=== PATIENT | female | born 1965 | race Hispanic/Latino ===

== ENCOUNTER 2017-05-23 21:08 | Inpatient (IN) | payer MEDICARE, OTHER ==
[2017-05-23] MEDS ORDERED: Succinylcholine 200 mg/10 ml Inj IV ONE (21:15)
--- NOTE | 2017-05-23 21:17 | ED PDOC ---
Arrival/HPI - General Chief Complaint: Altered Mental Status Time Seen by Provider: 05/23/17 21:09 Historian: EMS - History of Present Illness Narrative History of Present Illness (Text): 05/23/17 21:10 Albert Jovel is a 51 year old female, whose past medical history includes chronic pain and pancreatitis, who presents to the Emergency department brought in by ALS status post overdose. Mother states she found the patient unconscious earlier tonight and attempted to wake the patient multiple times without success. Patient noted to have multiple bottles of Oxycontin, Dilaudid, and Gabapentin. Limited HPI and ROS due patient's unresponsiveness. Time/Duration: Prior to Arrival Symptom Onset: Sudden Symptom Course: Unchanged Severity Level: Severe Context: Home Past Medical History - Provider Review Nursing Documentation Reviewed: Yes - Infectious Disease Hx of Infectious Diseases: None - Tetanus Immunization Tetanus Immunization: Unknown - Cardiac Hx Cardiac Disorders: No - Pulmonary Hx Respiratory Disorders: Yes Hx Asthma: Yes - Neurological Hx Neurological Disorder: No - HEENT Hx HEENT Disorder: No - Renal Hx Renal Disorder: No - Endocrine/Metabolic Hx Endocrine Disorders: No - Hematological/Oncological Hx Blood Disorders: No - Integumentary Hx Dermatological Disorder: No - Musculoskeletal/Rheumatological Hx Musculoskeletal Disorders: No - Gastrointestinal Hx Gastrointestinal Disorders: (pancreatic sphincter) Hx Gall Bladder Disease: Yes (w/complications affecting pancreas) Hx Pancreatitis: Yes - Genitourinary/Gynecological Hx Genitourinary Disorders: No - Psychiatric Hx Psychophysiologic Disorder: No Hx Substance Use: No - Surgical History Hx Cholecystectomy: Yes Hx Hysterectomy: Yes (SHYLA/BSO) Other/Comment: artificial knee cap right lower extremity - Anesthesia Hx Anesthesia: Yes Hx Anesthesia Reactions: No Hx Malignant Hyperthermia: No - Suicidal Assessment Feels Threatened In Home Enviroment: No Family/Social History - Physician Review Nursing Documentation Reviewed: Yes Family/Social History: Unknown Family HX Smoking Status: Never Smoked Hx Alcohol Use: No Hx Substance Use: No Hx Substance Use Treatment: No Allergies/Home Meds Allergies/Adverse Reactions: Allergies iodine Allergy (Verified 01/09/16 11:37) ANGIOEDEMA shellfish derived Allergy (Verified 01/09/16 11:37) ANAPHYLAXIS Sulfa (Sulfonamide Antibiotics) Allergy (Verified 01/09/16 11:37) ANGIOEDEMA Home Medications: Home Meds Medication Instructions Recorded Confirmed Alprazolam [Xanax] 0.5 mg PO DAILY PRN 05/23/17 05/23/17 Gabapentin [Neurontin] 600 mg PO PRN PRN 05/23/17 05/23/17 HYDROmorphone [Dilaudid] 4 mg PO QID PRN 05/23/17 05/23/17 Oxycodone HCl [Oxycontin] 60 mg PO Q12H 05/23/17 05/23/17 Zolpidem [Ambien] 10 mg PO HS 05/23/17 05/23/17 Review of Systems - Review of Systems Systems not reviewed;Unavailable: Other (Unresponsive/overdose) Psychiatric: Other (+overdose) Physical Exam Vital Signs Reviewed: Yes Vital Signs Temp Pulse Resp BP Pulse Ox 05/24/17 01:09 75 18 112/74 99 05/24/17 01:00 98.9 F 70 24 113/77 99 05/24/17 00:51 71 16 106/48 L 100 05/24/17 00:35 70 18 149/79 99 05/24/17 00:01 71 18 133/79 99 05/24/17 00:00 24 99 05/23/17 23:01 72 14 111/85 99 05/23/17 22:57 76 20 105/68 99 05/23/17 22:52 73 22 94/59 L 100 05/23/17 22:47 76 22 95/59 L 100 05/23/17 22:32 76 20 88/65 L 99 05/23/17 22:24 24 99 05/23/17 22:12 76 23 85/63 L 99 05/23/17 22:02 77 22 87/54 L 99 05/23/17 21:42 100.7 F H 78 28 H 78/58 L 99 05/23/17 21:20 99 05/23/17 21:18 75 28 H 112/71 99 05/23/17 21:15 10 L 05/23/17 21:09 10 L 82/61 L Temperature: Febrile Blood Pressure: Hypotensive Pulse: Regular Appearance: Positive for: Ill-Appearing Pain Distress: None Mental Status: Positive for: other (Unresponsive) - Systems Exam Head: Present: Atraumatic, Normocephalic Pupils: Present: Other (Dilated pupils bilaterally) Conjunctiva: Present: Normal Respiratory/Chest: Present: Clear to Auscultation. No: Respiratory Distress, Accessory Muscle Use Cardiovascular: Present: Regular Rate and Rhythm, Normal S1, S2. No: Murmurs Abdomen: Present: Normal Bowel Sounds. No: Tenderness, Distention, Peritoneal Signs Upper Extremity: Present: Normal Inspection. No: Cyanosis, Edema Lower Extremity: Present: Normal Inspection. No: Edema Neurological: Present: Other (Unresponsive) Skin: Present: Warm, Dry, Normal Color. No: Rashes Psychiatric: No: Alert, Oriented x 3 Medical Decision Making ED Course and Treatment: 05/23/17 21:10 Impression: 51 year old female brought in by ALS status post overdose. Differential Diagnosis included but are not limited to: overdose vs. sepsis Plan: -- CT Head w/o contrast -- EKG -- Chest X-ray -- Labs, VBG, alcohol level, blood cultures -- Urinalysis, urine drug screen -- IV fluids -- Quelicin -- Reassess and disposition Prior Visits: Notes and results from previous visits were reviewed. On 01/09/2016, pt was seen in the Emergency department for abdominal pain. Pt was d/c home. Progress Notes: Pt seen on arrival to Emergency department. Pt brought in unresponsive s/p overdose. Will intubate. 05/23/17 21:15 PROCEDURE: INTUBATION Performed by the emergency provider Consent: Discussion of the risks, benefits, and alternatives to the procedure, along with informed consent was precluded by the urgency of the procedure and the patient condition. Timeout: A timeout to verify the correct patient, procedure, and site was performed. Indication: Overdose Pre-oxygenation: [id number] Medications: See MAR for details. ETT Size: 8 gauge Confirmation: Cords directly visualized as tube passed, good bilateral breath sounds, positive CO2 detector color change, tube fogging, adequate chest rise, improving pulse oximetry reading, improved skin color, and absence of gastric sounds,. ETT Secured: The cuff was inflated and the tube was secured appropriately at a distance of 23 cm at the lip. Post-Procedure: There were no immediate complications. CXR Confirmation: Yes 05/23/17 21:29 Chest X-ray reviewed, shows ET tube above the darius, no acute processes. 05/23/17 21:45 Reviewed EKG, NSR at [address]-segment elevations or depressions, no T- wave inversions, normal intervals. 05/23/17 22:08 Labs noted, WBC:28.1, lactate: 3.1. Pt febrile, hypotensive. Code Sepsis called. Levaquin, Maxipime, Vancomycin, and IV fluids ordered. 05/23/17 23:[address] Pastrana, first dyer, who is aware and agrees with plan. Accepts pt in to ICU. Pt will be admitted to the ICU for sepsis and overdose under the hospitalist service. 05/23/17 23:52 CT Head shows: Brain: Mild atrophy. No intracranial hemorrhage. No mass. No definite edema. Ventricles: No hydrocephalus. Bones/joints: No acute fracture. Soft tissues: Unremarkable. Sinuses: No acute sinusitis. Mastoid air cells: No mastoid effusion. Orbits: Unremarkable as visualized. Tubes, lines and devices: Endotracheal tube. Orogastric tube. IMPRESSION: 1. No definite acute intracranial abnormality. 2. Incidental/non-acute findings are described above. 05/24/17 00:45 PROCEDURE: LUMBAR PUNCTURE Performed by the emergency provider Consent: Informed consent, after discussion of the risks, benefits, and alternatives to the procedure, was obtained from family present at bedside. Timeout: A timeout to verify the correct patient, procedure, and site was performed immediately prior to the procedure. Indication: Unresponsive, overdose Patient's position: position. Anesthesia: Local anesthesia: Lidocaine 1%. See MAR for details. Preparation: Patient was prepped and draped in the usual sterile fashion and sterile technique was used. The landmarks were identified. Needle size: A 20 gauge spinal needle. Lumbar entry space: L3/L4 level. Fluid appearance: Clear. Post-procedure: Site cleansed and adhesive bandage applied. The patient tolerated the procedure well with no immediate complications. CSF was sent to lab for analysis. - Critical Care Critical Care Minutes: 30 minutes Narrative Critical Care (Text): Management of overdose - Lab Interpretations Microbiology Results: Microbiology Results 05/23/17 21:25 Blood-Venous Blood Culture - Preliminary NO GROWTH AFTER 4 DAYS 05/23/17 21:10 Blood-Venous Blood Culture - Preliminary NO GROWTH AFTER 4 DAYS 05/23/17 21:38 Urine,[place] Urine Culture - Final Escherichia Coli Lab Results: 05/23/17 21:10 05/23/17 21:10 Lab Results 05/23/17 21:38: Urine Opiates Screen Positive H, Urine Methadone Screen Negative , Ur Barbiturates Screen Negative, Ur Phencyclidine Scrn Negative, Ur Amphetamines Screen Negative, U Benzodiazepines Scrn Positive, U Oth Cocaine Metabols Negative, U Cannabinoids Screen Negative 05/23/17 21:38: Urine Color Yellow, Urine Appearance Sl cloudy, Urine pH 6.0, Ur Specific [place] 1.020, Urine Protein 30 H, Urine Glucose (UA) 100 H, Urine Ketones Negative, Urine Blood Negative, Urine Nitrate Positive H, Urine Bilirubin Negative, Urine Urobilinogen 0.2, Ur Leukocyte Esterase Negative, Urine RBC Negative, Urine WBC 5 - 10, Ur Epithelial Cells 1 - 3, Urine Bacteria Many 05/23/17 21:10: Procalcitonin 1.07 H 05/23/17 21:10: Phosphorus 7.1 H, Magnesium 1.9 05/23/17 21:10: PT 13.0 H, INR 1.19 H, APTT 29.2 05/23/17 21:10: pO2 77 H, VBG pH 7.25 L, VBG pCO2 45.0, VBG HCO3 19.7 L, VBG Total CO2 21.1 L, VBG O2 Sat (Calc) 98.1 H, VBG Base Excess -7.4 L, VBG Potassium 5.2, Sodium 141.0, Chloride 111.0 H, Glucose 113 H, Lactate 3.1 H, FiO2 21.0, Venous Blood Potassium 5.2 05/23/17 21:10: Alcohol, Quantitative < 10 05/23/17 21:10: Salicylates < 1 L, Acetaminophen < 10.0 L 05/23/17 21:10: Sodium 143, Chloride 109 H, Potassium 5.1 H, Carbon Dioxide 20 L , Anion Gap 19, BUN 22 H, Creatinine 2.0 H, Est GFR ( Amer) 32, Est GFR ( Non-Af Amer) 26, Random Glucose 101, Calcium 9.2, Total Bilirubin 0.7, AST 326 H , ALT 241 H, Alkaline Phosphatase 154 H, Total Protein 7.2, Albumin 4.0, Globulin 3.2, Albumin/Globulin Ratio 1.3 05/23/17 21:10: WBC 28.1 H* D, RBC 5.08, Hgb 13.9, Hct 43.1, MCV 84.8, MCH 27.4 , MCHC 32.3, RDW 15.4 H, Plt Count 386, MPV 8.9, Gran % 86.2 H, Lymph % (Auto) 6.3 L, Fannin % (Auto) 7.4 H, Eos % (Auto) 0.0 L, Baso % (Auto) 0.1, Gran # 24.24 H, Lymph # 1.8, Fannin # 2.1 H, Eos # 0.0, Baso # 0.02 I have reviewed the lab results: Yes - RAD Interpretation Radiology Orders: 05/23/17 21:28 HEAD W/O CONTRAST [CT] Stat 05/23/17 21:29 CHEST PORTABLE [RAD] Stat Payroll Assistant: ED Physician, Radiologist - EKG Interpretation Interpreted by ED Physician: Yes Type: 12 lead EKG - Medication Orders Current Medication Orders: Discontinued Medications Albuterol/Ipratropium (Duoneb 3 Mg/0.5 Mg (3 Ml) Ud) 3 ml IH [id number] PRN PRN Reason: Wheezing Last Admin: 05/26/17 05:58 Dose: 3 ml Benzonatate (Tessalon Perles) 100 mg PO TID JOSEY Last Admin: 05/27/17 13:29 Dose: 100 mg Doxycycline Hyclate (Doryx) 100 mg PO Q12 JOSEY PRN Reason: Protocol Stop: 06/01/17 10:01 Last Admin: 05/27/17 10:15 Dose: 100 mg Haloperidol Lactate (Haldol) 2 mg IVP Q4H PRN; Protocol PRN Reason: Agitation Last Admin: 05/24/17 22:06 Dose: 2 mg IVP Administration Document 05/24/17 22:06 MS (Rec: 05/24/17 22:07 MS [id number]) Charges for Administration # of IVP Administrations 1 Behavioural Document 05/24/17 22:06 MS (Rec: 05/24/17 22:07 MS [id number]) Maintenance Maintenance Dose No Nonmedicinal Nonmedicinal Interventions Therapeutic Communication Behavior Behavior for Medication: Anxiety Re-Assess: Reassess Psych Meds Document 05/24/17 23:06 MS (Rec: 05/24/17 23:29 MS [id number]) Reassess Psych Med Effective Haloperidol Lactate (Haldol) 2 mg IVP STAT STA PRN Reason: Protocol Stop: 05/24/17 10:43 Last Admin: 05/24/17 10:48 Dose: 2 mg IVP Administration Document 05/24/17 10:48 ALIPM (Rec: 05/24/17 10:48 ALIPM [id number] Charges for Administration # of IVP Administrations 1 Behavioural Document 05/24/17 10:48 ALIPM (Rec: 05/24/17 10:48 ALIPM [id number]) Maintenance Maintenance Dose Yes Nonmedicinal Nonmedicinal Interventions Therapeutic Communication Behavior Behavior for Medication: Anxiety Continuous pacing/restlessness Sodium Chloride (Sodium Chloride 0.9%) 500 mls @ 1,000 mls/hr IV .Q30M STA Stop: 05/23/17 21:57 Last Admin: 05/23/17 21:42 Dose: 1,000 mls/hr eMAR Start Stop Document 05/23/17 21:42 SS (Rec: 05/23/17 21:42 SS [id number]) Intravenous Solution Start Date 05/23/17 Start Time 21:42 End Date 05/23/17 End time 22:42 Total Infusion Time 60 Levofloxacin/Dextrose (Levaquin 750mg) 750 mg in 150 mls @ 100 mls/hr IVPB STAT STA Stop: 05/23/17 23:37 Last Admin: 05/23/17 22:20 Dose: 100 mls/hr eMAR Start Stop Document 05/23/17 22:20 SS (Rec: 05/23/17 22:43 SS [id number]) Intravenous Solution Start Date 05/23/17 Start Time 22:43 Cefepime HCl (Maxipime 2gm) 2 gm in 100 mls @ 100 mls/hr IVPB STAT STA PRN Reason: Protocol Stop: 05/23/17 23:07 Last Admin: 05/24/17 00:08 Dose: 100 mls/hr eMAR Start Stop Document 05/24/17 00:08 [email or web address] (Rec: 05/24/17 00:08 [email or web address] [id number]) Intravenous Solution Start Date 05/24/17 Start Time 00:08 End Date 05/24/17 Sodium Chloride 2,100 ml/ IV (SUPPLIES) 2,100 mls @ 4,354.5 mls/hr IV ONCE ONE PRN Reason: 60 ML/KG/HR Stop: 05/23/17 22:09 Last Admin: 05/24/17 00:09 Dose: 4,354.5 mls/hr eMAR Start Stop Document 05/24/17 00:09 SS (Rec: 05/24/17 00:09 SS [id number]) Intravenous Solution Start Date 05/24/17 Start Time 00:09 Vancomycin HCl (Vancomycin 1gm) 1 gm in 250 mls @ 167 mls/hr IVPB STAT STA PRN Reason: Protocol Stop: 05/23/17 23:54 Last Admin: 05/24/17 01:09 Dose: 167 mls/hr eMAR Start Stop Document 05/24/17 01:09 SS (Rec: 05/24/17 01:10 SS [id number]) Intravenous Solution Start Date 05/24/17 Start Time 01:10 Acetylcysteine 200 mg/ (Dextrose) 201 mls @ 200 mls/hr IV .Q1H1M ONE Stop: 05/24/17 00:05 Acetylcysteine 3,600 mg/ (Dextrose) 518 mls @ 125 mls/hr IV .Q4H9M ONE Stop: 05/24/17 04:38 Last Admin: 05/24/17 02:17 Dose: 125 mls/hr eMAR Start Stop Document 05/24/17 02:17 MHA (Rec: 05/24/17 03:13 A [email or web address]) Intravenous Solution Start Date 05/24/17 Start Time 02:17 End Date 05/24/17 End time 06:17 Total Infusion Time 240 Acetylcysteine 10,800 mg/ (Dextrose) 254 mls @ 200 mls/hr IV .Q1H17M ONE Stop: 05/24/17 00:21 Last Admin: 05/24/17 02:00 Dose: 200 mls/hr eMAR Start Stop Document 05/24/17 02:00 MHA (Rec: 05/24/17 03:11 A [email or web address]) Intravenous Solution Start Date 05/24/17 Start Time 02:00 End Date 05/24/17 End time 02:17 Total Infusion Time 17 Acetylcysteine 7,200 mg/ (Dextrose) 1,036 mls @ 62.5 mls/hr IV .[id number] ONE Stop: 05/24/17 21:04 Last Admin: 05/24/17 07:01 Dose: 62.5 mls/hr eMAR Start Stop Document 05/24/17 07:01 A (Rec: 05/24/17 07:01 [email or web address] Solution Start Date 05/24/17 Start Time 07:01 Sodium Chloride 2,100 ml/ IV (SUPPLIES) 2,100 mls @ 4,354.5 mls/hr IV ONCE ONE PRN Reason: 60 ML/KG/HR Stop: 05/23/17 23:20 Last Admin: 05/24/17 00:09 Dose: 4,354.5 mls/hr eMAR Start Stop Document 05/24/17 00:09 [facility] (Rec: 05/24/17 00:09 CAST [id number]) Intravenous Solution Start Date 05/24/17 Start Time 00:09 End Date 05/24/17 Acyclovir 720 mg/ Sodium (Chloride) 100 mls @ 100 mls/hr IV STAT STA PRN Reason: Protocol Stop: 05/24/17 00:20 Last Admin: 05/24/17 03:00 Dose: 100 mls/hr eMAR Start Stop Document 05/24/17 03:00 A (Rec: 05/24/17 03:22 [email or web address] Intraven[facility] Solution Start Date 05/24/17 Start Time 03:00 End Date 05/24/17 End time 04:00 Total Infusion Time 60 Naloxone HCl 2.4 mg/ Sodium (Chloride) 246 mls @ 61.5 mls/hr IV .Q4H ONE PRN Reason: 0.6 MG/HR Stop: 05/24/17 03:30 Naloxone HCl 2.4 mg/ Sodium (Chloride) 252 mls @ 63 mls/hr IV .Q4H ONE PRN Reason: 0.6 MG/HR Stop: 05/24/17 03:30 Last Admin: 05/24/17 02:00 Dose: 63 mls/hr eMAR Start Stop Document 05/24/17 02:00 MHA (Rec: 05/24/17 03:17 [email or web address] Intraven[facility] Solution Start Date 05/24/17 Start Time 02:00 Acyclovir 700 mg/ Sodium (Chloride) 100 mls @ 100 mls/hr IV Q8 JOSEY PRN Reason: Protocol Vancomycin HCl (Vancomycin 1gm) 1 gm in 250 mls @ 167 mls/hr IVPB Q12H JOSEY PRN Reason: Protocol Last Admin: 05/25/17 00:04 Dose: 167 mls/hr eMAR Start Stop Document 05/25/17 00:04 VM (Rec: 05/25/17 00:05 VM [id number]) Intravenous Solution Start Date 05/25/17 Start Time 00:04 End Date 05/25/17 End time 01:34 Total Infusion Time 90 Ceftriaxone Sodium (Rocephin 2 Gm Ivpb) 2 gm in 100 mls @ 100 mls/hr IVPB DAILY JOSEY PRN Reason: Protocol Last Admin: 05/25/17 09:19 Dose: 100 mls/hr eMAR Start Stop Document 05/25/17 09:19 MMA (Rec: 05/25/17 09:19 MMA [email or web address]) Intravenous Solution Start Date 05/25/17 Start Time 10:25 End Date 05/25/17 End time 11:30 Total Infusion Time 65 Acyclovir 700 mg/ Sodium (Chloride) 100 mls @ 100 mls/hr IV Q12 JOSEY PRN Reason: Protocol Last Admin: 05/24/17 10:49 Dose: 100 mls/hr eMAR Start Stop Document 05/24/17 10:49 ALIPM (Rec: 05/24/17 10:49 ALIPM [id number]) Intravenous Solution Start Date 05/24/17 Start Time 10:49 End Date 05/24/17 End time 11:49 Total Infusion Time 60 Sodium Chloride (Sodium Chloride 0.9%) 1,000 mls @ 125 mls/hr IV .Q8H JOSEY Last Admin: 05/24/17 03:00 Dose: 125 mls/hr eMAR Start Stop Document 05/24/17 03:00 MHA (Rec: 05/24/17 03:19 MHA [email or web address]) Intravenous Solution Start Date 05/24/17 Start Time 03:00 End Date 05/24/17 End time 11:00 Total Infusion Time 480 Propofol (Diprivan) 1,000 mg in 100 mls @ 2.177 mls/hr IV .Q24H PRN; Protocol; 5 MCG/KG/MIN PRN Reason: TITRATE PER MD ORDER Last Titration: 05/24/17 10:45 Dose: 0 mcg/kg/min, 0 mls/hr Titration Intervention Document 05/24/17 10:45 ALIPM (Rec: 05/24/17 10:[address]) Titration Intake Titration Intake 5 Cumulative Intake 5 Cumulative Intake (Rx) 105 Waste Amount 0 Container Volume 95 Titration Dosing Titration Dose 0 IV Rate 0 Intake/Decrease Paused Cumulative Dose 1050 Sodium Bicarbonate 150 meq/ (Dextrose) 1,150 mls @ 150 mls/hr IV .Q7H40M JOSEY Last Admin: 05/25/17 02:37 Dose: 150 mls/hr eMAR Start Stop Document 05/25/17 02:37 MS (Rec: 05/25/17 02:37 MS [id number]) Intravenous Solution Start Date 05/25/17 Start Time 02:37 Dexmedetomidine HCl (Precedex 4 Mcg/Ml (100 Ml)) 400 mcg in 100 mls @ 4.418 mls /hr IV .[id number] PRN; Protocol; 0.2 MCG/KG/HR PRN Reason: Agitation Last Titration: 05/24/17 13:55 Dose: 0 mcg/kg/hr, 0 mls/hr Bosch Agitation Sedation Document 05/24/17 13:55 ALIPM (Rec: 05/24/17 16:[address]) Bosch Agitation Sedation Scale Bosch Agitation Sedation Scale Score -1 Drowsy Titration Intervention Document 05/24/17 13:55 ALIPM (Rec: 05/24/17 16:[address]) Titration Intake Titration Intake 10 Cumulative Intake 21 Cumulative Intake (Rx) 21 Waste Amount 0 Container Volume 79 Titration Dosing Titration Dose 0 IV Rate 0 Intake/Decrease Paused Cumulative Dose 84 Doxycycline Hyclate 100 mg/ (Sodium Chloride) 100 mls @ 100 mls/hr IVPB Q12 JOSEY PRN Reason: Protocol Last Admin: 05/24/17 21:58 Dose: 100 mls/hr eMAR Start Stop Document 05/24/17 21:58 MS (Rec: 05/24/17 21:58 MS [id number]) Intravenous Solution Start Date 05/24/17 Start Time 21:58 End Date 05/24/17 End time 22:58 Total Infusion Time 60 Potassium Chloride (Potassium Chloride 20 Meq/100 Ml) 20 meq in 100 mls @ 50 mls/hr IVPB Q2H JOSEY Stop: 05/24/17 22:14 Last Admin: 05/24/17 22:08 Dose: 50 mls/hr eMAR Start Stop Document 05/24/17 22:08 MS (Rec: 05/24/17 22:08 MS [id number]) Intravenous Solution Start Date 05/24/17 Start Time 22:08 Potassium Phosphate 15 mmole/ (Sodium Chloride) 255 mls @ 42.5 mls/hr IVPB ONCE ONE Stop: 05/25/17 13:35 Last Admin: 05/25/17 09:19 Dose: 42.5 mls/hr eMAR Start Stop Document 05/25/17 09:19 MMA (Rec: 05/25/17 09:23 MMA [email or web address]) Intravenous Solution Start Date 05/25/17 Start Time 09:23 End Date 05/25/17 End time 15:23 Total Infusion Time 360 Metronidazole (Flagyl) 500 mg in 100 mls @ 100 mls/hr IVPB Q8 JOSEY PRN Reason: Protocol Last Admin: 05/26/17 06:17 Dose: 100 mls/hr eMAR Start Stop Document 05/26/17 06:17 CRANE (Rec: 05/26/17 06:17 CRANE [id number]) Intravenous Solution Start Date 05/26/17 Start Time 06:17 Lactated Ringer's (Lactated Ringer's) 1,000 mls @ 150 mls/hr IV .Q6H40M JOSEY Last Admin: 05/27/17 15:14 Dose: Ceftriaxone Sodium (Rocephin 1 Gram Ivpb) 1 gm in 100 mls @ 100 mls/hr IVPB DAILY JOSEY PRN Reason: Protocol Last Admin: 05/26/17 10:24 Dose: 100 mls/hr eMAR Start Stop Document 05/26/17 10:24 AE (Rec: 05/26/17 10:24 AE [email or web address]) Intravenous Solution Start Date 05/26/17 Start Time 10:24 End Date 05/26/17 End time 11:25 Total Infusion Time 61 Ibuprofen (Motrin Tab) 400 mg PO Q6H PRN PRN Reason: Headache Last Admin: 05/26/17 12:38 Dose: 400 mg MAR Pain/Vitals Document 05/26/17 12:38 AE (Rec: 05/26/17 12:38 AE [id number] Pain Reassessment Is This A Pain ReAssessment? No Sleep Is patient sleeping during reassessment? No Presence of Pain Presence of Pain Yes Pain Scale Used Pain Scale Used Numeric Location Pain Location Body Acute Specialist Description Constant Intensity 10 Scale Used Numeric Pain Behavior Moaning Irritability Lactobacillus Acidophilus (Bacid Acidophilus) 1 cap PO BID [facility] Last Admin: 05/27/17 10:15 Dose: 1 cap Loperamide HCl (Imodium) 2 mg PO QID PRN PRN Reason: Diarrhea Last Admin: 05/27/17 08:34 Dose: 2 mg Methylprednisolone (Solu-Medrol) 20 mg IVP Q12 [facility] Stop: 05/29/17 12:30 Last Admin: 05/26/17 10:25 Dose: Morphine Sulfate (Morphine) 2 mg IVP Q4H PRN PRN Reason: Pain moderate Last Admin: 05/25/17 22:26 Dose: 2 mg [facility] Pain Assessment Document 05/25/17 22:26 CRANE (Rec: 05/25/17 22:[address]) Pain Reassessment Is this a pain reassessment? No IVP Administration Document 05/25/17 22:26 CRANE (Rec: 05/25/17 22:[address]) Charges for Administration # of IVP Administrations 1 Re-Assess: [facility] Pain Assessment Document 05/25/17 23:26 CRNAE (Rec: 05/25/17 23:[address]) Pain Reassessment Is this a pain reassessment? No Sleep Is patient sleeping during reassessment? Yes Oseltamivir Phosphate (Tamiflu Cap) 75 mg PO BID JOSEY PRN Reason: Protocol Stop: 05/29/17 12:26 Last Admin: 05/25/17 17:28 Dose: 75 mg Pantoprazole Sodium (Protonix Inj) 40 mg IVP DAILY [facility] Last Admin: 05/27/17 10:17 Dose: 40 mg IVP Administration Document 05/27/17 10:17 JW (Rec: 05/27/17 10:17 DANELLE [id number]) Charges for Administration # of IVP Administrations 1 Potassium Chloride (Potassium Chloride Oral Soln) 40 meq PO ONCE ONE Stop: 05/26/17 08:03 Last Admin: 05/26/17 08:19 Dose: 40 meq Potassium Chloride (Potassium Chloride Oral Soln) 40 meq PO ONCE ONE Stop: 05/27/17 09:38 Last Admin: 05/27/17 10:16 Dose: 40 meq Succinylcholine Chloride (Quelicin) 80 mg IV STAT STA Stop: 05/23/17 21:31 Last Admin: 05/23/17 21:43 Dose: Zolpidem Tartrate (Ambien) 5 mg PO ONCE ONE PRN Reason: Protocol Stop: 05/26/17 00:49 Last Admin: 05/26/17 01:02 Dose: 5 mg Behavioural Document 05/26/17 01:02 CRANE (Rec: 05/26/17 01:03 CRANE [id number]) Maintenance Maintenance Dose Yes Nonmedicinal Nonmedicinal Interventions Therapeutic Communication Behavior Behavior for Medication: Insomnia Zolpidem Tartrate (Ambien) 5 mg PO ONCE ONE PRN Reason: Protocol Stop: 05/26/17 18:03 Last Admin: 05/26/17 21:01 Dose: Zolpidem Tartrate (Ambien) 5 mg PO ONCE ONE PRN Reason: Protocol Stop: 05/26/17 20:31 Last Admin: 05/26/17 21:01 Dose: 5 mg Zolpidem Tartrate (Ambien) 5 mg PO STAT STA PRN Reason: Protocol Stop: 05/26/17 22:37 Last Admin: 05/26/17 22:54 Dose: 5 mg - Scribe Statement The provider has reviewed the documentation as recorded by the Norma Grier Provider Scribe Attestation: All medical record entries made by the Norma were at my direction and personally dictated by me. I have reviewed the chart and agree that the record accurately reflects my personal performance of the history, physical exam, medical decision making, and the department course for this patient. I have also personally directed, reviewed, and agree with the discharge instructions and disposition. Disposition/Present on Arrival - Present on Arrival Any Indicators Present on Arrival: No History of DVT/PE: No History of Uncontrolled Diabetes: No Urinary Catheter: No History of Decub. Ulcer: No History Surgical Site Infection Following: None - Disposition Have Diagnosis and Disposition been Completed?: Yes Diagnosis: Overdose, Sepsis Disposition: HOSPITALIZED Disposition Time: 23:20 Condition: CRITICAL
[2017-05-23] MEDS ORDERED: Sodium Chloride 0.9% 500 ML IV STA (21:28)
[2017-05-23] MEDS ORDERED: Succinylcholine 200 mg/10 ml Inj IV STA (21:30)
[2017-05-23 21:55] LABS: URINE BILIRUBIN NEGATIVE (NEGATIVE); URINE BLOOD NEGATIVE (NEGATIVE); URINE GLUCOSE (UA) 100 mg/dL (NEGATIVE); URINE KETONE NEGATIVE (NEGATIVE); URINE LEUKOCYTE ESTERASE NEGATIVE Leu/uL (NEGATIVE); URINE PROTEIN 30 mg/dL (<30 mg/dL); URINE UROBILINOGEN 0.2 E.U./dL (<1 E.U./dL)
[2017-05-23 21:58] LABS: VENOUS BLOOD GAS BASE EXCESS -7.4 mmol/L (0.0-2.0); VENOUS BLOOD PH 7.25 (7.32-7.43)
[2017-05-23 22:04] LABS: ALB/GLOB RATIO 1.3 (1.1-1.8); BASO # 0.02 K/mm3 (0.0-2.0); BASO % 0.1 % (0.0-3.0); BILIRUBIN,TOTAL 0.7 mg/dL (0.2-1.3); CALCIUM 9.2 mg/dL (8.4-10.5); GRAN # 24.24 (1.4-6.5); GRAN % 86.2 % (50.0-68.0); HEMATOCRIT 43.1 % (36.0-48.0); LYMPH # 1.8 (1.2-3.4); LYMPH % 6.3 % (22.0-35.0); MEAN CELL VOLUME 84.8 fl (80.0-105.0); MEAN CORPUSCULAR HEMOGLOBIN 27.4 pg (25.0-35.0); MEAN CORPUSCULAR HGB CONC 32.3 g/dl (31.0-37.0); MEAN PLATELET VOLUME 8.9 fl (7.0-11.0); MONO # 2.1 (0.1-0.6); MONO % 7.4 % (1.0-6.0); POTASSIUM 5.1 mmol/L (3.6-5.0); RED CELL DISTRIBUTION WIDTH 15.4 % (11.5-14.5); TOTAL PROTEIN 7.2 g/dL (5.8-8.3)
[2017-05-23] MEDS ORDERED: Cefepime IV 2 gm in NS 2 GM/100 ML BAG IVPB STA (22:08)
[2017-05-23] MEDS ORDERED: levoFLOXacin 750 mg in D5W 750 MG/150 ML BAG IVPB STA (22:08)
[2017-05-23 22:09] LABS: URINE APPEARANCE SL CLOUDY (CLEAR); URINE COLOR YELLOW (YELLOW)
[2017-05-23 22:11] LABS: WHITE BLOOD COUNT 28.1 10^3/ul (4.5-11.0)
[2017-05-23 22:13] LABS: URINE BACTERIA MANY (NEG); URINE RBC NEGATIVE /hpf (0-2)
[2017-05-23] MEDS ORDERED: Vancomycin 1gm in NS 250ml 1 GM/250 ML BAG IVPB STA (22:25)
[2017-05-23 22:32] LABS: MAGNESIUM 1.9 mg/dL (1.7-2.2); PHOSPHOROUS 7.1 mg/dL (2.5-4.5)
[2017-05-23 22:40] LABS: INR 1.19 (0.93-1.08); PARTIAL THROMBOPLASTIN TIME 29.2 Seconds (25.1-36.5)
[2017-05-23] MEDS ORDERED: WATER IV ONE ×2 (23:05→23:10)
[2017-05-23] MEDS ORDERED: DEXTROSE 5% IV ONE ×2 (23:05→23:10)
[2017-05-23] MEDS ORDERED: ACETYLCYSTEINE IV ONE ×2 (23:05→23:10)
[2017-05-23] MEDS ORDERED: SODIUM CHLORIDE 0.9% IV STA (23:21)
[2017-05-23] MEDS ORDERED: ACYCLOVIR IV STA (23:21)
[2017-05-23] MEDS ORDERED: Naloxone 2.4 MG in Sodium Chloride 0.9% 240 ML IV ONE (23:31)
--- NOTE | 2017-05-23 23:52 | CT ---
EXAM: CT Head Without Intravenous Contrast CLINICAL HISTORY: 51 years old, female; Signs and symptoms; Altered mental status/memory loss; Additional info: AMS TECHNIQUE: Axial computed tomography images of the head/brain without intravenous contrast. All CT scans at this facility use one or more dose reduction techniques, viz.: automated exposure control; ma/kV adjustment per patient size (including targeted exams where dose is matched to indication; i.e. head); or iterative reconstruction technique. COMPARISON: No relevant prior studies available. FINDINGS: Brain: Mild atrophy. No intracranial hemorrhage. No mass. No definite edema. Ventricles: No hydrocephalus. Bones/joints: No acute fracture. Soft tissues: Unremarkable. Sinuses: No acute sinusitis. Mastoid air cells: No mastoid effusion. Orbits: Unremarkable as visualized. Tubes, lines and devices: Endotracheal tube. Orogastric tube. IMPRESSION: 1. No definite acute intracranial abnormality. 2. Incidental/non-acute findings are described above.
[2017-05-23] MEDS ORDERED: NALOXONE IV ONE (23:59)
[2017-05-23] MEDS ORDERED: SODIUM CHLORIDE 0.9% IV ONE (23:59)
--- NOTE | 2017-05-24 00:01 | CP.PCM.HP ---
Addendum entered and electronically signed by Agustin Lloyd DO 05/24/17 02:26 : Physical Exam: Babinski and Gibbons signs were both negative A&P: Neuro: consider starting Dexamethasone if CSF cultures grow G+ bacteria ID: UA showed +nitrates but low WBC cont to monitor for signs of UTI Original Note: <Agustin Lloyd - Last Filed: 05/24/17 02:14> History of Present Illness - History of Present Illness History of Present Illness: Ms. Jovel is a 51yo F PMH migraines, chronic pancreatitis and asthma who presents to the ED unresponsive. Per mother, the pt filled prescriptions for oxycodone and dilaudid earlier today, which she takes for her chronic pain due to pancreatitis. the mother states that the pt told her that she was not feeling well and that she would rest a bit. hours later, the patient was found in her room with her head leaning back and unresponsive. the mother notes that the patient was breathing but was labored and sounded garggly, and that she had empty bottles of medications near her. ROS was limited due to patient being intubated. Per mother, the patient does not use cocaine or heroin, or ETOH. pt does smoke tobacco. En route to ED, 4mg Narcan and 500cc NS bolus were adminstered by EMT but pt did not regain consciousness. In ED, pt was intubated to protect airway. Code sepsis was called due to Lactate 3.1, WBC 28.1 and fever of 100.7 PMD: Katy Marcus NP pain mgmt: Dr. Rivas PMH: as above PSH: R knee surgery, ablation of celiac plexus (2013), cholecystectomy, hysterectomy Meds: bottles included Oxycontin, Dilaudid, and Gabapentin Allergies: iodine/contrast (anaphylaxis), shellfish, sulfa meds SHx: per mom: +tobacco, negative cocaine/heroin. on disability Present on Admission - Present on Admission Any Indicators Present on Admission: No History of DVT/PE: No History of Uncontrolled Diabetes: No Urinary Catheter: No Decubitus Ulcer Present: No Review of Systems - Review of Systems Systems not reviewed;Unavailable: Altered Mental Status, Intubated Past Patient History - Infectious Disease Hx of Infectious Diseases: None - Tetanus Immunizations Tetanus Immunization: Unknown - Past Medical History & Family History Past Medical History?: Yes - Past Social History Smoking Status: Current Some Days Smoker Alcohol: None Drugs: Other (per mother, pt does not use any substances) Home Situation {Lives}: With Family - CARDIAC Hx Cardiac Disorders: No - PULMONARY Hx Respiratory Disorders: Yes Hx Asthma: Yes - NEUROLOGICAL Hx Neurological Disorder: No - HEENT Hx HEENT Problems: No - RENAL Hx Chronic Kidney Disease: No - ENDOCRINE/METABOLIC Hx Endocrine Disorders: No - HEMATOLOGICAL/ONCOLOGICAL Hx Blood Disorders: No - INTEGUMENTARY Hx Dermatological Problems: No - MUSCULOSKELETAL/RHEUMATOLOGICAL Hx Musculoskeletal Disorders: No - GASTROINTESTINAL Hx Gastrointestinal Disorders: (pancreatic sphincter) Hx Gall Bladder Disease: Yes (w/complications affecting pancreas) Hx Pancreatitis: Yes - GENITOURINARY/GYNECOLOGICAL Hx Genitourinary Disorders: No - PSYCHIATRIC Hx Psychophysiologic Disorder: No Hx Substance Use: No - SURGICAL HISTORY Hx Cholecystectomy: Yes Hx Hysterectomy: Yes (SHYLA/BSO) Hx Orthopedic Surgery: Yes (R knee surgery) Other/Comment: artificial knee cap right lower extremity - ANESTHESIA Hx Anesthesia: Yes Hx Anesthesia Reactions: No Hx Malignant Hyperthermia: No Meds Allergies/Adverse Reactions: Allergies Allergy/AdvReac Type Severity Reaction Status Date / Time iodine Allergy ANGIOEDEMA Verified 01/09/16 11:37 shellfish derived Allergy ANAPHYLAXIS Verified 01/09/16 11:37 Sulfa (Sulfonamide Allergy ANGIOEDEMA Verified 01/09/16 11:37 Antibiotics) Physical Exam - Constitutional Appears: Other (intubated) - Head Exam Head Exam: ATRAUMATIC, NORMAL INSPECTION, NORMOCEPHALIC - Eye Exam Eye Exam: Normal appearance Pupil Exam: Irregular. absent: Miosis - ENT Exam ENT Exam: Mucous Membranes Moist, Normal Exam - Neck Exam Neck exam: Positive for: Normal Inspection - Respiratory Exam Respiratory Exam: Rhonchi (b/l diffuse due to sputum in suction) Additional comments: intubated Vent settings: PRVC, PEEP 5, RR 14, VT 500, O2 100 - Cardiovascular Exam Cardiovascular Exam: RRR, +S1, +S2 - GI/Abdominal Exam GI & Abdominal Exam: Normal Bowel Sounds, Soft. absent: Tenderness - Exam Additional comments: levy catheter in place - Extremities Exam Extremities exam: Positive for: normal inspection. Negative for: pedal edema - Back Exam Back exam: NORMAL INSPECTION - Neurological Exam Neurological exam: Altered - Expanded Neurological Exam Expanded Coma Scale Eye Opening: None Coma Scale Motor Response: Withdraws to Pain Coma Scale Verbal: None Coma Scale Total: 6 - Skin Skin Exam: Normal Color, Warm - Additional Findings Additional findings: 2 peripheral IV lines in AC of both UE levy catheter in place intubated Results - Vital Signs Recent Vital Signs: Last Vital Signs Temp 100.7 F H 05/23/17 21:42 Pulse 76 05/23/17 22:57 Resp 20 05/23/17 22:57 BP 105/68 05/23/17 22:57 Pulse Ox 99 05/23/17 22:57 - Labs Result Diagrams: 05/23/17 21:10 05/23/17 21:10 Labs: Laboratory Results - last 24 hr 05/23/17 05/23/17 05/23/17 21:10 21:10 21:10 WBC 28.1 H* D RBC 5.08 Hgb 13.9 Hct 43.1 MCV 84.8 MCH 27.4 MCHC 32.3 RDW 15.4 H Plt Count 386 MPV 8.9 Gran % 86.2 H Lymph % (Auto) 6.3 L Newton % (Auto) 7.4 H Eos % (Auto) 0.0 L Baso % (Auto) 0.1 Gran # 24.24 H Lymph # 1.8 Newton # 2.1 H Eos # 0.0 Baso # 0.02 PT INR APTT pO2 VBG pH VBG pCO2 VBG HCO3 VBG Total CO2 VBG O2 Sat (Calc) VBG Base Excess VBG Potassium Sodium 143 Chloride 109 H Glucose Lactate FiO2 Potassium 5.1 H Carbon Dioxide 20 L Anion Gap 19 BUN 22 H Creatinine 2.0 H Est GFR ( Amer) 32 Est GFR (Non-Af Amer) 26 Random Glucose 101 Calcium 9.2 Phosphorus Magnesium Total Bilirubin 0.7 AST 326 H ALT 241 H Alkaline Phosphatase 154 H Total Protein 7.2 Albumin 4.0 Globulin 3.2 Albumin/Globulin Ratio 1.3 Venous Blood Potassium Urine Color Urine Appearance Urine pH Ur Specific [place] Urine Protein Urine Glucose (UA) Urine Ketones Urine Blood Urine Nitrate Urine Bilirubin Urine Urobilinogen Ur Leukocyte Esterase Urine RBC Urine WBC Ur Epithelial Cells Urine Bacteria Salicylates < 1 L Urine Opiates Screen Urine Methadone Screen Acetaminophen < 10.0 L Ur Barbiturates Screen Ur Phencyclidine Scrn Ur Amphetamines Screen U Benzodiazepines Scrn U Oth Cocaine Metabols U Cannabinoids Screen Alcohol, Quantitative 05/23/17 05/23/17 05/23/17 21:10 21:10 21:10 WBC RBC Hgb Hct MCV MCH MCHC RDW Plt Count MPV Gran % Lymph % (Auto) Newton % (Auto) Eos % (Auto) Baso % (Auto) Gran # Lymph # Newton # Eos # Baso # PT 13.0 H INR 1.19 H APTT 29.2 pO2 77 H VBG pH 7.25 L VBG pCO2 45.0 VBG HCO3 19.7 L VBG Total CO2 21.1 L VBG O2 Sat (Calc) 98.1 H VBG Base Excess -7.4 L VBG Potassium 5.2 Sodium 141.0 Chloride 111.0 H Glucose 113 H Lactate 3.1 H FiO2 21.0 Potassium Carbon Dioxide Anion Gap BUN Creatinine Est GFR ( Amer) Est GFR (Non-Af Amer) Random Glucose Calcium Phosphorus Magnesium Total Bilirubin AST ALT Alkaline Phosphatase Total Protein Albumin Globulin Albumin/Globulin Ratio Venous Blood Potassium 5.2 Urine Color Urine Appearance Urine pH Ur Specific [place] Urine Protein Urine Glucose (UA) Urine Ketones Urine Blood Urine Nitrate Urine Bilirubin Urine Urobilinogen Ur Leukocyte Esterase Urine RBC Urine WBC Ur Epithelial Cells Urine Bacteria Salicylates Urine Opiates Screen Urine Methadone Screen Acetaminophen Ur Barbiturates Screen Ur Phencyclidine Scrn Ur Amphetamines Screen U Benzodiazepines Scrn U Oth Cocaine Metabols U Cannabinoids Screen Alcohol, Quantitative < 10 05/23/17 05/23/17 05/23/17 21:10 21:38 21:38 WBC RBC Hgb Hct MCV MCH MCHC RDW Plt Count MPV Gran % Lymph % (Auto) Newton % (Auto) Eos % (Auto) Baso % (Auto) Gran # Lymph # Newton # Eos # Baso # PT INR APTT pO2 VBG pH VBG pCO2 VBG HCO3 VBG Total CO2 VBG O2 Sat (Calc) VBG Base Excess VBG Potassium Sodium Chloride Glucose Lactate FiO2 Potassium Carbon Dioxide Anion Gap BUN Creatinine Est GFR ( Amer) Est GFR (Non-Af Amer) Random Glucose Calcium Phosphorus 7.1 H Magnesium 1.9 Total Bilirubin AST ALT Alkaline Phosphatase Total Protein Albumin Globulin Albumin/Globulin Ratio Venous Blood Potassium Urine Color Yellow Urine Appearance Sl cloudy Urine pH 6.0 Ur Specific [place] 1.020 Urine Protein 30 H Urine Glucose (UA) 100 H Urine Ketones Negative Urine Blood Negative Urine Nitrate Positive H Urine Bilirubin Negative Urine Urobilinogen 0.2 Ur Leukocyte Esterase Negative Urine RBC Negative Urine WBC 5 - 10 Ur Epithelial Cells 1 - 3 Urine Bacteria Many Salicylates Urine Opiates Screen Positive H Urine Methadone Screen Negative Acetaminophen Ur Barbiturates Screen Negative Ur Phencyclidine Scrn Negative Ur Amphetamines Screen Negative U Benzodiazepines Scrn Positive U Oth Cocaine Metabols Negative U Cannabinoids Screen Negative Alcohol, Quantitative Assessment & Plan - Assessment and Plan (Free Text) Assessment: 51yo F PMH chronic pancreatitis on opioids, migraines and asthma who presented to ED unresponsive. Patient given Narcan by EMT with no response. AMS likely 2/ 2 sepsis from UTI vs pneumonia vs meningitis or substance abuse or intracranial hemorrhage Plan: Neuro: patient is unresponsive 2/2 possible drug overdose vs sepsis vs intracranial hemorrhage s/p Narcan by EMT, pt did not improve poison control was contacted regarding recommendations, will follow up recommendations intubated to protect airway, was given succhinycholine; currently on no sedation and still unresponsive CT Head showed no acute intracranial abnormalities UDS +opiated and benzos will order acetaminophen level LP done to rule out meningitis follow up CSF cultures will keep on empiric coverage for bacterial/viral meningitis until culture results neurology consulted, recs appreciated CV: hypotensive in ED s/p 500cc bolus by EMT and 500cc in ED currently on 2L NS bolus currently not on pressors maintain MAP>65 cont to monitor Pulm: Intubated in ED for airway protection (CXR confirmed location) on Vent: PRVC, PEEP 5, RR 14, VT 500, FiO2 100 Maintain O2 sat>90% VBG showed primary respiratory acidosis with secondary metabolic acidosis ABG on vent showed primary metabolic acidosis appropriately compensated by respiratory alkalosis follow up AM ABG GI: NPO Continue with Protonix 40mg IVP daily Transaminitis likely due to shock liver vs hepatitis will order hepatitis panel to rule out infectious causes of transaminitis will order ammonia level to rule out hepatic encephalopathy cont to monitor LFTs : Levy catheter placed in ED monitor strict I/O Renal: currently in MASOOD likely 2/2 hypoperfusion will continue hydration will monitor strict I/O maintain euvolemia. Continue to monitor. ID: febrile, leukocytosis, lactate 3.1 CODE SEPSIS called blood and urine cultures sent started on Vancomycin, Rocephin and Acyclovir for empiric coverage for meningitis pending culture results on airborne precautions until meningitis ruled out continue hydration will order procalcitonin will do code sepsis 6hr follow up bundle HIV and RPR ordered to rule out infectious causes of AMS ID consulted, recs appreciated Endo: thyroid panel sent No history of diabetes Maintain euglycemia Heme: Hgb and Plts stable. Cont to monitor. Psych: unresponsive DVT ppx - SCDs GI ppx - Protonix 40mg IVP daily Lines: 2 peripheral lines (L and R AC) Intubated with vent settings as above Levy catheter in Patient was seen, examined and discussed with attending, Dr. Zeina Lloyd PGY1 - Date & Time Date: 05/24/17 Time: 01:24 <Washington Pastrana MD - Last Filed: 05/28/17 09:06> Results - Vital Signs Recent Vital Signs: Last Vital Signs Temp 98.2 F 05/27/17 12:00 Pulse 56 L 05/27/17 12:00 Resp 18 05/27/17 12:00 BP 137/88 05/27/17 12:00 Pulse Ox 95 05/27/17 06:00 - Labs Result Diagrams: 05/27/17 07:04 05/27/17 07:04 Labs: Laboratory Results - last 24 hr 05/24/17 20:40 Ur Strep pneumoniae Ag Not detected Attending/Attestation - Attestation I have personally seen and examined this patient.: Yes I have fully participated in the care of the patient.: Yes I have reviewed all pertinent clinical information: Yes Notes (Text): -I agree with the above H&P completed by the resident physician. -Briefly, the patient will be admitted to the ICU with sepsis, UTI, AMS and opiate overdose/intoxication.
[2017-05-24 00:17] LABS: ABG MECHANICAL RATE 14; ARTERIAL BLOOD GAS HCO3 15.3 mmol/L (21-28); ATERIAL BLOOD GAS PEEP 5
[2017-05-24] MEDS ORDERED: Lidocaine 1% Inj (20ml) ONE (00:26)
[2017-05-24] MEDS ORDERED: DEXTROSE 5% IV ONE ×2 (00:30→04:30)
[2017-05-24] MEDS ORDERED: ACETYLCYSTEINE IV ONE ×2 (00:30→04:30)
[2017-05-24] MEDS ORDERED: WATER IV ONE ×2 (00:30→04:30)
[2017-05-24 01:34] LABS: FLUID TYPE SPINAL FLUID
--- NOTE | 2017-05-24 01:56 | PCM.SEPTIC ---
Sepsis Progress Note - Reassessment Type Date of Evaluation: 05/24/17 Time of Evaluation: 02:10 Reassessment Type: Non-invasive reassessment - Non Invasive Reassessment Were the most recent vital sign reviewed: Yes Vital Sign (Latest): Temp Pulse Resp BP Pulse Ox 98.9 F 70 20 113/77 100 05/24/17 01:00 05/24/17 01:00 05/24/17 01:00 05/24/17 01:00 05/24/17 01:00 Cardiovascular: Yes: Regular Rate, Rhythm, JVD. No: Edema, Murmur Respiratory: Yes: Normal Breath Sounds, Other (intubated). No: Rales, Rhonchi, Wheezing Capillary Refill: Normal (Less than 2 sec) Pulses: Normal Radial, Normal Dorsalis Pedis, Normal Posterior Tibialis Skin: Warm
[2017-05-24] MEDS: Vancomycin 1gm in NS 250ml 1 GM/250 ML BAG IVPB SCH ×2 (02:00→12:57)
[2017-05-24] MEDS ORDERED: Sodium Chloride 0.9% 1,000 ML IV SCH (02:00)
[2017-05-24 02:10] LABS: CSF COMMENT COLORLESS
[2017-05-24] MEDS: Propofol 10 mg/ml 1,000 MG/100 ML VIAL IV PRN ×2 (03:00→09:40)
[2017-05-24 03:59] VITALS: BMI 31.4
[2017-05-24 06:20] LABS: HEMATOCRIT 39.5 % (36.0-48.0); MEAN CORPUSCULAR HEMOGLOBIN 26.9 pg (25.0-35.0); MEAN CORPUSCULAR HGB CONC 32.4 g/dl (31.0-37.0); MEAN PLATELET VOLUME 8.9 fl (7.0-11.0); RED CELL DISTRIBUTION WIDTH 15.5 % (11.5-14.5)
[2017-05-24 06:24] LABS: WHITE BLOOD COUNT 15.9 10^3/ul (4.5-11.0)
[2017-05-24 07:06] LABS: THYROID STIMULATING HORMONE 0.28 mIU/mL (0.46-4.68)
[2017-05-24 07:26] LABS: ALB/GLOB RATIO 1.1 (1.1-1.8); ALKALINE PHOSPHATASE 71 U/L (38-126); ALT/SGPT 280 U/L (7-56); AST/SGOT 402 U/L (14-36); BILIRUBIN,TOTAL 0.4 mg/dL (0.2-1.3); BLOOD UREA NITROGEN 19 mg/dL (7-21); CALCIUM 7.9 mg/dL (8.4-10.5); CARBON DIOXIDE 16 mmol/L (21-33); CHLORIDE 116 mmol/L (98-107); GFR AFRICAN-AMERICAN > 60; GLUCOSE,RANDOM 150 mg/dL (70-110); SODIUM 147 mmol/L (132-148); TOTAL PROTEIN 6.3 g/dL (5.8-8.3)
[2017-05-24 07:41] LABS: VENOUS BLOOD GAS BASE EXCESS -9.6 mmol/L (0.0-2.0); VENOUS BLOOD PH 7.23 (7.32-7.43)
[2017-05-24 08:06] LABS: ABG MECHANICAL RATE 14; ARTERIAL BLOOD GAS HCO3 14.3 mmol/L (21-28); ATERIAL BLOOD GAS PEEP 5
[2017-05-24 08:24] LABS: FREE T4 0.85 ng/dL (0.78-2.19)
[2017-05-24] MEDS: Morphine 2 mg/ml ISec IVP PRN (08:46)
--- NOTE | 2017-05-24 09:18 | CARD ---
APPROVED REPORT EKG Measurement Heart [id number] <Conclusion> Normal sinus rhythm Normal ECG
[2017-05-24] MEDS: cefTRIAXone 2 GM IN NS 2 GM/100 ML BAG IVPB SCH (09:41)
--- NOTE | 2017-05-24 09:51 | RAD ---
HISTORY: od COMPARISON: Comparison made with chest radiograph dated 04/27/2013 FINDINGS: In situ ETT, tip of which lies approximately 4.705 cm above darius. . NGT is present, the tip of which has not been included on this film though distal aspect does lie below EG junction. LUNGS: No active pulmonary disease. PLEURA: No significant pleural effusion identified, no pneumothorax apparent. CARDIOVASCULAR: Normal. OSSEOUS STRUCTURES: No significant abnormalities. VISUALIZED UPPER ABDOMEN: Normal. OTHER FINDINGS: None. IMPRESSION: ETT and NGT as above. No acute infiltrate.
[2017-05-24] MEDS ORDERED: cefTRIAXone 2 GM IN NS 2 GM/100 ML BAG IVPB SCH (10:00)
[2017-05-24] MEDS ORDERED: Cefepime IV 2 gm in NS 2 GM/100 ML BAG IVPB SCH (10:00)
[2017-05-24] MEDS ORDERED: Dexmedetomidine HCl 4mcg/ml 400 MCG/100 ML BOTTLE IV PRN (10:45)
[2017-05-24] MEDS: Sodium Bicarbonate 8.4% 150 MEQ in Dextrose 5% In Water 1,000 ML IV SCH ×2 (10:48→18:27)
--- NOTE | 2017-05-24 11:03 | CT ---
PROCEDURE: CT scan abdomen pelvis dated 05/24/2017 HISTORY: Lactic acidosis. Overdose. Sepsis. COMPARISON: Comparison made with CT scan abdomen pelvis dated 06/21/2012. Note that examination is limited by motion artifact. TECHNIQUE: Contiguous axial images of the abdomen and pelvis. Oral contrast was administered. No IV contrast given. Coronal and Sagittal reformats generated. Radiation dose: Total exam DLP = 1492.2 mGy-cm. This CT exam was performed using one or more of the following dose reduction techniques: Automated exposure control, adjustment of the mA and/or kV according to patient size, and/or use of iterative reconstruction technique. FINDINGS: LOWER THORAX: Right lower lobe of consolidation with patchy infiltrate changes seen in the right middle lobe region. Minor left basilar atelectasis. No evidence of basilar pneumothorax. In situ NGT. Heart size within range of normal. No significant pericardial effusion. LIVER: Liver is upper limits of normal/ borderline enlarged measuring just over 18 cm in CC dimension. No obvious hepatic mass collection or calcification. GALLBLADDER AND BILE DUCTS: Gallbladder has been surgically resected with metallic surgical clips once again seen in the gallbladder fossa. PANCREAS: Pancreas is poorly delineated due to motion artifact however pancreas appears atrophic and fatty replaced. No obvious pancreatic mass or collection so far as can be seen. SPLEEN: Spleen exhibits normal size and attenuation pattern without mass collection or calcification. ADRENALS: No adrenal lesions. KIDNEYS AND URETERS: Kidneys demonstrate relatively symmetric size. No evidence of nephrolithiasis or hydronephrosis BLADDER: Urinary bladder is collapsed about an in situ unclamped Holloway catheter. Evaluation of the urinary bladder is therefore limited. Bladder wall thickening likely due to collapse. Small bubble of air within the urinary bladder (well possibly extrinsic to the Holloway catheter) likely due to instrumentation. . A large bowel REPRODUCTIVE: The uterus is not visualized and presumably has been resected clinical correlation recommended APPENDIX: The appendix is not seen with any certainty on this exam however no radiographic/CT evidence of inflammatory changes right lower quadrant of the abdomen. BOWEL: Evaluation of the bowel is limited due to the lack of oral contrast material and motion artifact. . The stomach is incompletely visualized. In situ NGT is present. . . Visualized loops of small bowel exhibit normal contour and caliber. No evidence of acute mechanical small bowel obstruction. Evaluation of the colon is also limited. PERITONEUM: No evidence of gross free intraperitoneal air. No obvious free or loculated fluid collections. . LYMPH NODES: Unremarkable. No enlarged lymph nodes. VASCULATURE: Unremarkable. No aortic aneurysm. BONES: Mild chronic appearing anterior stature loss of the T8 segment. Bilateral spondylolysis with approximately grade 1 spondylolisthesis L5-S1 level with degenerative spondylosis at this level. . Mild multilevel degenerative spondylosis seen involving the remaining lumbar and lower thoracic spine OTHER FINDINGS: None. IMPRESSION: Limited study as above. Moderately large area of right lower lobe consolidation. Minor left basilar atelectasis. Borderline hepatomegaly. Status post cholecystectomy. See above discussion for additional details and findings.
[2017-05-24 12:30] LABS: ARTERIAL BLOOD GAS HCO3 20.4 mmol/L (21-28); ARTERIAL BLOOD GAS PH 7.44 (7.35-7.45); ATERIAL BLOOD GAS PEEP 5
[2017-05-24] MEDS: MethylPREDNISolone 40 mg Vial IVP SCH ×2 (12:42→21:58)
--- NOTE | 2017-05-24 13:46 | CON ---
DATE: 05/24/2017 LOCATION: The patient is seen in room 128, ICU bed 5. CHIEF COMPLAINT: The patient has a diagnosis of overdose and sepsis in the emergency room. HISTORY OF PRESENT ILLNESS: This is a 51-year-old female with past medical history of chronic pain syndrome, history of pancreatitis and was brought to the emergency room by ALS status post overdose. The patient's mother found the patient unresponsive and unconscious last night and had multiple bottles of OxyContin, Dilaudid and gabapentin. The patient is unresponsive, intubated on the ventilator and at this time unable to give any history. There has been no fevers reported. No chills reported, although the patient did have a fever in the emergency room. PAST MEDICAL HISTORY: Significant for asthma, pancreatitis, chronic pain syndrome. PAST SURGICAL HISTORY: Significant for cholecystectomy, hysterectomy and right knee replacement. ALLERGIES: THE PATIENT IS ALLERGIC TO IODINE, SHELLFISH, SULFA-TYPE ALLERGIES, NOT ENTIRELY CLEAR. MEDICATIONS: Medications at home include OxyContin, Xanax, Ambien, Dilaudid, Neurontin. PHYSICAL EXAMINATION: GENERAL: The patient is intubated, on a ventilator, unresponsive. VITAL SIGNS: With a temperature of 99, T-max is 100.7, heart rate of 75, blood pressure is 126/60, was down to 78/58 and respiratory rate of 24. The patient is saturating 100%. HEENT: Reveals ET tube in place. NECK: Supple. LUNGS: Have decreased breath sounds. HEART: Exam normal S1, S2. ABDOMEN: Soft, nontender. No organomegaly. No rebound or guarding. No masses. LABORATORY DATA: Reveals a white count of 28,100, hemoglobin of 13, platelets of 386 and 86% granulocytosis and the coagulation is noted with INR of 1.19. Chemistries reveals a BUN of 19, creatinine of 0.9. AST is 402, ALT of 280. Random glucose is 150 and carbon dioxide is 16. Urinalysis reveals unremarkable 5-10 WBCs. There is protein in the urine. Nitrates are positive, many bacteria, and the patient had a spinal tap which revealed 3 WBCs, 26 RBCs and glucose of 143. Toxicology reveals the patient to have opiate screen is positive and benzodiazepine screen is positive. The patient also had a CT scan of the head, which revealed no acute changes. The patient had a chest x-ray and results not available; however, reviewing the chest x-ray itself, unable to review the x-ray itself. HISTORY AND PHYSICAL EXAMINATION: Read by Dr. Velez is reviewed, and sepsis progress note is also reviewed. ASSESSMENT AND PLAN: A 51-year-old female with chronic back pain syndrome, pain syndrome, pancreatitis and asthma, was admitted after being found unresponsive and now with respiratory failure, intubated on a ventilator with overdose and systemic inflammatory response syndrome with no evidence of infection as far as site of infection is concerned with only 3 WBCs and spinal fluid makes the meningitis unlikely. Currently, the patient is being treated with ceftriaxone, vancomycin and acyclovir, pending initial etienne culture results, blood cultures, CSF cultures, urine cultures and initial workup results. We will continue present course pending workup results, and we will follow closely with you. HIV testing, hepatitis also has been ordered including procalcitonin. We will check on a chest x-ray and follow with you. Lamont Castillo MD
--- NOTE | 2017-05-24 13:59 | CON ---
DATE: 05/24/2017 HISTORY OF PRESENT ILLNESS: This is a 51-year-old lady with history of chronic pancreatitis and chronic abdominal pain, on Dilaudid and oxycodone, who was brought to [facility] due to unresponsiveness thought to be secondary to opiate overdose. The patient was intubated for airway protection and ICU consult was called. No fever. No chills. No sweats. No nausea. No vomiting. No diarrhea. No constipation. No HPI details available as the patient is chronically intubated. PAST MEDICAL HISTORY: The patient has history of asthma, chronic pain, pancreatitis. FAMILY HISTORY: Limited as the patient is intubated. SOCIAL HISTORY: The patient is lifelong nonsmoker, no alcohol or illicit drug abuse. ALLERGIES: IODINE ALLERGY, SHELLFISH, SULFA DRUGS. ALL ALLERGIES MANIFESTED ANGIOEDEMA. MEDICATIONS AT HOME: Xanax, Neurontin, Dilaudid, oxycodone and zolpidem. REVIEW OF SYSTEMS: Limited as the patient is chronically intubated. PHYSICAL EXAMINATION: VITAL SIGNS: Heart rate 90, blood pressure is 129/89, end-tidal CO2 varies between 30 and 40. The patient has low-grade fever 100.6. The patient is on pressor support 5/5 with FiO2 60% on setting her O2 sat 96% to 100%. ENT: Head and neck atraumatic. LUNGS: Clear to auscultation bilaterally. HEART: Regular rate and rhythm. S1 and S2 normal. ABDOMEN: Soft, nontender, and nondistended. MUSCULOSKELETAL: No C/C/E. NEUROLOGIC: The patient moves all extremities spontaneously. SKIN: Color is moist. PSYCHIATRIC: The patient is intubated and somewhat agitated. LABORATORY DATA: WBC 15.9, hemoglobin 12.8, and platelet count 245. Sodium 147, potassium 4, chloride 116, carbon dioxide 16, BUN 19, creatinine 0.9, and glucose 150. Calcium 7.9, AST 42 and ALT 80. Ammonia level less than 9. Spinal tap was done, which revealed glucose 143, which is elevated and normal protein level, it was clear and colorless. CURRENT MEDICATIONS: The patient received n-acetylcysteine in the emergency room, acyclovir, and which she has continued at present time, Haldol p.r.n. levofloxacin, cefepime, Protonix daily, ceftriaxone, bicarb drip, vancomycin. ASSESSMENT AND PLAN: This is a 51-year-old lady who presented with altered mental status most likely due to overdose. She was found to have opiate in her blood, which corresponds to her prescription medication as well as LFTs were elevated; however, acetaminophen level in the blood was low. At present time, the patient is awake, following commands. She received naloxone and n-acetylcysteine in the emergency room department. Poison control was also consulted since that time. The patient tolerated PST okay; however, somewhat agitated. The patient is on chronic opiate therapy at home for chronic pain. I will start morphine p.r.n. and give her dose of Haldol. I will also obtain CAT scan of the abdomen and pelvis as well as gallbladder ultrasound. Of note, the patient has relatively normal INR and no signs of acute kidney injury. If the patient tolerates continued breathing trial, she will be extubated. Her CSF analysis did not reveal signs of bacterial meningitis. She has normal protein level and elevated glucose level in the CSF. As the ID consult was requested prior to my shift, we will follow on ID recommendations, but it appears that most of antibiotics can be peeled off or adjusted. I will continue to target euvolemia, euglycemia, normothermia, and oxygen saturation more than 90%. We will continue with oral hygiene. Head of bed elevated at 135 degrees. Sedation vacation. We will continue with deep venous thrombosis and gastrointestinal prophylaxis. Addendum; CT abdo/pelvis revealed large area of consolidation not visible on CXR in RLL. severe CAP vs aspiration pneumonitis. Cant rule out viral (flu?) pneumonia as well. Discussed with ID--highly unlikely herpes encephalitis--> will stop acyclovir, started tamiflu, continue ceftriaxone, vanco and doxycycline. procal is pending, urine for legionella and strep ag are pending as well. If flu test comes back negative will start low dose of steroids for severe CAP. Addendum: patient tolerated SBT well, while on precedex-->extubated with subsequent weaning off precedex. comfortable on high flow 02 at 40%-->02sat 97% , alert, awake, able to protect airways, oriented, following commands ccm time 40 min Tripp Mcrae MD [facility]
[2017-05-24 18:29] LABS: INR 1.44 (0.93-1.08); PARTIAL THROMBOPLASTIN TIME 27.1 Seconds (25.1-36.5)
[2017-05-24 19:06] LABS: ALB/GLOB RATIO 1.1 (1.1-1.8); BILIRUBIN,DIRECT 0.4 mg/dL (0.0-0.4); BILIRUBIN,TOTAL 0.4 mg/dL (0.2-1.3); TOTAL PROTEIN 5.8 g/dL (5.8-8.3)
[2017-05-24 19:07] LABS: ALKALINE PHOSPHATASE 90 U/L (38-126); ALT/SGPT 255 U/L (7-56); AST/SGOT 298 U/L (14-36)
[2017-05-24 19:24] LABS: BLOOD UREA NITROGEN 12 mg/dL (7-21); GFR AFRICAN-AMERICAN > 60; GLUCOSE,RANDOM 173 mg/dL (70-110); SODIUM 143 mmol/L (132-148)
[2017-05-24 19:25] LABS: CALCIUM 8.6 mg/dL (8.4-10.5)
[2017-05-24 19:26] LABS: CARBON DIOXIDE 24 mmol/L (21-33); CHLORIDE 111 mmol/L (98-107)
[2017-05-25] MEDS: Vancomycin 1gm in NS 250ml 1 GM/250 ML BAG IVPB SCH (00:04)
[2017-05-25] MEDS: Sodium Bicarbonate 8.4% 150 MEQ in Dextrose 5% In Water 1,000 ML IV SCH (02:37)
[2017-05-25 06:19] LABS: HEMATOCRIT 32.8 % (36.0-48.0); MEAN CELL VOLUME 80.8 fl (80.0-105.0); MEAN CORPUSCULAR HEMOGLOBIN 26.4 pg (25.0-35.0); MEAN CORPUSCULAR HGB CONC 32.6 g/dl (31.0-37.0); MEAN PLATELET VOLUME 8.6 fl (7.0-11.0); RED CELL DISTRIBUTION WIDTH 15.6 % (11.5-14.5); WHITE BLOOD COUNT 11.4 10^3/ul (4.5-11.0)
[2017-05-25 06:42] LABS: ALKALINE PHOSPHATASE 90 U/L (38-126); ALT/SGPT 321 U/L (7-56); AST/SGOT 313 U/L (14-36); BILIRUBIN,TOTAL 0.4 mg/dL (0.2-1.3); BLOOD UREA NITROGEN 8 mg/dL (7-21); CALCIUM 8.5 mg/dL (8.4-10.5); CARBON DIOXIDE 33 mmol/L (21-33); CHLORIDE 109 mmol/L (98-107); GFR AFRICAN-AMERICAN > 60; GLUCOSE,RANDOM 145 mg/dL (70-110); MAGNESIUM 1.9 mg/dL (1.7-2.2); PHOSPHOROUS 2.4 mg/dL (2.5-4.5); POTASSIUM 3.1 mmol/L (3.6-5.0); SODIUM 145 mmol/L (132-148); TOTAL PROTEIN 5.6 g/dL (5.8-8.3)
[2017-05-25] MEDS ORDERED: Potassium Phosphate 15 MMOLE in Sodium Chloride 0.9% 250 ML IVPB ONE (07:36)
[2017-05-25] MEDS: metroNIDAZOLE IV 500 mg/100 ml 500 MG/100 ML BAG IVPB SCH ×3 (09:18→21:12)
[2017-05-25] MEDS: cefTRIAXone 2 GM IN NS 2 GM/100 ML BAG IVPB SCH (09:19)
[2017-05-25] MEDS: MethylPREDNISolone 40 mg Vial IVP SCH ×2 (09:23→21:12)
--- NOTE | 2017-05-25 09:51 | PN ---
DATE: 05/25/2017 LOCATION: The patient is seen earlier this morning in [facility], bed 5. SUBJECTIVE: She is extubated. She is comfortable. She is awake. She knows who she is. She is responsive. PHYSICAL EXAMINATION: VITAL SIGNS: Temperature is 99, blood pressure is 114/60, respiratory rate of 20, and heart rate of 53. HEENT: Unremarkable. NECK: Supple. LUNGS: Decreased breath sounds. HEART: Normal S1 and S2. ABDOMEN: Soft and nontender. LABORATORY EXAMINATION: Reveals white count this morning is down to 11,400, hemoglobin of 10, and platelets of 166. BUN of 8 and creatinine of 0.5. LFTs are elevated. Urinalysis is noted. The patient had procalcitonin, which is 1.07. Spinal fluid is also reviewed. Microbiology reveals the blood cultures no growth. CSF cultures are pending. MEDICATIONS: Review of medications reveals the patient to be on doxycycline, Solu-Medrol, and vancomycin. We will change the doxycycline to p.o. The patient is also on ceftriaxone. We will discontinue the IV vancomycin. ASSESSMENT AND PLAN: Blood cultures are reported to be negative. The patient is currently stable. The patient had a CAT scan of the abdomen and pelvis. Right lower lobe consolidation with patchy infiltrate changes were seen on CAT scan of the abdomen and pelvis, otherwise, no abdominal findings. We will check on final cultures results. Case was discussed with the patient's mother at length. Lamont Castillo MD
--- NOTE | 2017-05-25 10:28 | CP.CCUPN ---
<Dao Ac - Last Filed: 05/25/17 11:41> CCU Subjective - Physician Review Subjective (Free Text): Critical care progress note - Madi Ac PGY2 Patient seen and examined this morning. No acute overnight events or new complaints were reported. On examination this morning, she had some episodes of diarrhea for CDiff testing was sent. Currently saturating > 90% on 2LNC. Awake and alert on examination. CCU Objective - Vital Signs / Intake & Output Vital Signs (Last 4 hours): Vital Signs Temp Pulse Resp Pulse Ox 05/25/17 06:42 99.9 F H 57 L 99 05/25/17 06:41 99.9 F H 61 99 05/25/17 06:40 99.9 F H 61 99 05/25/17 06:37 99.9 F H 52 L 99 05/25/17 06:36 99.9 F H 53 L 98 05/25/17 06:32 99.9 F H 66 96 05/25/17 06:31 99.9 F H 70 97 05/25/17 06:30 99.9 F H 69 24 98 05/25/17 06:28 99.9 F H 71 97 05/25/17 06:27 99.9 F H 60 98 05/25/17 06:22 100.0 F H 74 97 05/25/17 06:20 100.0 F H 70 25 H 98 Intake and Output (Last 8hrs): Intake & Output 05/24/17 05/25/17 05/25/17 22:59 06:59 14:59 Intake Total 2645 2410 Output Total 1500 2700 Balance 1145 -290 Intake: IV 2645 2410 .9NS 250 Acetadote 750 Antibiotic 550 Bicarb 1050 1650 Left Wrist 760 Precedex 20 Propofol 25 Output: Gastric Amount 100 Stomach 100 Urine 1400 2700 Urethral ([place]) 1400 2700 Other: # Bowel Movements 1 - Physical Exam Head: Positive for: Atraumatic, Normocephalic Pupils: Positive for: PERRL Extroacular Muscles: Positive for: EOMI Mouth: Positive for: Moist Mucous Membranes Respiratory/Chest: Positive for: Clear to Auscultation. Negative for: Respiratory Distress, Accessory Muscle Use Cardiovascular: Positive for: Regular Rate and Rhythm, Normal S1, S2. Negative for: Murmurs Abdomen: Positive for: Normal Bowel Sounds. Negative for: Tenderness, Distention, Peritoneal Signs Upper Extremity: Positive for: Normal Inspection. Negative for: Cyanosis, Edema Lower Extremity: Positive for: Normal Inspection. Negative for: Edema Neurological: Positive for: CN II-XII Intact Skin: Positive for: Warm, Dry, Normal Color. Negative for: Rashes Psychiatric: Negative for: Alert, Oriented x 3 - Medications Active Medications: Active Medications Generic Name Dose Route Start Last Admin Trade Name Freq PRN Reason Stop Dose Admin Doxycycline Hyclate 100 mg 05/25/17 10:00 05/25/17 09:24 Doryx PO 06/01/17 10:01 100 mg Q12 JOSEY Administration Protocol Haloperidol Lactate 2 mg 05/24/17 08:37 05/24/17 22:06 Haldol IVP 2 mg Q4H PRN Administration Agitation Protocol Ceftriaxone Sodium 2 gm in 100 mls @ 100 mls/hr 05/24/17 10:00 05/25/17 09:19 Rocephin 2 Gm Ivpb IVPB 100 mls/hr DAILY JOSEY Administration Protocol Potassium Phosphate 15 mmole/ 255 mls @ 42.5 mls/hr 05/25/17 07:36 05/25/17 09:19 Sodium Chloride IVPB 05/25/17 13:35 42.5 mls/hr ONCE ONE Administration Metronidazole 500 mg in 100 mls @ 100 mls/hr 05/25/17 08:15 05/25/17 09:18 Flagyl IVPB 100 mls/hr Q8 JOSEY Administration Protocol Lactated Ringer's 1,000 mls @ 150 mls/hr 05/25/17 10:00 Lactated Ringer's IV .[id number] JOSEY Methylprednisolone 20 mg 05/24/17 12:30 05/25/17 09:23 Solu-Medrol IVP 20 mg Q12 JOSEY Administration Morphine Sulfate 2 mg 05/24/17 08:33 05/24/17 08:46 Morphine IVP 2 mg Q4H PRN Administration Pain moderate Oseltamivir Phosphate 75 mg 05/24/17 18:00 05/25/17 09:24 Tamiflu Cap PO 05/29/17 12:26 75 mg BID JOSEY Administration Protocol Pantoprazole Sodium 40 mg 05/24/17 10:00 05/25/17 09:23 Protonix Inj IVP 40 mg DAILY JOSEY Administration - Patient Studies Lab Studies: Microbiology Studies 05/24/17 07:48 MRSA Culture (Admit) - Final Nose MRSA NOT DETECTED 05/24/17 00:49 Gram Stain - Final Cerebral Spinal Fluid CSF Culture - Preliminary NO GROWTH AFTER 24 HOURS Lab Studies 05/25/17 05/25/17 05/24/17 Range/Units 05:45 05:45 18:05 WBC 11.4 H D (4.5-11.0) 10^3/ul RBC 4.06 (3.5-6.1) 10^6/uL Hgb 10.7 L D (12.0-16.0) g/dL Hct 32.8 L (36.0-48.0) % MCV 80.8 (80.0-105.0) fl MCH 26.4 (25.0-35.0) pg MCHC 32.6 (31.0-37.0) g/dl RDW 15.6 H (11.5-14.5) % Plt Count 166 (120.0-450.0) 10^3/uL MPV 8.6 (7.0-11.0) fl PT 15.8 H (9.4-12.5) SECONDS INR 1.44 H (0.93-1.08) APTT 27.1 (25.1-36.5) Seconds pCO2 (35-45) mm/Hg pO2 (80-100) mm/Hg HCO3 (21-28) mmol/L ABG pH (7.35-7.45) ABG Total CO2 (22-28) mmol.L ABG O2 Saturation (95-98) % ABG Base Excess (-2.0-3.0) mmol/L ABG Potassium (3.6-5.2) mmol/L Sodium 145 (132-148) mmol/L Chloride 109 H (98-107) mmol/L Glucose (65-105) mg/dl Lactate (0.7-2.1) mmol/L FiO2 % PEEP Pressure Support Potassium 3.1 L (3.6-5.0) mmol/L Carbon Dioxide 33 (21-33) mmol/L Anion Gap 6 L (10-20) BUN 8 (7-21) mg/dL Creatinine 0.5 L (0.7-1.2) mg/dl Est GFR ( Amer) > 60 Est GFR (Non-Af Amer) > 60 Random Glucose 145 H (70-110) mg/dL Calcium 8.5 (8.4-10.5) mg/dL Phosphorus 2.4 L (2.5-4.5) mg/dL Magnesium 1.9 (1.7-2.2) mg/dL Total Bilirubin 0.4 (0.2-1.3) mg/dL Direct Bilirubin (0.0-0.4) mg/dL AST 313 H (14-36) U/L ALT 321 H (7-56) U/L Alkaline Phosphatase 90 (38-126) U/L Total Creatine Kinase (35-230) U/L CK-MB (CK-2) (0.0-3.6) ng/mL CK-MB (CK-2) % (2.5-3.0) % Total Protein 5.6 L (5.8-8.3) g/dL Albumin 2.9 L (3.0-4.8) g/dL Globulin 2.8 gm/dL Albumin/Globulin Ratio 1.0 L (1.1-1.8) Arterial Blood Potassium (3.6-5.2) mmol/L CSF Cryptococcus Ag (NEGATIVE) RPR (NONREACTIVE) Hepatitis A IgM Ab (NEGATIVE) Hep Bs Antigen (NEGATIVE) Hep B Core IgM Ab (NEGATIVE) Hepatitis C Antibody (NEGATIVE) Influenza Typ A,B (EIA) (NEGATIVE) 05/24/17 05/24/17 05/24/17 Range/Units 18:05 12:32 12:25 WBC (4.5-11.0) 10^3/ul RBC (3.5-6.1) 10^6/uL Hgb (12.0-16.0) g/dL Hct (36.0-48.0) % MCV (80.0-105.0) fl MCH (25.0-35.0) pg MCHC (31.0-37.0) g/dl RDW (11.5-14.5) % Plt Count (120.0-450.0) 10^3/uL MPV (7.0-11.0) fl PT (9.4-12.5) SECONDS INR (0.93-1.08) APTT (25.1-36.5) Seconds pCO2 30 L (35-45) mm/Hg pO2 100.0 (80-100) mm/Hg HCO3 20.4 L (21-28) mmol/L ABG pH 7.44 (7.35-7.45) ABG Total CO2 21.3 L (22-28) mmol.L ABG O2 Saturation 98.5 H (95-98) % ABG Base Excess -2.7 L (-2.0-3.0) mmol/L ABG Potassium 2.9 L (3.6-5.2) mmol/L Sodium 143 143.0 (132-148) mmol/L Chloride 111 H 113.0 H (98-107) mmol/L Glucose 167 H (65-105) mg/dl Lactate 1.2 (0.7-2.1) mmol/L FiO2 60.0 % PEEP 5 Pressure Support 6 Potassium 3.0 L (3.6-5.0) mmol/L Carbon Dioxide 24 (21-33) mmol/L Anion Gap 11 (10-20) BUN 12 (7-21) mg/dL Creatinine 0.6 L (0.7-1.2) mg/dl Est GFR ( Amer) > 60 Est GFR (Non-Af Amer) > 60 Random Glucose 173 H (70-110) mg/dL Calcium 8.6 (8.4-10.5) mg/dL Phosphorus (2.5-4.5) mg/dL Magnesium (1.7-2.2) mg/dL Total Bilirubin 0.4 (0.2-1.3) mg/dL Direct Bilirubin 0.4 (0.0-0.4) mg/dL AST 298 H D (14-36) U/L ALT 255 H (7-56) U/L Alkaline Phosphatase 90 (38-126) U/L Total Creatine Kinase 7659 H (35-230) U/L CK-MB (CK-2) 32.5 H (0.0-3.6) ng/mL CK-MB (CK-2) % 0.4 L (2.5-3.0) % Total Protein 5.8 (5.8-8.3) g/dL Albumin 3.0 (3.0-4.8) g/dL Globulin 2.8 gm/dL Albumin/Globulin Ratio 1.1 (1.1-1.8) Arterial Blood Potassium 2.9 L (3.6-5.2) mmol/L CSF Cryptococcus Ag (NEGATIVE) RPR (NONREACTIVE) Hepatitis A IgM Ab (NEGATIVE) Hep Bs Antigen (NEGATIVE) Hep B Core IgM Ab (NEGATIVE) Hepatitis C Antibody (NEGATIVE) Influenza Typ A,B (EIA) Negative for flu a/b (NEGATIVE) 05/24/17 05/24/17 05/24/17 Range/Units 05:45 05:45 01:20 WBC (4.5-11.0) 10^3/ul RBC (3.5-6.1) 10^6/uL Hgb (12.0-16.0) g/dL Hct (36.0-48.0) % MCV (80.0-105.0) fl MCH (25.0-35.0) pg MCHC (31.0-37.0) g/dl RDW (11.5-14.5) % Plt Count (120.0-450.0) 10^3/uL MPV (7.0-11.0) fl PT (9.4-12.5) SECONDS INR (0.93-1.08) APTT (25.1-36.5) Seconds pCO2 (35-45) mm/Hg pO2 (80-100) mm/Hg HCO3 (21-28) mmol/L ABG pH (7.35-7.45) ABG Total CO2 (22-28) mmol.L ABG O2 Saturation (95-98) % ABG Base Excess (-2.0-3.0) mmol/L ABG Potassium (3.6-5.2) mmol/L Sodium (132-148) mmol/L Chloride (98-107) mmol/L Glucose (65-105) mg/dl Lactate (0.7-2.1) mmol/L FiO2 % PEEP Pressure Support Potassium (3.6-5.0) mmol/L Carbon Dioxide (21-33) mmol/L Anion Gap (10-20) BUN (7-21) mg/dL Creatinine (0.7-1.2) mg/dl Est GFR ( Amer) Est GFR (Non-Af Amer) Random Glucose (70-110) mg/dL Calcium (8.4-10.5) mg/dL Phosphorus (2.5-4.5) mg/dL Magnesium (1.7-2.2) mg/dL Total Bilirubin (0.2-1.3) mg/dL Direct Bilirubin (0.0-0.4) mg/dL AST (14-36) U/L ALT (7-56) U/L Alkaline Phosphatase (38-126) U/L Total Creatine Kinase (35-230) U/L CK-MB (CK-2) (0.0-3.6) ng/mL CK-MB (CK-2) % (2.5-3.0) % Total Protein (5.8-8.3) g/dL Albumin (3.0-4.8) g/dL Globulin gm/dL Albumin/Globulin Ratio (1.1-1.8) Arterial Blood Potassium (3.6-5.2) mmol/L CSF Cryptococcus Ag Negative (NEGATIVE) RPR Nonreactive (NONREACTIVE) Hepatitis A IgM Ab Negative (NEGATIVE) Hep Bs Antigen Negative (NEGATIVE) Hep B Core IgM Ab Negative (NEGATIVE) Hepatitis C Antibody Negative (NEGATIVE) Influenza Typ A,B (EIA) (NEGATIVE) Laboratory Results - last 24 hr 05/24/17 05/24/17 05/24/17 01:20 05:45 05:45 WBC RBC Hgb Hct MCV MCH MCHC RDW Plt Count MPV PT INR APTT pCO2 pO2 HCO3 ABG pH ABG Total CO2 ABG O2 Saturation ABG Base Excess ABG Potassium Sodium Chloride Glucose Lactate FiO2 PEEP Pressure Support Potassium Carbon Dioxide Anion Gap BUN Creatinine Est GFR ( Amer) Est GFR (Non-Af Amer) Random Glucose Calcium Phosphorus Magnesium Total Bilirubin Direct Bilirubin AST ALT Alkaline Phosphatase Total Creatine Kinase CK-MB (CK-2) CK-MB (CK-2) % Total Protein Albumin Globulin Albumin/Globulin Ratio Arterial Blood Potassium CSF Cryptococcus Ag Negative RPR Nonreactive Hepatitis A IgM Ab Negative Hep Bs Antigen Negative Hep B Core IgM Ab Negative Hepatitis C Antibody Negative Influenza Typ A,B (EIA) 05/24/17 05/24/17 05/24/17 12:25 12:32 18:05 WBC RBC Hgb Hct MCV MCH MCHC RDW Plt Count MPV PT INR APTT pCO2 30 L pO2 100.0 HCO3 20.4 L ABG pH 7.44 ABG Total CO2 21.3 L ABG O2 Saturation 98.5 H ABG Base Excess -2.7 L ABG Potassium 2.9 L Sodium 143.0 143 Chloride 113.0 H 111 H Glucose 167 H Lactate 1.2 FiO2 60.0 PEEP 5 Pressure Support 6 Potassium 3.0 L Carbon Dioxide 24 Anion Gap 11 BUN 12 Creatinine 0.6 L Est GFR ( Amer) > 60 Est GFR (Non-Af Amer) > 60 Random Glucose 173 H Calcium 8.6 Phosphorus Magnesium Total Bilirubin 0.4 Direct Bilirubin 0.4 AST 298 H D ALT 255 H Alkaline Phosphatase 90 Total Creatine Kinase 7659 H CK-MB (CK-2) 32.5 H CK-MB (CK-2) % 0.4 L Total Protein 5.8 Albumin 3.0 Globulin 2.8 Albumin/Globulin Ratio 1.1 Arterial Blood Potassium 2.9 L CSF Cryptococcus Ag RPR Hepatitis A IgM Ab Hep Bs Antigen Hep B Core IgM Ab Hepatitis C Antibody Influenza Typ A,B (EIA) Negative for flu a/b 05/24/17 05/25/17 05/25/17 18:05 05:45 05:45 WBC 11.4 H D RBC 4.06 Hgb 10.7 L D Hct 32.8 L MCV 80.8 MCH 26.4 MCHC 32.6 RDW 15.6 H Plt Count 166 MPV 8.6 PT 15.8 H INR 1.44 H APTT 27.1 pCO2 pO2 HCO3 ABG pH ABG Total CO2 ABG O2 Saturation ABG Base Excess ABG Potassium Sodium 145 Chloride 109 H Glucose Lactate FiO2 PEEP Pressure Support Potassium 3.1 L Carbon Dioxide 33 Anion Gap 6 L BUN 8 Creatinine 0.5 L Est GFR ( Amer) > 60 Est GFR (Non-Af Amer) > 60 Random Glucose 145 H Calcium 8.5 Phosphorus 2.4 L Magnesium 1.9 Total Bilirubin 0.4 Direct Bilirubin AST 313 H ALT 321 H Alkaline Phosphatase 90 Total Creatine Kinase CK-MB (CK-2) CK-MB (CK-2) % Total Protein 5.6 L Albumin 2.9 L Globulin 2.8 Albumin/Globulin Ratio 1.0 L Arterial Blood Potassium CSF Cryptococcus Ag RPR Hepatitis A IgM Ab Hep Bs Antigen Hep B Core IgM Ab Hepatitis C Antibody Influenza Typ A,B (EIA) Fingerstick Blood Sugar Results: 94 Critical Care Progress Note - Nutrition Nutrition: Nutrition Category Date Time Status NPO Diet [DIET] Diets 05/24/17 Breakfast Ordered Assessment/Plan - Assessment and Plan (Free Text) Plan: 51yo female with history of chronic pancreatitis presented to [facility] with altered mental status secondary to opiate overdose Neuro: -Awake, alert, oriented; Responding to questions appropriately -Head CT reviewed; no acute intracranial abnormalities -On 1:1 for drug overdose -Continue with Haldol 2mg q4h PRN for agitation -Maintain normothermia -Neurology consulted - Dr. Gibson Cardio: -EKG reviewed; revealed normal sinus rhythm at 77bpm with no acute ST-T wave changes -Echocardiogram has been order and is pending -Hemodynamically stable at this time; maintain MAP > 65 Pulm: -CT abd/pelvis revealed a moderate-large area of consolidation in the RLL concerning for CAP vs aspiration pneumonitis -Maintain SaO2 > 92%; presently saturating 99% on nasal cannula -Continue with Rocephin 2gm daily and doxycyline 100mg q12h -Step Pneumo and legionella pending GI: -Cdiff testing sent due to diarrhea -Hepatic and GB ultrasound pending -Protonix for GI prophylaxis -GI consulted for transaminitis - Dr. Neal Endo: -Maintain euglycemia with blood sugar between 140-180 Nephro: -Monitor and correct electrolyte abnormalities as indicated -Repeat CPK ordered -Started on lactated ringers @ 150cc/hr for rhabdomyolysis ID: -afebrile, leukocytosis of 11.4 from 15.9 yesterday -Strep Pneumo and legionella pending -Procalcitonin elevated, repeat pending -Continue with abx as indicated above -ID consulted - Dr. Castillo Patient seen and case discussed/reviewed with attending physician, Dr. Mcrae - Date & Time Date: 05/25/17 Time: 10:21 <Tripp Mcrae - Last Filed: 05/25/17 16:51> CCU Objective - Vital Signs / Intake & Output Vital Signs (Last 4 hours): Vital Signs Pulse 05/25/17 14:00 52 L Intake and Output (Last 8hrs): Intake & Output 05/25/17 05/25/17 05/25/17 06:59 14:59 22:59 Intake Total 2410 Output Total 2700 Balance -290 Weight 213 lb Intake: IV 2410 Bicarb 1650 Left Wrist 760 Output: Urine 2700 Urethral ([place]) 2700 Other: # Bowel Movements 1 - Medications Active Medications: Active Medications Generic Name Dose Route Start Last Admin Trade Name Freq PRN Reason Stop Dose Admin Albuterol/Ipratropium 3 ml 05/25/17 16:00 Duoneb 3 Mg/0.5 Mg (3 Ml) Ud IH [id number] PRN Wheezing Benzonatate 100 mg 05/25/17 18:00 Tessalon Perles PO TID JOSEY Doxycycline Hyclate 100 mg 05/25/17 10:00 05/25/17 09:24 Doryx PO 06/01/17 10:01 100 mg Q12 JOSEY Administration Protocol Haloperidol Lactate 2 mg 05/24/17 08:37 05/24/17 22:06 Haldol IVP 2 mg Q4H PRN Administration Agitation Protocol Metronidazole 500 mg in 100 mls @ 100 mls/hr 05/25/17 08:15 05/25/17 16:26 Flagyl IVPB 100 mls/hr Q8 JOSEY Administration Protocol Lactated Ringer's 1,000 mls @ 150 mls/hr 05/25/17 10:00 05/25/17 11:24 Lactated Ringer's IV 150 mls/hr .[id number] JOSEY Administration Ceftriaxone Sodium 1 gm in 100 mls @ 100 mls/hr 05/25/17 10:30 05/25/17 11:21 Rocephin 1 Gram Ivpb IVPB Not Given DAILY JOSEY Protocol Methylprednisolone 20 mg 05/24/17 12:30 05/25/17 09:23 Solu-Medrol IVP 05/29/17 12:30 20 mg Q12 JOSEY Administration Morphine Sulfate 2 mg 05/24/17 08:33 05/24/17 08:46 Morphine IVP 2 mg Q4H PRN Administration Pain moderate Oseltamivir Phosphate 75 mg 05/24/17 18:00 05/25/17 09:24 Tamiflu Cap PO 05/29/17 12:26 75 mg BID JOSEY Administration Protocol Pantoprazole Sodium 40 mg 05/24/17 10:00 05/25/17 09:23 Protonix Inj IVP 40 mg DAILY JOSEY Administration - Patient Studies Lab Studies: Microbiology Studies 05/25/17 09:58 C. difficile Antigen & Toxin A,B (M - Final Stool 05/24/17 07:48 MRSA Culture (Admit) - Final Nose MRSA NOT DETECTED 05/24/17 00:49 Gram Stain - Final Cerebral Spinal Fluid CSF Culture - Preliminary NO GROWTH AFTER 24 HOURS Lab Studies 05/25/17 05/25/17 05/25/17 Range/Units 06:00 05:45 05:45 WBC 11.4 H D (4.5-11.0) 10^3/ul RBC 4.06 (3.5-6.1) 10^6/uL Hgb 10.7 L D (12.0-16.0) g/dL Hct 32.8 L (36.0-48.0) % MCV 80.8 (80.0-105.0) fl MCH 26.4 (25.0-35.0) pg MCHC 32.6 (31.0-37.0) g/dl RDW 15.6 H (11.5-14.5) % Plt Count 166 (120.0-450.0) 10^3/uL MPV 8.6 (7.0-11.0) fl PT (9.4-12.5) SECONDS INR (0.93-1.08) APTT (25.1-36.5) Seconds Sodium 145 (132-148) mmol/L Potassium 3.1 L (3.6-5.0) mmol/L Chloride 109 H (98-107) mmol/L Carbon Dioxide 33 (21-33) mmol/L Anion Gap 6 L (10-20) BUN 8 (7-21) mg/dL Creatinine 0.5 L (0.7-1.2) mg/dl Est GFR ( Amer) > 60 Est GFR (Non-Af Amer) > 60 Random Glucose 145 H (70-110) mg/dL Calcium 8.5 (8.4-10.5) mg/dL Phosphorus 2.4 L (2.5-4.5) mg/dL Magnesium 1.9 (1.7-2.2) mg/dL Total Bilirubin 0.4 (0.2-1.3) mg/dL Direct Bilirubin (0.0-0.4) mg/dL AST 313 H (14-36) U/L ALT 321 H (7-56) U/L Alkaline Phosphatase 90 (38-126) U/L Total Creatine Kinase 6367 H (35-230) U/L CK-MB (CK-2) 13.4 H (0.0-3.6) ng/mL CK-MB (CK-2) % 0.2 L (2.5-3.0) % Total Protein 5.6 L (5.8-8.3) g/dL Albumin 2.9 L (3.0-4.8) g/dL Globulin 2.8 gm/dL Albumin/Globulin Ratio 1.0 L (1.1-1.8) Procalcitonin (0.19-0.49) NG/ML HIV 1&2 Ag/Ab, 4th Gen (Nonreactive) Ur L.pneumophila Ag (NEGATIVE) 05/24/17 05/24/17 05/24/17 Range/Units 20:40 19:00 18:05 WBC (4.5-11.0) 10^3/ul RBC (3.5-6.1) 10^6/uL Hgb (12.0-16.0) g/dL Hct (36.0-48.0) % MCV (80.0-105.0) fl MCH (25.0-35.0) pg MCHC (31.0-37.0) g/dl RDW (11.5-14.5) % Plt Count (120.0-450.0) 10^3/uL MPV (7.0-11.0) fl PT 15.8 H (9.4-12.5) SECONDS INR 1.44 H (0.93-1.08) APTT 27.1 (25.1-36.5) Seconds Sodium (132-148) mmol/L Potassium (3.6-5.0) mmol/L Chloride (98-107) mmol/L Carbon Dioxide (21-33) mmol/L Anion Gap (10-20) BUN (7-21) mg/dL Creatinine (0.7-1.2) mg/dl Est GFR ( Amer) Est GFR (Non-Af Amer) Random Glucose (70-110) mg/dL Calcium (8.4-10.5) mg/dL Phosphorus (2.5-4.5) mg/dL Magnesium (1.7-2.2) mg/dL Total Bilirubin (0.2-1.3) mg/dL Direct Bilirubin (0.0-0.4) mg/dL AST (14-36) U/L ALT (7-56) U/L Alkaline Phosphatase (38-126) U/L Total Creatine Kinase (35-230) U/L CK-MB (CK-2) (0.0-3.6) ng/mL CK-MB (CK-2) % (2.5-3.0) % Total Protein (5.8-8.3) g/dL Albumin (3.0-4.8) g/dL Globulin gm/dL Albumin/Globulin Ratio (1.1-1.8) Procalcitonin 0.67 H (0.19-0.49) NG/ML HIV 1&2 Ag/Ab, 4th Gen (Nonreactive) Ur L.pneumophila Ag Negative (NEGATIVE) 05/24/17 05/24/17 Range/Units 18:05 05:45 WBC (4.5-11.0) 10^3/ul RBC (3.5-6.1) 10^6/uL Hgb (12.0-16.0) g/dL Hct (36.0-48.0) % MCV (80.0-105.0) fl MCH (25.0-35.0) pg MCHC (31.0-37.0) g/dl RDW (11.5-14.5) % Plt Count (120.0-450.0) 10^3/uL MPV (7.0-11.0) fl PT (9.4-12.5) SECONDS INR (0.93-1.08) APTT (25.1-36.5) Seconds Sodium 143 (132-148) mmol/L Potassium 3.0 L (3.6-5.0) mmol/L Chloride 111 H (98-107) mmol/L Carbon Dioxide 24 (21-33) mmol/L Anion Gap 11 (10-20) BUN 12 (7-21) mg/dL Creatinine 0.6 L (0.7-1.2) mg/dl Est GFR ( Amer) > 60 Est GFR (Non-Af Amer) > 60 Random Glucose 173 H (70-110) mg/dL Calcium 8.6 (8.4-10.5) mg/dL Phosphorus (2.5-4.5) mg/dL Magnesium (1.7-2.2) mg/dL Total Bilirubin 0.4 (0.2-1.3) mg/dL Direct Bilirubin 0.4 (0.0-0.4) mg/dL AST 298 H D (14-36) U/L ALT 255 H (7-56) U/L Alkaline Phosphatase 90 (38-126) U/L Total Creatine Kinase 7659 H (35-230) U/L CK-MB (CK-2) 32.5 H (0.0-3.6) ng/mL CK-MB (CK-2) % 0.4 L (2.5-3.0) % Total Protein 5.8 (5.8-8.3) g/dL Albumin 3.0 (3.0-4.8) g/dL Globulin 2.8 gm/dL Albumin/Globulin Ratio 1.1 (1.1-1.8) Procalcitonin (0.19-0.49) NG/ML HIV 1&2 Ag/Ab, 4th Gen Nonreactive (Nonreactive) Ur L.pneumophila Ag (NEGATIVE) Laboratory Results - last 24 hr 05/24/17 05/24/17 05/24/17 05:45 18:05 18:05 WBC RBC Hgb Hct MCV MCH MCHC RDW Plt Count MPV PT 15.8 H INR 1.44 H APTT 27.1 Sodium 143 Potassium 3.0 L Chloride 111 H Carbon Dioxide 24 Anion Gap 11 BUN 12 Creatinine 0.6 L Est GFR ( Amer) > 60 Est GFR (Non-Af Amer) > 60 Random Glucose 173 H Calcium 8.6 Phosphorus Magnesium Total Bilirubin 0.4 Direct Bilirubin 0.4 AST 298 H D ALT 255 H Alkaline Phosphatase 90 Total Creatine Kinase 7659 H CK-MB (CK-2) 32.5 H CK-MB (CK-2) % 0.4 L Total Protein 5.8 Albumin 3.0 Globulin 2.8 Albumin/Globulin Ratio 1.1 Procalcitonin HIV 1&2 Ag/Ab, 4th Gen Nonreactive Ur L.pneumophila Ag 05/24/17 05/24/17 05/25/17 19:00 20:40 05:45 WBC 11.4 H D RBC 4.06 Hgb 10.7 L D Hct 32.8 L MCV 80.8 MCH 26.4 MCHC 32.6 RDW 15.6 H Plt Count 166 MPV 8.6 PT INR APTT Sodium Potassium Chloride Carbon Dioxide Anion Gap BUN Creatinine Est GFR ( Amer) Est GFR (Non-Af Amer) Random Glucose Calcium Phosphorus Magnesium Total Bilirubin Direct Bilirubin AST ALT Alkaline Phosphatase Total Creatine Kinase CK-MB (CK-2) CK-MB (CK-2) % Total Protein Albumin Globulin Albumin/Globulin Ratio Procalcitonin 0.67 H HIV 1&2 Ag/Ab, 4th Gen Ur L.pneumophila Ag Negative 05/25/17 05/25/17 05:45 06:00 WBC RBC Hgb Hct MCV MCH MCHC RDW Plt Count MPV PT INR APTT Sodium 145 Potassium 3.1 L Chloride 109 H Carbon Dioxide 33 Anion Gap 6 L BUN 8 Creatinine 0.5 L Est GFR ( Amer) > 60 Est GFR (Non-Af Amer) > 60 Random Glucose 145 H Calcium 8.5 Phosphorus 2.4 L Magnesium 1.9 Total Bilirubin 0.4 Direct Bilirubin AST 313 H ALT 321 H Alkaline Phosphatase 90 Total Creatine Kinase 6367 H CK-MB (CK-2) 13.4 H CK-MB (CK-2) % 0.2 L Total Protein 5.6 L Albumin 2.9 L Globulin 2.8 Albumin/Globulin Ratio 1.0 L Procalcitonin HIV 1&2 Ag/Ab, 4th Gen Ur L.pneumophila Ag Critical Care Progress Note - Nutrition Nutrition: Nutrition Category Date Time Status NPO Diet [DIET] Diets 05/24/17 Breakfast Ordered Attending/Attestation - Attestation I have personally seen and examined this patient.: Yes I have fully participated in the care of the patient.: Yes I have reviewed all pertinent clinical information: Yes Notes (Text): 05/25/17 16:49 51 yo female admitted with opiate overdose and severe CAP vs aspiration pneumonitis complicated by respiratory failure and required intubation. Now successfully extubated yesterday, hemodynamically and respiratory dover stable. On abx, and low dose steroids for severe CAP. ok to downgrade to telemetry ccm time 40 min
--- NOTE | 2017-05-25 10:46 | CP.PCM.PN ---
<Sajan Hilton - Last Filed: 05/25/17 10:42> Subjective - Date & Time of Evaluation Date of Evaluation: 05/25/17 Time of Evaluation: 08:00 - Subjective Subjective: Hospitalist medicine note: Pt seen and examined at bedside. No acute events overnight. Pt is extubated and on high flow oxygen. More alert. Denies any depression or suicidal ideation. No complaints at this time. Denies any f/c, sob, cp, n/v/d. Objective - Vital Signs/Intake and Output Vital Signs (last 24 hours): Temp Pulse Resp BP Pulse Ox 99.9 F H 57 L 24 114/67 99 05/25/17 06:42 05/25/17 06:42 05/25/17 06:30 05/25/17 04:57 05/25/17 06:42 Intake and Output: 05/25/17 05/25/17 06:59 18:59 Intake Total 2410 Output Total 2700 Balance -290 - Medications Medications: Current Medications Doxycycline Hyclate (Doryx) 100 mg PO Q12 JOSEY PRN Reason: Protocol Stop: 06/01/17 10:01 Last Admin: 05/25/17 09:24 Dose: 100 mg Haloperidol Lactate (Haldol) 2 mg IVP Q4H PRN; Protocol PRN Reason: Agitation Last Admin: 05/24/17 22:06 Dose: 2 mg Potassium Phosphate 15 mmole/ (Sodium Chloride) 255 mls @ 42.5 mls/hr IVPB ONCE ONE Stop: 05/25/17 13:35 Last Admin: 05/25/17 09:19 Dose: 42.5 mls/hr Metronidazole (Flagyl) 500 mg in 100 mls @ 100 mls/hr IVPB Q8 JOSEY PRN Reason: Protocol Last Admin: 05/25/17 09:18 Dose: 100 mls/hr Lactated Ringer's (Lactated Ringer's) 1,000 mls @ 150 mls/hr IV .Q6H40M JOSEY Ceftriaxone Sodium (Rocephin 1 Gram Ivpb) 1 gm in 100 mls @ 100 mls/hr IVPB DAILY JOSEY PRN Reason: Protocol Methylprednisolone (Solu-Medrol) 20 mg IVP Q12 [facility] Last Admin: 05/25/17 09:23 Dose: 20 mg Morphine Sulfate (Morphine) 2 mg IVP Q4H PRN PRN Reason: Pain moderate Last Admin: 05/24/17 08:46 Dose: 2 mg Oseltamivir Phosphate (Tamiflu Cap) 75 mg PO BID JOSEY PRN Reason: Protocol Stop: 05/29/17 12:26 Last Admin: 05/25/17 09:24 Dose: 75 mg Pantoprazole Sodium (Protonix Inj) 40 mg IVP DAILY [facility] Last Admin: 05/25/17 09:23 Dose: 40 mg - Labs Labs: 05/25/17 05:45 05/25/17 05:45 PT 15.8 SECONDS (9.4-12.5) H 05/24/17 18:05 INR 1.44 (0.93-1.08) H 05/24/17 18:05 APTT 27.1 Seconds (25.1-36.5) 05/24/17 18:05 - Constitutional Appears: No Acute Distress - Head Exam Head Exam: ATRAUMATIC, NORMOCEPHALIC - Eye Exam Eye Exam: EOMI, PERRL Pupil Exam: NORMAL ACCOMODATION - ENT Exam ENT Exam: Mucous Membranes Moist - Respiratory Exam Respiratory Exam: Clear to Ausculation Bilateral. absent: Rales, Rhonchi, Wheezes - Cardiovascular Exam Cardiovascular Exam: REGULAR RHYTHM, +S1, +S2 - GI/Abdominal Exam GI & Abdominal Exam: Soft. absent: Tenderness - Extremities Exam Extremities Exam: absent: Calf Tenderness, Pedal Edema - Neurological Exam Neurological Exam: Alert, Awake, Oriented x3 - Psychiatric Exam Psychiatric exam: absent: Depressed - Skin Skin Exam: Dry, Intact Assessment and Plan - Assessment and Plan (Free Text) Assessment: 51yo F PMH chronic pancreatitis, migraines and asthma who presented with sepsis and AMS likely 2/2 substance abuse vs pneumonia. Was intubated for airway protection and currently extubated on high flow O2. LP done and ruled out meningitis. MASOOD now resolved. Pt currently has elevated LFTs and Rhabdomyolysis with CPK of 7659. 1. AMS - Now resolved. - LP was done and ruled out meningitis - Head CT was negative - Ammonia <9 - Consulted psych for recs - Haloperidol PRN for agitations 2. RLL pneumonia - Wbc 11.4 with low grade fevers - Abd CT shows RLL consolidations - F/u ID consult and recs - Cont Vanc , Rocephin (dec dose 2mg --> 1mg since meningitis ruled out) and Doxy - Cont Tamilfu - F/u septic work up - Procal 1.07 - Blood cultures, Influenza, RPR, 3. Transaminitis - Possibley 2/2 sepsis vs autoimmune vs Rhabdo - GI consulted for recs - Hepatitis panel negative - Denies any hx of prolong Tylenol use - Will cont to monitor 4. Rhabdomylosis - Cont LR @ 150 - Will monitor 5. MASOOD - resolved - will cont to monitor 6. Hypokalemia - K of 3.1 - Repleted with Kphos - cont to monitor 7. Hypophosphatemia - P of 2.4 - Repleted with kphos 8. GI/DVT ppx Pt was seen and plan was discussed in detail with Dr Feror. <Margaret Ferro - Last Filed: 05/25/17 11:21> Objective - Vital Signs/Intake and Output Vital Signs (last 24 hours): Temp Pulse Resp BP Pulse Ox 99.9 F H 57 L 24 114/67 99 05/25/17 06:42 05/25/17 06:42 05/25/17 06:30 05/25/17 04:57 05/25/17 06:42 Intake and Output: 05/25/17 05/25/17 06:59 18:59 Intake Total 2410 Output Total 2700 Balance -290 - Medications Medications: Current Medications Doxycycline Hyclate (Doryx) 100 mg PO Q12 JOSEY PRN Reason: Protocol Stop: 06/01/17 10:01 Last Admin: 05/25/17 09:24 Dose: 100 mg Haloperidol Lactate (Haldol) 2 mg IVP Q4H PRN; Protocol PRN Reason: Agitation Last Admin: 05/24/17 22:06 Dose: 2 mg Potassium Phosphate 15 mmole/ (Sodium Chloride) 255 mls @ 42.5 mls/hr IVPB ONCE ONE Stop: 05/25/17 13:35 Last Admin: 05/25/17 09:19 Dose: 42.5 mls/hr Metronidazole (Flagyl) 500 mg in 100 mls @ 100 mls/hr IVPB Q8 JOSEY PRN Reason: Protocol Last Admin: 05/25/17 09:18 Dose: 100 mls/hr Lactated Ringer's (Lactated Ringer's) 1,000 mls @ 150 mls/hr IV .Q6H40M [facility] Ceftriaxone Sodium (Rocephin 1 Gram Ivpb) 1 gm in 100 mls @ 100 mls/hr IVPB DAILY [facility] PRN Reason: Protocol Methylprednisolone (Solu-Medrol) 20 mg IVP Q12 [facility] Last Admin: 05/25/17 09:23 Dose: 20 mg Morphine Sulfate (Morphine) 2 mg IVP Q4H PRN PRN Reason: Pain moderate Last Admin: 05/24/17 08:46 Dose: 2 mg Oseltamivir Phosphate (Tamiflu Cap) 75 mg PO BID JOSEY PRN Reason: Protocol Stop: 05/29/17 12:26 Last Admin: 05/25/17 09:24 Dose: 75 mg Pantoprazole Sodium (Protonix Inj) 40 mg IVP DAILY [facility] Last Admin: 05/25/17 09:23 Dose: 40 mg - Labs Labs: 05/25/17 05:45 05/25/17 05:45 PT 15.8 SECONDS (9.4-12.5) H 05/24/17 18:05 INR 1.44 (0.93-1.08) H 05/24/17 18:05 APTT 27.1 Seconds (25.1-36.5) 05/24/17 18:05 Attending/Attestation - Attestation I have personally seen and examined this patient.: Yes I have fully participated in the care of the patient.: Yes I have reviewed all pertinent clinical information, including history, physical exam and plan: Yes Notes (Text): 05/25/17 11:13 51 year old female with past medical history of chronic pancreatitis and asthma who presented with altered mental status secondary to suspected overdose vs pneumonia. She was intubated for airway protected but extubated yesterday. Currently on high flow oxygen. Her mental status has improved. CT head was negative. Utox was positive for opiates and benzodiazepines. She was counselled on risks of continued substance abuse. Psychiatry evaluation is requested. She also has RLL pneumonia on chest xray currently on rocephin, doxycycline and tamiflu. Her leukocytosis has improved. She was also found to have elevated LFTs. Hepatitis panel and tylenol level was negative. GI evaluation is requested. Will follow up on ultrasound abdomen and continue to trend her LFTs. She initially had MASOOD which resolved. Will replete and repeat lytes. Margaret Ferro MD Hospitalist.
[2017-05-25] MEDS: cefTRIAXone 1 gm 1 GM/100 ML BAG IVPB SCH (11:21)
[2017-05-25] MEDS: Lactated Ringer's 1,000 ML IV SCH ×2 (11:24→18:25)
--- NOTE | 2017-05-25 12:40 | US ---
HISTORY: LFTs are elevated COMPARISON: None. TECHNIQUE: Sonographic evaluation of the right upper quadrant of the abdomen. FINDINGS: LIVER: Measures 19.5 x 18.1 cm in length. Patent portal vein. Portal venous flow: Hepatopetal. Unremarkeable echogenicity of the liver parenchyma. No mass. No intrahepatic bile duct dilatation. GALLBLADDER: Status post cholecystectomy. No abnormality is seen in the gallbladder fossa. COMMON BILE DUCT: Measures 5.1 mm. No stones. No dilatation. PANCREAS: Unremarkable as visualized. No mass. No ductal dilatation. RIGHT KIDNEY: Measures 4.6 x 11.0 cm in length. Normal echogenicity. No calculus, mass, or hydronephrosis. AORTA: No aneurysmal dilatation. IVC: Unremarkable. OTHER FINDINGS: None . IMPRESSION: Hepatomegaly without focal or diffuse abnormalities.
--- NOTE | 2017-05-25 15:22 | CON ---
DATE: HISTORY OF PRESENT ILLNESS: This is a 51-year-old female with past medical history of chronic pain, pancreatitis, and the patient has been admitted to the hospital with overdose and the patient was found to be unresponsive and had overdose of OxyContin, Dilaudid, and gabapentin. The patient was intubated and extubated. Feels better. PAST MEDICAL HISTORY: Asthma, pancreatitis, and chronic pain syndrome. PAST SURGICAL HISTORY: Cholecystectomy, hysterectomy, and knee replacement. ALLERGIES: IODINE, SHELLFISH, AND SULFA. PHYSICAL EXAMINATION: HEENT: Normocephalic and atraumatic. NECK: Supple. NEUROLOGIC: Alert, awake, and oriented. Hard of hearing. Cranial nerves II-XII are tested. Pupils are reactive. EOM intact. Visual field full. No facial asymmetry. Tongue midline. Motor examination, the patient moves all the extremities spontaneously. Deep tendon reflexes 1+. Both plantars are downgoing. Sensory appears intact. Cerebellar, gait deferred. IMPRESSION AND PLAN: A 51-year-old white female with chronic back pain and pancreatitis under the treatment of Dr. Rivas. The patient came with unresponsiveness with overdose and respiratory failure, was intubated, and now got better, extubated. The patient will be much better and continue present management. We will follow up. Bj Gibson MD
[2017-05-25] MEDS ORDERED: Albuterol-Ipratrop 3 mg / 0.5 (3 ml) UD IH PRN (16:00)
--- NOTE | 2017-05-25 19:32 | CON ---
DATE: HISTORY OF PRESENT ILLNESS: The patient is 51-year-old female with not known previous psychiatric history. The patient has a lot of medical issues including chronic pain due to chronic pancreatitis. The patient was found by mother unresponsive with pills next to her. The patient was admitted to the ICU unit. The patient was intubated and successfully extubated. The patient was found to have pneumonia, leukocytosis, and sepsis. Psych consult was called in order to find out if the patient had intentional overdose on medication. The patient was seen and examined today in ICU. The patient was alert. The patient is very hard of hearing. The patient adamantly denied that she wanted to end up her life. The patient reported that she was feeling weak and not good. The patient said that she took medications as well as Xanax that is why most likely she passed out. The patient adamantly denied feeling depressed. Denied feeling hopeless or helpless. The patient wanted to have Thanksgiving dinner with her family, but the patient passed out and was found by her mother. Mother is next to the patient, obtained collateral information, the patient gave permission. As per mother, the patient was not depressed. Denied history of mental illness. The patient's mother said that the patient was not feeling well and her impression is that the patient took her pain medication on her own, on top of that, she took Xanax. The patient never verbalized thoughts of killing herself or others, was functioning at her baseline, had some family trip over the weekend and was not depressed or psychotic. This literary writer reviewed vital signs. Vital signs seemed to be stable. The patient had fever at 99.9 at the morning time, at afternoon, it was 98.5, pulse is stable. MEDICATIONS: Medications are reviewed. The patient is on ceftriaxone. The patient had Haldol for agitated behavior. This literary writer would recommend to avoid to give IV push from the Haldol. The patient also is on Solu-Medrol, Flagyl, morphine, Tamiflu, and Protonix. LABORATORY DATA: Labs reviewed. WBCs are trending down from 28.1 to 11.4 hemoglobin and hematocrit are 10.7 and 32.8. Chemistry reviewed, prolactin level was 67. AST and ALT 330 and 321. Toxicology was positive only for benzodiazepines as well as opioids, but the patient was prescribed benzodiazepines and opioids. MENTAL STATUS EXAMINATION: The patient was alert and pleasant. The patient is very hard of hearing. Speech was loud, slow. Intermittent eye contact. Mood described "I feel better, want to go home tomorrow." Affect was constricted. Thought process seems to be concrete. Thought content: The patient denied visual, auditory or tactile hallucinations. Denied paranoid ideation. The patient denied thoughts of harming herself or others. Denied intent or plan. Insight and judgment are fair. Impulses are well controlled. IMPRESSION: Altered mental status could be related to sepsis and accidental overdose on medication, but now it is improving. PLAN: Continue current management. The patient deemed not to be danger to self or others. Collaterals from the patient's mother obtained. The patient never verbalized thoughts of killing herself prior to coming to the hospital. The patient never been depressed and did not have history of suicidal attempt. As per the patient's mother, the patient is closer to her baseline, but still not well yet. Case was discussed with the nursing staff as well as the patient's mother. The patient was seen. This literary writer will sign off from this case. The patient deemed not to be in any imminent danger to self or others. Should you have any questions give me a call back. Try to void IV push Haldol if need to. Give Seroquel at the nighttime or p.o. Geodon. Thank you very much for letting me To participate in care of your patient. Shauna Larose MD
[2017-05-25] MEDS: Morphine 2 mg/ml ISec IVP PRN (22:26)
--- NOTE | 2017-05-26 05:04 | CP.PCM.PN ---
<En Jeffers - Last Filed: 05/26/17 10:03> Subjective - Date & Time of Evaluation Date of Evaluation: 05/26/17 Time of Evaluation: 07:50 - Subjective Subjective: Subjective: Patient seen and examined at bedside. Resting comfortably in bed. No acute overnight events. Patient states she would like to go home. Offers no new complaints at this time. Denies fever, chills, chest pain, shortness of breath, abdominal pain, nausea, vomiting, constipation, and urinary symptoms. 12-point review of systems negative except as indicated in the HPI Physical Examination: - Constitutional Appears: No Acute Distress - Head Exam Head Exam: ATRAUMATIC, NORMOCEPHALIC - Eye Exam Eye Exam: EOMI, PERRL Pupil Exam: NORMAL ACCOMODATION - ENT Exam ENT Exam: Mucous Membranes Moist - Respiratory Exam Respiratory Exam: Clear to Ausculation Bilateral. absent: Rales, Rhonchi, Wheezes - Cardiovascular Exam Cardiovascular Exam: REGULAR RHYTHM, +S1, +S2 - GI/Abdominal Exam GI & Abdominal Exam: Soft. absent: Tenderness - Extremities Exam Extremities Exam: absent: Calf Tenderness, Pedal Edema - Neurological Exam Neurological Exam: Patient is awake, alert, responds to verbal stimuli, answers questions appropriately, follows commands, and moves extremities past midline - Psychiatric Exam Psychiatric exam: absent: Depressed - Skin Skin Exam: Dry, Intact Assessment and Plan: Patient is a 51 year old female with a PMHx of chronic pancreatitis, migraines and asthma who presented with sepsis and AMS likely 2/2 substance abuse vs pneumonia. She was intubated for airway protection and is currently extubated on high flow O2. LP done and ruled out meningitis. MASOOD now resolved. Pt currently has elevated LFTs and Rhabdomyolysis with CPK of 7659. AMS - resolved - LP was done and ruled out meningitis - Head CT was negative - Consulted psych for recs- no acute intervention required, patient deemed not to be threat to herself or others - Haloperidol PRN for agitations RLL pneumonia - Wbc 12 - Abd CT shows RLL consolidations - F/u ID consult and recs - Continue ceftriaxone and doxycycline - Blood cultures- no growth after 48 hour Dirrhea - c. diff negative - imodium - probiotic - continue rectal tube Elevated Liver Enzymes - GI consulted - appreciate recs- no acute intervention, autoimmune panel pending - Hepatitis panel negative - Will cont to monitor Rhabdomylosis - Cont LR @ 150 - Will monitor MASOOD - resolved - will cont to monitor Hypokalemia - Repleted and mag appreciated - cont to monitor Hypophosphatemia - repleted GI/DVT ppx - protonix - subq heparin Patient seen, case discussed with, and plan approved by attending physician, Dr. Ferro. Objective - Vital Signs/Intake and Output Vital Signs (last 24 hours): Temp Pulse Resp BP Pulse Ox 98.3 F 60 36 H 128/67 98 05/25/17 20:00 05/25/17 20:10 05/25/17 20:00 05/25/17 19:01 05/25/17 20:10 Intake and Output: 05/25/17 05/26/17 18:59 06:59 Intake Total 2400 Output Total 1500 Balance 900 - Medications Medications: Current Medications Albuterol/Ipratropium (Duoneb 3 Mg/0.5 Mg (3 Ml) Ud) 3 ml IH [id number] PRN PRN Reason: Wheezing Benzonatate (Tessalon Perles) 100 mg PO TID [facility] Last Admin: 05/25/17 17:25 Dose: 100 mg Doxycycline Hyclate (Doryx) 100 mg PO Q12 JOSEY PRN Reason: Protocol Stop: 06/01/17 10:01 Last Admin: 05/25/17 21:12 Dose: 100 mg Haloperidol Lactate (Haldol) 2 mg IVP Q4H PRN; Protocol PRN Reason: Agitation Last Admin: 05/24/17 22:06 Dose: 2 mg Metronidazole (Flagyl) 500 mg in 100 mls @ 100 mls/hr IVPB Q8 JOSEY PRN Reason: Protocol Last Admin: 05/25/17 21:12 Dose: 100 mls/hr Lactated Ringer's (Lactated Ringer's) 1,000 mls @ 150 mls/hr IV .Q6H40M [facility] Last Admin: 05/26/17 00:00 Dose: 150 mls/hr Ceftriaxone Sodium (Rocephin 1 Gram Ivpb) 1 gm in 100 mls @ 100 mls/hr IVPB DAILY JOSEY PRN Reason: Protocol Last Admin: 05/25/17 11:21 Dose: Not Given Methylprednisolone (Solu-Medrol) 20 mg IVP Q12 JOSEY Stop: 05/29/17 12:30 Last Admin: 05/25/17 21:12 Dose: 20 mg Morphine Sulfate (Morphine) 2 mg IVP Q4H PRN PRN Reason: Pain moderate Last Admin: 05/25/17 22:26 Dose: 2 mg Oseltamivir Phosphate (Tamiflu Cap) 75 mg PO BID JOSEY PRN Reason: Protocol Stop: 05/29/17 12:26 Last Admin: 05/25/17 17:28 Dose: 75 mg Pantoprazole Sodium (Protonix Inj) 40 mg IVP DAILY JOSEY Last Admin: 05/25/17 09:23 Dose: 40 mg - Labs Labs: 05/25/17 05:45 05/25/17 05:45 PT 15.8 SECONDS (9.4-12.5) H 05/24/17 18:05 INR 1.44 (0.93-1.08) H 05/24/17 18:05 APTT 27.1 Seconds (25.1-36.5) 05/24/17 18:05 <Margaret Ferro - Last Filed: 05/26/17 12:43> Objective - Vital Signs/Intake and Output Vital Signs (last 24 hours): Temp Pulse Resp BP Pulse Ox 98.3 F 48 L 23 173/88 H 98 05/25/17 20:00 05/26/17 11:50 05/26/17 11:50 05/26/17 10:33 05/26/17 11:50 Intake and Output: 05/26/17 05/26/17 06:59 18:59 Intake Total 5000 Output Total 3800 Balance 1200 - Medications Medications: Current Medications Albuterol/Ipratropium (Duoneb 3 Mg/0.5 Mg (3 Ml) Ud) 3 ml IH [id number] PRN PRN Reason: Wheezing Last Admin: 05/26/17 05:58 Dose: 3 ml Benzonatate (Tessalon Perles) 100 mg PO TID JOSEY Last Admin: 05/26/17 10:25 Dose: 100 mg Doxycycline Hyclate (Doryx) 100 mg PO Q12 JOSEY PRN Reason: Protocol Stop: 06/01/17 10:01 Last Admin: 05/26/17 10:24 Dose: 100 mg Haloperidol Lactate (Haldol) 2 mg IVP Q4H PRN; Protocol PRN Reason: Agitation Last Admin: 05/24/17 22:06 Dose: 2 mg Lactated Ringer's (Lactated Ringer's) 1,000 mls @ 150 mls/hr IV .Q6H40M [facility] Last Admin: 05/26/17 08:15 Dose: 150 mls/hr Ceftriaxone Sodium (Rocephin 1 Gram Ivpb) 1 gm in 100 mls @ 100 mls/hr IVPB DAILY JOSEY PRN Reason: Protocol Last Admin: 05/26/17 10:24 Dose: 100 mls/hr Ibuprofen (Motrin Tab) 400 mg PO Q6H PRN PRN Reason: Headache Lactobacillus Acidophilus (Bacid Acidophilus) 1 cap PO BID [facility] Last Admin: 05/26/17 10:35 Dose: 1 cap Loperamide HCl (Imodium) 2 mg PO QID PRN PRN Reason: Diarrhea Last Admin: 05/26/17 10:35 Dose: 2 mg Morphine Sulfate (Morphine) 2 mg IVP Q4H PRN PRN Reason: Pain moderate Last Admin: 05/25/17 22:26 Dose: 2 mg Pantoprazole Sodium (Protonix Inj) 40 mg IVP DAILY [facility] Last Admin: 05/26/17 10:26 Dose: 40 mg - Labs Labs: 05/26/17 05:30 05/26/17 05:30 PT 15.8 SECONDS (9.4-12.5) H 05/24/17 18:05 INR 1.44 (0.93-1.08) H 05/24/17 18:05 APTT 27.1 Seconds (25.1-36.5) 05/24/17 18:05 Attending/Attestation - Attestation I have personally seen and examined this patient.: Yes I have fully participated in the care of the patient.: Yes I have reviewed all pertinent clinical information, including history, physical exam and plan: Yes Notes (Text): 05/26/17 12:39 51 year old female with past medical history of chronic pancreatitis and asthma who presented with altered mental status secondary to suspected overdose vs pneumonia. She was intubated initially for airway protected but extubated since. Her mental status has improved to baseline. Psychiatry evaluation was appreciated. CT head was negative. Utox was positive for opiates and benzodiazepines. She was counselled on risks of continued substance abuse. She also has RLL pneumonia on chest xray currently on rocephin and doxycycline. Her leukocytosis has overall improved. Will discontinue her steroids. She was also found to have elevated LFTs. Hepatitis panel and tylenol level was negative. GI evaluation was ordered and autoimmune workup has been ordered. Her utrasound of the abdomen was reviewed. Will continue to trend her LFTs. She initially had MASOOD which resolved. She is on iv fluids for rhabdo. CPK level is improving. Will replete and repeat lytes. She is started on imodium for diarrhea. Stool for cdif was negative. Out of bed to chair is ordered. Will discontinue levy. Margaret Ferro MD Hospitalist.
[2017-05-26] MEDS: metroNIDAZOLE IV 500 mg/100 ml 500 MG/100 ML BAG IVPB SCH (06:17)
[2017-05-26 06:25] LABS: MEAN CELL VOLUME 83.1 fl (80.0-105.0); MEAN CORPUSCULAR HEMOGLOBIN 26.7 pg (25.0-35.0); MEAN CORPUSCULAR HGB CONC 32.1 g/dl (31.0-37.0); MEAN PLATELET VOLUME 9.1 fl (7.0-11.0); RED CELL DISTRIBUTION WIDTH 15.6 % (11.5-14.5)
[2017-05-26 07:01] LABS: ALB/GLOB RATIO 1.2 (1.1-1.8); ALKALINE PHOSPHATASE 88 U/L (38-126); ALT/SGPT 358 U/L (7-56); AST/SGOT 212 U/L (14-36); BILIRUBIN,TOTAL 0.6 mg/dL (0.2-1.3); BLOOD UREA NITROGEN 9 mg/dL (7-21); CALCIUM 8.8 mg/dL (8.4-10.5); CARBON DIOXIDE 28 mmol/L (21-33); CHLORIDE 110 mmol/L (98-107); GFR AFRICAN-AMERICAN > 60; GLUCOSE,RANDOM 121 mg/dL (70-110); MAGNESIUM 1.8 mg/dL (1.7-2.2); PHOSPHOROUS 3.7 mg/dL (2.5-4.5); POTASSIUM 3.2 mmol/L (3.6-5.0); SODIUM 144 mmol/L (132-148); TOTAL PROTEIN 5.9 g/dL (5.8-8.3)
--- NOTE | 2017-05-26 07:57 | CP.PCM.CON ---
History of Present Illness - History of Present Illness History of Present Illness: Asked by hospitalist team for a GI consultation on this patient. 51 year old female with history of chronic pancreatitis, asthma, migraine headaches who initially presented to hospital due to altered mental status which was presumed secondary to opiate overdose. GI called for evaluation of elevated LFTs. Her hospital course was complicated by respiratory failure due to pneumonia s/p intubation and extubation. She is currently seen resting in bed comfortably. She denies abdominal pain, nausea, vomiting, fever/chills, weight loss, change in bowel habits, jaundice, pruritis, or prior history of liver disease. She denies ETOH use or excessive tylenol intake. She had an EGD 5 years ago and a colonoscopy 4 years ago without significant findings. Social history: smokes 1/4 PPD cigarettes, no ETOH use Family history: reviewed, patient denies history of colon cancer Review of Systems - Review of Systems Review of Systems: - All other comprehensive 12 point review of systems performed, negative - Cardiovascular Cardiovascular: absent: Acrocyanosis, Chest Pain, Chest Pain at Rest, Chest Pain with Activity, Claudication, Diaphoresis, Dyspnea, Dyspnea on Exertion, Edema, Irregular Heart Rhythm, Pain Radiating to Arm/Neck/Jaw, Leg Edema, Leg Ulcers, Lightheadedness, Orthopnea, Palpitations, Paroxysmal Nocturnal Dyspnea, Pedal Edema, Radiating Pain, Rapid Heart Rate, Slow Heart Rate, Syncope, Other - Respiratory Respiratory: absent: Cough, Dyspnea, Hemoptysis, Dyspnea on Exertion, Wheezing, Snoring, Stridor, Pain on Inspiration, Chest Congestion, Excessive Mucous Production, Change in Mucous Color, Pain with Coughing, Other - Gastrointestinal Gastrointestinal: absent: Abdominal Pain, Belching, Bloating, Change in Bowel Habits, Change in Stool Character, Coffee Ground Emesis, Constipation, Cramping , Diarrhea, Dyspepsia, Dysphagia, Early Satiety, Excessive Flatus, Fecal Incontinence, Heartburn, Hematemesis, Hematochezia, Loose Stools, Melena, Nausea , Odynophagia, Temesmus, Vomiting, Other - Musculoskeletal Musculoskeletal: absent: Abnormal Gait, Arthralgias, Atrophy, Back Pain, Deformity, Joint Swelling, Limited Range of Motion, Loss of Height, Muscle Cramps, Muscle Weakness, Myalgias, Neck Pain, Numbness, Radiating Pain into Limb , Stiffness, Tingling, Other - Neurological Neurological: absent: Abnormal Gait, Abnormal Hearing, Abnormal Movements, Abnormal Speech, Behavioral Changes, Burning Sensations, Confusion, Convulsions , Disequilibrium, Dizziness, Numbness, Focal Weakness, Frequent Falls, Headaches , Lack of Coordination, Loss of Vision, Memory Loss, Paresthesias, Radicular Pain, Restless Legs, Sensory Deficit, Syncope, Tingling, Tremor, Vertigo, Weakness, Other Visual Disturbances, Other Past Patient History - Infectious Disease Hx of Infectious Diseases: None - Tetanus Immunizations Tetanus Immunization: Unknown - Past Medical History & Family History Past Medical History?: Yes - Past Social History Smoking Status: Current Some Days Smoker - CARDIAC Hx Cardiac Disorders: No - PULMONARY Hx Respiratory Disorders: Yes Hx Asthma: Yes - NEUROLOGICAL Hx Neurological Disorder: Yes Hx Migraine: Yes - HEENT Hx HEENT Problems: No - RENAL Hx Chronic Kidney Disease: No - ENDOCRINE/METABOLIC Hx Endocrine Disorders: No - HEMATOLOGICAL/ONCOLOGICAL Hx Blood Disorders: No - INTEGUMENTARY Hx Dermatological Problems: No - MUSCULOSKELETAL/RHEUMATOLOGICAL Hx Musculoskeletal Disorders: Yes Hx Falls: Yes - GASTROINTESTINAL Hx Gastrointestinal Disorders: (pancreatic sphincter) Hx Gall Bladder Disease: Yes (w/complications affecting pancreas) Hx Pancreatitis: Yes - GENITOURINARY/GYNECOLOGICAL Hx Genitourinary Disorders: No - PSYCHIATRIC Hx Psychophysiologic Disorder: No Hx Substance Use: No - SURGICAL HISTORY Hx Cholecystectomy: Yes Hx Hysterectomy: Yes (SHYLA/BSO) Hx Orthopedic Surgery: Yes (R knee surgery) Other/Comment: artificial knee cap right lower extremity - ANESTHESIA Hx Anesthesia: Yes Hx Anesthesia Reactions: No Hx Malignant Hyperthermia: No Meds Allergies/Adverse Reactions: Allergies Allergy/AdvReac Type Severity Reaction Status Date / Time iodine Allergy ANGIOEDEMA Verified 01/09/16 11:37 shellfish derived Allergy ANAPHYLAXIS Verified 01/09/16 11:37 Sulfa (Sulfonamide Allergy ANGIOEDEMA Verified 01/09/16 11:37 Antibiotics) - Medications Medications: Current Medications Albuterol/Ipratropium (Duoneb 3 Mg/0.5 Mg (3 Ml) Ud) 3 ml IH [id number] PRN PRN Reason: Wheezing Last Admin: 05/26/17 05:58 Dose: 3 ml Benzonatate (Tessalon Perles) 100 mg PO TID JOSEY Last Admin: 05/25/17 17:25 Dose: 100 mg Doxycycline Hyclate (Doryx) 100 mg PO Q12 JOSEY PRN Reason: Protocol Stop: 06/01/17 10:01 Last Admin: 05/25/17 21:12 Dose: 100 mg Haloperidol Lactate (Haldol) 2 mg IVP Q4H PRN; Protocol PRN Reason: Agitation Last Admin: 05/24/17 22:06 Dose: 2 mg Lactated Ringer's (Lactated Ringer's) 1,000 mls @ 150 mls/hr IV .Q6H40M [facility] Last Admin: 05/26/17 00:00 Dose: 150 mls/hr Ceftriaxone Sodium (Rocephin 1 Gram Ivpb) 1 gm in 100 mls @ 100 mls/hr IVPB DAILY JOSEY PRN Reason: Protocol Last Admin: 05/25/17 11:21 Dose: Not Given Methylprednisolone (Solu-Medrol) 20 mg IVP Q12 [facility] Stop: 05/29/17 12:30 Last Admin: 05/25/17 21:12 Dose: 20 mg Morphine Sulfate (Morphine) 2 mg IVP Q4H PRN PRN Reason: Pain moderate Last Admin: 05/25/17 22:26 Dose: 2 mg Pantoprazole Sodium (Protonix Inj) 40 mg IVP DAILY [facility] Last Admin: 05/25/17 09:23 Dose: 40 mg Physical Exam - Constitutional Appears: Non-toxic, No Acute Distress - Head Exam Head Exam: NORMAL INSPECTION - Eye Exam Eye Exam: EOMI, Normal appearance - ENT Exam ENT Exam: Mucous Membranes Moist - Respiratory Exam Respiratory Exam: Clear to Auscultation Bilateral - Cardiovascular Exam Cardiovascular Exam: REGULAR RHYTHM, +S1, +S2 - GI/Abdominal Exam GI & Abdominal Exam: Normal Bowel Sounds, Soft Additional comments: non tender to palpation in four quadrants +hepatomegaly - Extremities Exam Extremities exam: Positive for: normal inspection - Neurological Exam Neurological exam: Alert, CN II-XII Intact, Oriented x3, Reflexes Normal - Psychiatric Exam Psychiatric exam: Normal Affect, Normal Mood - Skin Skin Exam: Dry, Intact, Normal Color, Warm Results - Vital Signs Recent Vital Signs: Last Vital Signs Temp 98.3 F 05/25/17 20:00 Pulse 51 L 05/26/17 06:38 Resp 28 H 05/26/17 06:38 BP 136/57 L 05/26/17 06:38 Pulse Ox 97 05/26/17 06:38 - Labs Result Diagrams: 05/26/17 05:30 05/26/17 05:30 Labs: Laboratory Results - last 24 hr 05/24/17 05/24/17 05/24/17 05:45 19:00 20:40 WBC RBC Hgb Hct MCV MCH MCHC RDW Plt Count MPV Sodium Potassium Chloride Carbon Dioxide Anion Gap BUN Creatinine Est GFR ( Amer) Est GFR (Non-Af Amer) Random Glucose Calcium Phosphorus Magnesium Total Bilirubin AST ALT Alkaline Phosphatase Total Creatine Kinase CK-MB (CK-2) CK-MB (CK-2) % Total Protein Albumin Globulin Albumin/Globulin Ratio Procalcitonin 0.67 H HIV 1&2 Ag/Ab, 4th Gen Nonreactive Ur L.pneumophila Ag Negative 05/25/17 05/25/17 05/26/17 06:00 06:00 05:30 WBC 12.0 H RBC 4.09 Hgb 10.9 L Hct 34.0 L MCV 83.1 MCH 26.7 MCHC 32.1 RDW 15.6 H Plt Count 164 MPV 9.1 Sodium Potassium Chloride Carbon Dioxide Anion Gap BUN Creatinine Est GFR ( Amer) Est GFR (Non-Af Amer) Random Glucose Calcium Phosphorus Magnesium Total Bilirubin AST ALT Alkaline Phosphatase Total Creatine Kinase 6367 H CK-MB (CK-2) 13.4 H CK-MB (CK-2) % 0.2 L Total Protein Albumin Globulin Albumin/Globulin Ratio Procalcitonin 0.81 H HIV 1&2 Ag/Ab, 4th Gen Ur L.pneumophila Ag 05/26/17 05:30 WBC RBC Hgb Hct MCV MCH MCHC RDW Plt Count MPV Sodium 144 Potassium 3.2 L Chloride 110 H Carbon Dioxide 28 Anion Gap 10 BUN 9 Creatinine 0.5 L Est GFR ( Amer) > 60 Est GFR (Non-Af Amer) > 60 Random Glucose 121 H Calcium 8.8 Phosphorus 3.7 Magnesium 1.8 Total Bilirubin 0.6 AST 212 H D ALT 358 H Alkaline Phosphatase 88 Total Creatine Kinase 4951 H CK-MB (CK-2) 4.2 H CK-MB (CK-2) % Cancelled Total Protein 5.9 Albumin 3.2 Globulin 2.8 Albumin/Globulin Ratio 1.2 Procalcitonin HIV 1&2 Ag/Ab, 4th Gen Ur L.pneumophila Ag Assessment & Plan - Assessment and Plan (Free Text) Assessment: Chronic pancreatitis AMS - resolved, s/p LP without evidence of meningitis Pneumonia Transaminitis - 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 Viral hepatitis panel negative. Abdominal US and CT imaging reviewed by me showing normal caliber CBD, s/p cholecystectomy Plan: - Low fat diet as tolerated - Continue with antibiotic therapy as per medical team - LFTs trending down, continue to monitor and avoid hepatotoxic therapies - Obtain autoimmune serologies - Will continue to monitor patient clinical course
[2017-05-26] MEDS ORDERED: Potassium Chloride 40 mEq/30 ml LIQ UD PO ONE (08:02)
[2017-05-26] MEDS: Lactated Ringer's 1,000 ML IV SCH ×6 (08:15→22:03)
--- NOTE | 2017-05-26 08:41 | PN ---
DATE: 05/26/2017 SUBJECTIVE: Albert Jovel is in the ICU 128, bed 5. She is awake and she is alert. She wants to be discharged. PHYSICAL EXAMINATION: VITAL SIGNS: Temperature is 98, blood pressure is 130/60, respiratory rate of 18, and heart rate of 50. HEENT: Examination of HEENT is unremarkable. NECK: Supple. LUNGS: Have decreased breath sounds. HEART: Exam is normal S1 and S2. GASTROINTESTINAL: Abdominal examination is soft and nontender. LABORATORY DATA: Examination reveals a white count of 12,000, hemoglobin of 10 and platelets of 164. BUN of 9 and creatinine of 0.5. The procalcitonin is 0.81. Urinalysis is noted and 5 to wbc's and influenza is negative. HIV is negative. Hepatitis profile is negative. RPR is negative. Urine for Legionella antigen is negative. Microbiology reveals a Gram-negative cassandra in the urine with urinalysis is unremarkable. DIAGNOSTIC DATA: EKG shows a QTC of 427. ASSESSMENT AND PLAN: This is a 51-year-old female with overdose with a right lower lobe consolidation patchy infiltrates and Clostridium difficile is negative, we will discontinue the Flagyl. Influenza is negative, discontinue Tamiflu. We recommend discontinue the Holloway catheter and the rectal tube and recommend discontinue the steroids. The ultrasound of gallbladder is unremarkable. The patient has had a cholecystectomy. Currently on p.o. doxycycline, may complete therapy with p.o. doxycycline 5 to -7 days. We would discontinue ceftriaxone also and Solu-Medrol. From Infectious Diseases point of view, the patient is cleared for discharge. Lamont Castillo MD
--- NOTE | 2017-05-26 09:03 | CARD ---
APPROVED REPORT EXAM: Two-dimensional and M-mode echocardiogram with Doppler and color Doppler. Other Information Quality : AverageRhythm : INDICATION UNRESPONSIVENESS/LVFX 2D DIMENSIONS Left Atrium (2D)4.0 (1.6-4.0cm)IVSd0.9 (0.7-1.1cm) LVDd4.9 (3.9-5.9cm)PWd1.1 (0.7-1.1cm) LVDs3.5 (2.5-4.0cm)FS (%) 28.2 % LVEF (%)54.0 (>50%) M-Mode DIMENSIONS Aortic Root2.80 (2.2-3.7cm)Aortic Cusp Exc.1.80 (1.5-2.0cm) Aortic Valve AoV Peak Huwwrpmq727.0cm/s Mitral Valve MV E Xttkpgbe819.0cm/sMV A Cwxxecdj25.4cm/sE/A ratio1.6 TDI Lateral E' Peak V13.50cm/sMedial E' Peak V9.65cm/sE/Lateral E'8.4 E/Medial E'11.8 Pulmonary Valve PV Peak Kogyoouw78.2cm/sPV Peak Grad.3mmHg Tricuspid Valve TR Peak Fdoitfwm416eb/sRAP [id number] Peak Gr.42mmHg [id number] LEFT VENTRICLE The left ventricle is normal size. There is normal left ventricular wall thickness. The left ventricular function is normal. The left ventricular ejection fraction is within the normal range. There is normal LV segmental wall motion. RIGHT VENTRICLE The right ventricle is normal size. ATRIA The left atrium size is normal. The right atrium size is normal. The interatrial septum is intact with no evidence for an atrial septal defect. AORTIC VALVE The aortic valve is normal in structure. There is trace aortic regurgitation. MITRAL VALVE The mitral valve is normal in structure. Mitral regurgitation is mild. TRICUSPID VALVE The tricuspid valve is normal in structure. There is mild to moderate tricuspid regurgitation. There is mild-moderate pulmonary hypertension. GREAT VESSELS The aortic root is normal in size. PERICARDIAL EFFUSION There is no pericardial effusion. <Conclusion> The left ventricle is normal size. There is normal left ventricular wall thickness. The left ventricular function is normal. Mitral regurgitation is mild. There is mild to moderate tricuspid regurgitation. There is mild-moderate pulmonary hypertension.
[2017-05-26] MEDS: cefTRIAXone 1 gm 1 GM/100 ML BAG IVPB SCH (10:24)
[2017-05-26] MEDS: MethylPREDNISolone 40 mg Vial IVP SCH (10:25)
[2017-05-26] MEDS: Lactobacillus Acidophilus 500 MU Cap PO SCH ×2 (10:35→18:36)
--- NOTE | 2017-05-27 00:14 | CP.PCM.PN ---
Subjective - Date & Time of Evaluation Date of Evaluation: 05/27/17 Time of Evaluation: 23:16 - Subjective Subjective: Agustin Lloyd PGY1 CODE STAR NOTE for Dr. Atilio Alejandro CODE STAR was called at 2316. team responded stat and pt was noted to be sitting on the bed. she states that she was using the commode and when she went to get up, her left knee buckled and she fell. she denies head trauma, pain or weakness of any kind. she was able to get up by herself and return to the bed. nurses were present and endorse that she did not strike her head. pt currently not offering any complaints. Objective - Vital Signs/Intake and Output Vital Signs (last 24 hours): Temp Pulse Resp BP Pulse Ox 98 F 68 16 162/89 H 97 05/26/17 17:38 05/26/17 17:38 05/26/17 17:38 05/26/17 17:38 05/26/17 13:08 - Medications Medications: Current Medications Albuterol/Ipratropium (Duoneb 3 Mg/0.5 Mg (3 Ml) Ud) 3 ml IH [id number] PRN PRN Reason: Wheezing Last Admin: 05/26/17 05:58 Dose: 3 ml Benzonatate (Tessalon Perles) 100 mg PO TID JOSEY Last Admin: 05/26/17 18:36 Dose: 100 mg Doxycycline Hyclate (Doryx) 100 mg PO Q12 JOSEY PRN Reason: Protocol Stop: 06/01/17 10:01 Last Admin: 05/26/17 21:00 Dose: 100 mg Haloperidol Lactate (Haldol) 2 mg IVP Q4H PRN; Protocol PRN Reason: Agitation Last Admin: 05/24/17 22:06 Dose: 2 mg Lactated Ringer's (Lactated Ringer's) 1,000 mls @ 150 mls/hr IV .Q6H40M [facility] Last Admin: 05/26/17 22:03 Dose: 150 mls/hr Ceftriaxone Sodium (Rocephin 1 Gram Ivpb) 1 gm in 100 mls @ 100 mls/hr IVPB DAILY JOSEY PRN Reason: Protocol Last Admin: 05/26/17 10:24 Dose: 100 mls/hr Ibuprofen (Motrin Tab) 400 mg PO Q6H PRN PRN Reason: Headache Last Admin: 05/26/17 12:38 Dose: 400 mg Lactobacillus Acidophilus (Bacid Acidophilus) 1 cap PO BID [facility]SEY Last Admin: 05/26/17 18:36 Dose: 1 cap Loperamide HCl (Imodium) 2 mg PO QID PRN PRN Reason: Diarrhea Last Admin: 05/26/17 10:35 Dose: 2 mg Morphine Sulfate (Morphine) 2 mg IVP Q4H PRN PRN Reason: Pain moderate Last Admin: 05/25/17 22:26 Dose: 2 mg Pantoprazole Sodium (Protonix Inj) 40 mg IVP DAILY [facility]Y Last Admin: 05/26/17 10:26 Dose: 40 mg - Labs Labs: 05/26/17 05:30 05/26/17 05:30 PT 15.8 SECONDS (9.4-12.5) H 05/24/17 18:05 INR 1.44 (0.93-1.08) H 05/24/17 18:05 APTT 27.1 Seconds (25.1-36.5) 05/24/17 18:05 - Constitutional Appears: Well, Non-toxic, No Acute Distress - Head Exam Head Exam: ATRAUMATIC, NORMAL INSPECTION, NORMOCEPHALIC - Eye Exam Eye Exam: EOMI, Normal appearance, PERRL Pupil Exam: NORMAL ACCOMODATION - ENT Exam ENT Exam: Mucous Membranes Moist - Neck Exam Neck Exam: Full ROM, Normal Inspection. absent: Tenderness - Respiratory Exam Respiratory Exam: NORMAL BREATHING PATTERN - Cardiovascular Exam Cardiovascular Exam: RRR - Extremities Exam Extremities Exam: Full ROM. absent: Joint Swelling, Tenderness Additional comments: surgical scar noted from old right knee surgery - Back Exam Back Exam: NORMAL INSPECTION. absent: tenderness, vertebral tenderness - Neurological Exam Neurological Exam: Alert, Awake, Oriented x3 Assessment and Plan - Assessment and Plan (Free Text) Assessment: 51 yo F admitted for sepsis and AMS (resolved) who had mechanical fall s/p CODE STAR. Pt offers no complaints of headache, dizziness, pain in any extremity, and has full ROM without tenderness on active/passive ROM and is neurovascularly stable. No imaging or further labs needed as patient is medically stable requiring no further workup. Patient was seen, examined and discussed with attending, Dr. Atilio Alejandro
[2017-05-27 04:52] VITALS: RESP 18; O2SAT 95
[2017-05-27] MEDS: Lactated Ringer's 1,000 ML IV SCH ×2 (06:02→15:14)
[2017-05-27 07:15] LABS: MEAN CELL VOLUME 82.7 fl (80.0-105.0); MEAN CORPUSCULAR HGB CONC 32.6 g/dl (31.0-37.0); MEAN PLATELET VOLUME 9.2 fl (7.0-11.0); RED CELL DISTRIBUTION WIDTH 15.6 % (11.5-14.5); WHITE BLOOD COUNT 11.4 10^3/ul (4.5-11.0)
[2017-05-27 07:49] LABS: ALB/GLOB RATIO 1.1 (1.1-1.8); ALKALINE PHOSPHATASE 80 U/L (38-126); ALT/SGPT 254 U/L (7-56); AST/SGOT 103 U/L (14-36); BLOOD UREA NITROGEN 7 mg/dL (7-21); CALCIUM 8.6 mg/dL (8.4-10.5); CARBON DIOXIDE 26 mmol/L (21-33); CHLORIDE 112 mmol/L (98-107); GFR AFRICAN-AMERICAN > 60; GLUCOSE,RANDOM 104 mg/dL (70-110); MAGNESIUM 1.7 mg/dL (1.7-2.2); PHOSPHOROUS 3.4 mg/dL (2.5-4.5); POTASSIUM 3.3 mmol/L (3.6-5.0); SODIUM 146 mmol/L (132-148)
--- NOTE | 2017-05-27 08:44 | CP.PCM.PN ---
Subjective - Date & Time of Evaluation Date of Evaluation: 05/27/17 Time of Evaluation: 08:40 - Subjective Subjective: I have seen and examined patient, resting comfortably in bed. No acute events overnight, she is denies abdominal pain, nausea, vomiting, diarrhea, fever/ chills. Tolerating PO diet without difficulty. Review of vitals from today shows bradycardia and elevated BP. 12 point review of systems performed, negative aside from mentioned above. Objective - Vital Signs/Intake and Output Vital Signs (last 24 hours): Temp Pulse Resp BP Pulse Ox 97.9 F 51 L 18 163/72 H 95 05/27/17 06:00 05/27/17 06:00 05/27/17 06:00 05/27/17 06:00 05/27/17 06:00 Intake and Output: 05/27/17 05/27/17 06:59 18:59 Intake Total 1800 Balance 1800 - Medications Medications: Current Medications Albuterol/Ipratropium (Duoneb 3 Mg/0.5 Mg (3 Ml) Ud) 3 ml IH [id number] PRN PRN Reason: Wheezing Last Admin: 05/26/17 05:58 Dose: 3 ml Benzonatate (Tessalon Perles) 100 mg PO TID JOSEY Last Admin: 05/26/17 18:36 Dose: 100 mg Doxycycline Hyclate (Doryx) 100 mg PO Q12 JOSEY PRN Reason: Protocol Stop: 06/01/17 10:01 Last Admin: 05/26/17 21:00 Dose: 100 mg Haloperidol Lactate (Haldol) 2 mg IVP Q4H PRN; Protocol PRN Reason: Agitation Last Admin: 05/24/17 22:06 Dose: 2 mg Lactated Ringer's (Lactated Ringer's) 1,000 mls @ 150 mls/hr IV .Q6H40M [facility]SEY Last Admin: 05/27/17 06:02 Dose: 150 mls/hr Ibuprofen (Motrin Tab) 400 mg PO Q6H PRN PRN Reason: Headache Last Admin: 05/26/17 12:38 Dose: 400 mg Lactobacillus Acidophilus (Bacid Acidophilus) 1 cap PO BID JOSEY Last Admin: 05/26/17 18:36 Dose: 1 cap Loperamide HCl (Imodium) 2 mg PO QID PRN PRN Reason: Diarrhea Last Admin: 05/27/17 08:34 Dose: 2 mg Morphine Sulfate (Morphine) 2 mg IVP Q4H PRN PRN Reason: Pain moderate Last Admin: 05/25/17 22:26 Dose: 2 mg Pantoprazole Sodium (Protonix Inj) 40 mg IVP DAILY JOSEY Last Admin: 05/26/17 10:26 Dose: 40 mg - Labs Labs: 05/27/17 07:04 05/27/17 07:04 PT 15.8 SECONDS (9.4-12.5) H 05/24/17 18:05 INR 1.44 (0.93-1.08) H 05/24/17 18:05 APTT 27.1 Seconds (25.1-36.5) 05/24/17 18:05 - Constitutional Appears: Non-toxic, No Acute Distress - Head Exam Head Exam: NORMAL INSPECTION - Eye Exam Eye Exam: EOMI, Normal appearance - ENT Exam ENT Exam: Mucous Membranes Moist - Respiratory Exam Respiratory Exam: Clear to Ausculation Bilateral - Cardiovascular Exam Cardiovascular Exam: REGULAR RHYTHM, +S1, +S2 - GI/Abdominal Exam GI & Abdominal Exam: Soft, Normal Bowel Sounds Additional comments: non tender to palpation in four quadrants - Extremities Exam Extremities Exam: Normal Inspection - Skin Skin Exam: Dry, Intact, Normal Color, Warm Assessment and Plan - Assessment and Plan (Free Text) Assessment: Chronic pancreatitis AMS - resolved, likely secondary to pain medication overdose Pneumonia Transaminitis Plan: - Low fat diet as tolerated - Continue with antibiotic therapy as per medical team - LFTs trending down, monitor - Awaiting autoimmune serologies - No further planned GI intervention, will sign off case. Patient would benefit from additional outpatient follow up with repeat LFTs. Please reconsult as necessary, thank you.
[2017-05-27] MEDS ORDERED: Potassium Chloride 40 mEq/30 ml LIQ UD PO ONE (09:37)
[2017-05-27] MEDS: Lactobacillus Acidophilus 500 MU Cap PO SCH (10:15)
--- NOTE | 2017-05-27 10:20 | CP.PCM.DIS ---
<En Jeffers - Last Filed: 05/27/17 15:21> Provider - Provider Date of Admission: 05/23/17 23:29 Attending physician: Margaret Ferro MD Time Spent in preparation of Discharge (in minutes): 45 Diagnosis - Discharge Diagnosis (1) Pancreatitis Status: Chronic Priority: Medium (2) Asthma Status: Chronic Priority: Low (3) Altered mental status Status: Resolved Priority: Low (4) Elevated liver enzymes Status: Acute Priority: Medium (5) Diarrhea Status: Acute Priority: Medium (6) Acute kidney failure Status: Resolved Priority: Medium (7) Rhabdomyolysis Status: Acute Priority: Medium Hospital Course - Lab Results Lab Results: Micro Results 05/24/17 00:49 Cerebral Spinal Fluid Gram Stain - Final 05/24/17 00:49 Cerebral Spinal Fluid CSF Culture - Preliminary NO GROWTH AFTER 2 DAYS 05/25/17 09:58 Stool C. difficile Antigen & Toxin A,B (M - Final 05/24/17 07:48 Nose MRSA Culture (Admit) - Final MRSA NOT DETECTED Most Recent Lab Values WBC 11.4 10^3/ul (4.5-11.0) H 05/27/17 07:04 RBC 4.11 10^6/uL (3.5-6.1) 05/27/17 07:04 Hgb 11.1 g/dL (12.0-16.0) L 05/27/17 07:04 Hct 34.0 % (36.0-48.0) L 05/27/17 07:04 MCV 82.7 fl (80.0-105.0) 05/27/17 07:04 MCH 27.0 pg (25.0-35.0) 05/27/17 07:04 MCHC 32.6 g/dl (31.0-37.0) 05/27/17 07:04 RDW 15.6 % (11.5-14.5) H 05/27/17 07:04 Plt Count 213 10^3/uL (120.0-450.0) 05/27/17 07:04 MPV 9.2 fl (7.0-11.0) 05/27/17 07:04 Gran % 86.2 % (50.0-68.0) H 05/23/17 21:10 Lymph % (Auto) 6.3 % (22.0-35.0) L 05/23/17 21:10 [place] % (Auto) 7.4 % (1.0-6.0) H 05/23/17 21:10 Eos % (Auto) 0.0 % (1.5-5.0) L 05/23/17 21:10 Baso % (Auto) 0.1 % (0.0-3.0) 05/23/17 21:10 Gran # 24.24 (1.4-6.5) H 05/23/17 21:10 Lymph # 1.8 (1.2-3.4) 05/23/17 21:10 [place] # 2.1 (0.1-0.6) H 05/23/17 21:10 Eos # 0.0 (0.0-0.7) 05/23/17 21:10 Baso # 0.02 K/mm3 (0.0-2.0) 05/23/17 21:10 PT 15.8 SECONDS (9.4-12.5) H 05/24/17 18:05 INR 1.44 (0.93-1.08) H 05/24/17 18:05 APTT 27.1 Seconds (25.1-36.5) 05/24/17 18:05 pCO2 30 mm/Hg (35-45) L 05/24/17 12:25 pO2 100.0 mm/Hg (80-100) 05/24/17 12:25 HCO3 20.4 mmol/L (21-28) L 05/24/17 12:25 ABG pH 7.44 (7.35-7.45) 05/24/17 12:25 ABG Total CO2 21.3 mmol.L (22-28) L 05/24/17 12:25 ABG O2 Saturation 98.5 % (95-98) H 05/24/17 12:25 ABG Base Excess -2.7 mmol/L (-2.0-3.0) L 05/24/17 12:25 ABG Potassium 2.9 mmol/L (3.6-5.2) L 05/24/17 12:25 VBG pH 7.23 (7.32-7.43) L 05/24/17 05:45 VBG pCO2 42.0 (40-60) 05/24/17 05:45 VBG HCO3 17.6 mmol/l (21-28) L 05/24/17 05:45 VBG Total CO2 18.9 mmol.L (22-28) L 05/24/17 05:45 VBG O2 Sat (Calc) 97.4 % (40-65) H 05/24/17 05:45 VBG Base Excess -9.6 mmol/L (0.0-2.0) L 05/24/17 05:45 VBG Potassium 3.9 mmol/L (3.6-5.2) 05/24/17 05:45 Sodium 143.0 mmol/L (132-148) 05/24/17 12:25 Chloride 113.0 mmol/L (98-107) H 05/24/17 12:25 Glucose 167 mg/dl (65-105) H 05/24/17 12:25 Lactate 1.2 mmol/L (0.7-2.1) 05/24/17 12:25 Mechanical Rate 14 05/24/17 07:55 FiO2 60.0 % 05/24/17 12:25 Tidal Volume 500 05/24/17 07:55 PEEP 5 05/24/17 12:25 Pressure Support 6 05/24/17 12:25 Sodium 146 mmol/L (132-148) 05/27/17 07:04 Potassium 3.3 mmol/L (3.6-5.0) L 05/27/17 07:04 Chloride 112 mmol/L (98-107) H 05/27/17 07:04 Carbon Dioxide 26 mmol/L (21-33) 05/27/17 07:04 Anion Gap 11 (10-20) 05/27/17 07:04 BUN 7 mg/dL (7-21) 05/27/17 07:04 Creatinine 0.5 mg/dl (0.7-1.2) L 05/27/17 07:04 Est GFR ( Amer) > 60 05/27/17 07:04 Est GFR (Non-Af Amer) > 60 05/27/17 07:04 Random Glucose 104 mg/dL (70-110) 05/27/17 07:04 Calcium 8.6 mg/dL (8.4-10.5) 05/27/17 07:04 Phosphorus 3.4 mg/dL (2.5-4.5) 05/27/17 07:04 Magnesium 1.7 mg/dL (1.7-2.2) 05/27/17 07:04 Total Bilirubin 1.0 mg/dL (0.2-1.3) 05/27/17 07:04 Direct Bilirubin 0.4 mg/dL (0.0-0.4) 05/24/17 18:05 AST 103 U/L (14-36) H D 05/27/17 07:04 ALT 254 U/L (7-56) H 05/27/17 07:04 Alkaline Phosphatase 80 U/L (38-126) 05/27/17 07:04 Ammonia < 9 umol/L (9-33) L 05/24/17 05:45 Total Creatine Kinase 2152 U/L (35-230) H 05/27/17 07:04 CK-MB (CK-2) 3.0 ng/mL (0.0-3.6) 05/27/17 07:04 CK-MB (CK-2) % 0.2 % (2.5-3.0) L 05/25/17 06:00 Total Protein 6.0 g/dL (5.8-8.3) 05/27/17 07:04 Albumin 3.2 g/dL (3.0-4.8) 05/27/17 07:04 Globulin 2.8 gm/dL 05/27/17 07:04 Albumin/Globulin Ratio 1.1 (1.1-1.8) 05/27/17 07:04 Procalcitonin 0.81 NG/ML (0.19-0.49) H 05/25/17 06:00 Free T4 0.85 ng/dL (0.78-2.19) 05/24/17 05:45 TSH 3rd Generation 0.28 mIU/mL (0.46-4.68) L 05/24/17 05:45 Arterial Blood Potassium 2.9 mmol/L (3.6-5.2) L 05/24/17 12:25 Venous Blood Potassium 3.9 mmol/L (3.6-5.2) 05/24/17 05:45 Urine Color Yellow (YELLOW) 05/23/17 21:38 Urine Appearance Sl cloudy (CLEAR) 05/23/17 21:38 Urine pH 6.0 (4.7-8.0) 05/23/17 21:38 Ur Specific [place] 1.020 (1.005-1.035) 05/23/17 21:38 Urine Protein 30 mg/dL (<30 mg/dL) H 05/23/17 21:38 Urine Glucose (UA) 100 mg/dL (NEGATIVE) H 05/23/17 21:38 Urine Ketones Negative mg/dL (NEGATIVE) 05/23/17 21:38 Urine Blood Negative (NEGATIVE) 05/23/17 21:38 Urine Nitrate Positive (NEGATIVE) H 05/23/17 21:38 Urine Bilirubin Negative (NEGATIVE) 05/23/17 21:38 Urine Urobilinogen 0.2 E.U./dL (<1 E.U./dL) 05/23/17 21:38 Ur Leukocyte Esterase Negative Rayray/uL (NEGATIVE) 05/23/17 21:38 Urine RBC Negative /hpf (0-2) 05/23/17 21:38 Urine WBC 5 - 10 /hpf (0-6) 05/23/17 21:38 Ur Epithelial Cells 1 - 3 /hpf (0-5) 05/23/17 21:38 Urine Bacteria Many (NEG) 05/23/17 21:38 Fluid Type Spinal fluid 05/24/17 01:20 CSF Volume 1 mL (0-1) 05/24/17 01:20 CSF Appearance Clear/colorless (CLEAR) 05/24/17 01:20 CSF WBC 3.0 /uL (0.0-5.0) 05/24/17 01:20 CSF RBC 26.0 /uL (0.0-0.0) H 05/24/17 01:20 CSF Total Cell Counted (0-0) 05/24/17 01:20 CSF Monos/Macrophages TEST NOT PERFORMED 05/24/17 01:20 CSF Comment Colorless 05/24/17 01:20 CSF Glucose 143 mg/dL (40-70) H* 05/24/17 00:49 CSF Total Protein 38.0 mg/dL (12-60) 05/24/17 00:49 CSF Cryptococcus Ag Negative (NEGATIVE) 05/24/17 01:20 Salicylates < 1 mg/dL (2.0-20.0) L 05/23/17 21:10 Urine Opiates Screen Positive (NEGATIVE) H 05/23/17 21:38 Urine Methadone Screen Negative (NEGATIVE) 05/23/17 21:38 Acetaminophen < 10.0 ug/ml (10.0-20.0) L 05/24/17 05:45 Ur Barbiturates Screen Negative (NEGATIVE) 05/23/17 21:38 Ur Phencyclidine Scrn Negative (NEGATIVE) 05/23/17 21:38 Ur Amphetamines Screen Negative (NEGATIVE) 05/23/17 21:38 U Benzodiazepines Scrn Positive (NEGATIVE) 05/23/17 21:38 U Oth Cocaine Metabols Negative (NEGATIVE) 05/23/17 21:38 U Cannabinoids Screen Negative (NEGATIVE) 05/23/17 21:38 Alcohol, Quantitative < 10 mg/dL (0-10) 05/23/17 21:10 RPR Nonreactive (NONREACTIVE) 05/24/17 05:45 Hepatitis A IgM Ab Negative (NEGATIVE) 05/24/17 05:45 Hep Bs Antigen Negative (NEGATIVE) 05/24/17 05:45 Hep B Core IgM Ab Negative (NEGATIVE) 05/24/17 05:45 Hepatitis C Antibody Negative (NEGATIVE) 05/24/17 05:45 HIV 1&2 Ag/Ab, 4th Gen Nonreactive (Nonreactive) 05/24/17 05:45 Influenza Typ A,B (EIA) Negative for flu a/b (NEGATIVE) 05/24/17 12:32 Ur L.pneumophila Ag Negative (NEGATIVE) 05/24/17 20:40 - Hospital Course Hospital Course: Patient is a 51 year old female with a PMHx of chronic pancreatitis, migraines and asthma who was admitted for evaluation and treatment of altered mental status. With the use of physical examinations, lab work, and imaging the patient was diagnosed with and treated for sepsis, AMS likely secondary to substance abuse, and rhabdomyolysis. She was initially intubated for airway protection and monitored closely in the ICU. Once patient passed the weaning trial she was extubated. Lumbar puntcture was done and ruled out meningitis. During their hospital stay the patient was seen by the critical care team, infectious disease specialists, pyschiatrist, tray line supervisor, and physical therapist whose recommendations were both appreciated and utilized in the care for this patient. During their hospital stay the patient underwent a head CT, abdominal/ pelvic CT, gallbladder ultrasound, echocardiogram, and chest xray which were reviewed, appreciated, and utilized in the management of the patients clinical course. Patient was treated with analgestics, antibiotics, nebulizers amongst other empiric/therapeutic medications. Patient desired to leave against medical advice due to social issues. Patient was educated on the risks and benefits of leaving at this time without being medically cleared. Patient both understands and appreciates that leaving against medical advice can increase his risk of both morbidity and mortality. Furthermore, the patient is instructed to return to the emergency room for evaluation of intractable headache, fever, chills, dizziness, chest pain, shortness of breath, abdominal pain, nausea, vomiting, diarrhea, constipation, and urinary symptoms. This is a brief summary of the patients hospital course. Please see patient chart for full details. Discharge Exam - Head Exam Head Exam: NORMAL INSPECTION - Additional Findings Additional findings: - Constitutional Appears: No Acute Distress - Head Exam Head Exam: ATRAUMATIC, NORMOCEPHALIC - Eye Exam Eye Exam: EOMI, PERRL Pupil Exam: NORMAL ACCOMODATION - ENT Exam ENT Exam: Mucous Membranes Moist - Respiratory Exam Respiratory Exam: Clear to Ausculation Bilateral. absent: Rales, Rhonchi, Wheezes - Cardiovascular Exam Cardiovascular Exam: REGULAR RHYTHM, +S1, +S2 - GI/Abdominal Exam GI & Abdominal Exam: Soft. absent: Tenderness - Extremities Exam Extremities Exam: absent: Calf Tenderness, Pedal Edema - Neurological Exam Neurological Exam: Patient is awake, alert, responds to verbal stimuli, answers questions appropriately, follows commands, and moves extremities past midline - Psychiatric Exam Psychiatric exam: absent: Depressed - Skin Skin Exam: Dry, Intact Discharge Plan - Discharge Medications Prescriptions: Doxycycline Hyclate [Doryx] 100 mg PO Q12H #8 cap - Follow Up Plan Condition: GOOD Disposition: AGAINST MEDICAL ADVICE Patient education suggested?: Yes Additional Instructions: Patient Instructions: Take medications as prescribed. new medication includes doxyclcyline 100mg 1 tablet by mouth twice a day for 4 days. Follow up with PMD and referrals within three to five days from discharge. Return to the emergency room for evaluation of intractable headache, fever, chills, dizziness, chest pain, shortness of breath, abdominal pain, nausea, vomiting, diarrhea, constipation, and urinary symptoms. Referrals: Antonio Lorenzo MD [Staff Provider] - PCP,NO [Non-Staff] - <Margaret Ferro - Last Filed: 05/27/17 15:37> Provider - Provider Date of Admission: 05/23/17 23:29 Attending physician: Margaret Ferro MD Hospital Course - Lab Results Lab Results: Micro Results 05/24/17 00:49 Cerebral Spinal Fluid Gram Stain - Final 05/24/17 00:49 Cerebral Spinal Fluid CSF Culture - Preliminary NO GROWTH AFTER 3 DAYS 05/25/17 09:58 Stool C. difficile Antigen & Toxin A,B (M - Final 05/24/17 07:48 Nose MRSA Culture (Admit) - Final MRSA NOT DETECTED Most Recent Lab Values WBC 11.4 10^3/ul (4.5-11.0) H 05/27/17 07:04 RBC 4.11 10^6/uL (3.5-6.1) 05/27/17 07:04 Hgb 11.1 g/dL (12.0-16.0) L 05/27/17 07:04 Hct 34.0 % (36.0-48.0) L 05/27/17 07:04 MCV 82.7 fl (80.0-105.0) 05/27/17 07:04 MCH 27.0 pg (25.0-35.0) 05/27/17 07:04 MCHC 32.6 g/dl (31.0-37.0) 05/27/17 07:04 RDW 15.6 % (11.5-14.5) H 05/27/17 07:04 Plt Count 213 10^3/uL (120.0-450.0) 05/27/17 07:04 MPV 9.2 fl (7.0-11.0) 05/27/17 07:04 Gran % 86.2 % (50.0-68.0) H 05/23/17 21:10 Lymph % (Auto) 6.3 % (22.0-35.0) L 05/23/17 21:10 [place] % (Auto) 7.4 % (1.0-6.0) H 05/23/17 21:10 Eos % (Auto) 0.0 % (1.5-5.0) L 05/23/17 21:10 Baso % (Auto) 0.1 % (0.0-3.0) 05/23/17 21:10 Gran # 24.24 (1.4-6.5) H 05/23/17 21:10 Lymph # 1.8 (1.2-3.4) 05/23/17 21:10 [place] # 2.1 (0.1-0.6) H 05/23/17 21:10 Eos # 0.0 (0.0-0.7) 05/23/17 21:10 Baso # 0.02 K/mm3 (0.0-2.0) 05/23/17 21:10 PT 15.8 SECONDS (9.4-12.5) H 05/24/17 18:05 INR 1.44 (0.93-1.08) H 05/24/17 18:05 APTT 27.1 Seconds (25.1-36.5) 05/24/17 18:05 pCO2 30 mm/Hg (35-45) L 05/24/17 12:25 pO2 100.0 mm/Hg (80-100) 05/24/17 12:25 HCO3 20.4 mmol/L (21-28) L 05/24/17 12:25 ABG pH 7.44 (7.35-7.45) 05/24/17 12:25 ABG Total CO2 21.3 mmol.L (22-28) L 05/24/17 12:25 ABG O2 Saturation 98.5 % (95-98) H 05/24/17 12:25 ABG Base Excess -2.7 mmol/L (-2.0-3.0) L 05/24/17 12:25 ABG Potassium 2.9 mmol/L (3.6-5.2) L 05/24/17 12:25 VBG pH 7.23 (7.32-7.43) L 05/24/17 05:45 VBG pCO2 42.0 (40-60) 05/24/17 05:45 VBG HCO3 17.6 mmol/l (21-28) L 05/24/17 05:45 VBG Total CO2 18.9 mmol.L (22-28) L 05/24/17 05:45 VBG O2 Sat (Calc) 97.4 % (40-65) H 05/24/17 05:45 VBG Base Excess -9.6 mmol/L (0.0-2.0) L 05/24/17 05:45 VBG Potassium 3.9 mmol/L (3.6-5.2) 05/24/17 05:45 Sodium 143.0 mmol/L (132-148) 05/24/17 12:25 Chloride 113.0 mmol/L (98-107) H 05/24/17 12:25 Glucose 167 mg/dl (65-105) H 05/24/17 12:25 Lactate 1.2 mmol/L (0.7-2.1) 05/24/17 12:25 Mechanical Rate 14 05/24/17 07:55 FiO2 60.0 % 05/24/17 12:25 Tidal Volume 500 05/24/17 07:55 PEEP 5 05/24/17 12:25 Pressure Support 6 05/24/17 12:25 Sodium 146 mmol/L (132-148) 05/27/17 07:04 Potassium 3.3 mmol/L (3.6-5.0) L 05/27/17 07:04 Chloride 112 mmol/L (98-107) H 05/27/17 07:04 Carbon Dioxide 26 mmol/L (21-33) 05/27/17 07:04 Anion Gap 11 (10-20) 05/27/17 07:04 BUN 7 mg/dL (7-21) 05/27/17 07:04 Creatinine 0.5 mg/dl (0.7-1.2) L 05/27/17 07:04 Est GFR ( Amer) > 60 05/27/17 07:04 Est GFR (Non-Af Amer) > 60 05/27/17 07:04 Random Glucose 104 mg/dL (70-110) 05/27/17 07:04 Calcium 8.6 mg/dL (8.4-10.5) 05/27/17 07:04 Phosphorus 3.4 mg/dL (2.5-4.5) 05/27/17 07:04 Magnesium 1.7 mg/dL (1.7-2.2) 05/27/17 07:04 Total Bilirubin 1.0 mg/dL (0.2-1.3) 05/27/17 07:04 Direct Bilirubin 0.4 mg/dL (0.0-0.4) 05/24/17 18:05 AST 103 U/L (14-36) H D 05/27/17 07:04 ALT 254 U/L (7-56) H 05/27/17 07:04 Alkaline Phosphatase 80 U/L (38-126) 05/27/17 07:04 Ammonia < 9 umol/L (9-33) L 05/24/17 05:45 Total Creatine Kinase 2152 U/L (35-230) H 05/27/17 07:04 CK-MB (CK-2) 3.0 ng/mL (0.0-3.6) 05/27/17 07:04 CK-MB (CK-2) % 0.2 % (2.5-3.0) L 05/25/17 06:00 Total Protein 6.0 g/dL (5.8-8.3) 05/27/17 07:04 Albumin 3.2 g/dL (3.0-4.8) 05/27/17 07:04 Globulin 2.8 gm/dL 05/27/17 07:04 Albumin/Globulin Ratio 1.1 (1.1-1.8) 05/27/17 07:04 Procalcitonin 0.81 NG/ML (0.19-0.49) H 05/25/17 06:00 Free T4 0.85 ng/dL (0.78-2.19) 05/24/17 05:45 TSH 3rd Generation 0.28 mIU/mL (0.46-4.68) L 05/24/17 05:45 Arterial Blood Potassium 2.9 mmol/L (3.6-5.2) L 05/24/17 12:25 Venous Blood Potassium 3.9 mmol/L (3.6-5.2) 05/24/17 05:45 Urine Color Yellow (YELLOW) 05/23/17 21:38 Urine Appearance Sl cloudy (CLEAR) 05/23/17 21:38 Urine pH 6.0 (4.7-8.0) 05/23/17 21:38 Ur Specific [place] 1.020 (1.005-1.035) 05/23/17 21:38 Urine Protein 30 mg/dL (<30 mg/dL) H 05/23/17 21:38 Urine Glucose (UA) 100 mg/dL (NEGATIVE) H 05/23/17 21:38 Urine Ketones Negative mg/dL (NEGATIVE) 05/23/17 21:38 Urine Blood Negative (NEGATIVE) 05/23/17 21:38 Urine Nitrate Positive (NEGATIVE) H 05/23/17 21:38 Urine Bilirubin Negative (NEGATIVE) 05/23/17 21:38 Urine Urobilinogen 0.2 E.U./dL (<1 E.U./dL) 05/23/17 21:38 Ur Leukocyte Esterase Negative [place]/uL (NEGATIVE) 05/23/17 21:38 Urine RBC Negative /hpf (0-2) 05/23/17 21:38 Urine WBC 5 - 10 /hpf (0-6) 05/23/17 21:38 Ur Epithelial Cells 1 - 3 /hpf (0-5) 05/23/17 21:38 Urine Bacteria Many (NEG) 05/23/17 21:38 Fluid Type Spinal fluid 05/24/17 01:20 CSF Volume 1 mL (0-1) 05/24/17 01:20 CSF Appearance Clear/colorless (CLEAR) 05/24/17 01:20 CSF WBC 3.0 /uL (0.0-5.0) 05/24/17 01:20 CSF RBC 26.0 /uL (0.0-0.0) H 05/24/17 01:20 CSF Total Cell Counted (0-0) 05/24/17 01:20 CSF Monos/Macrophages TEST NOT PERFORMED 05/24/17 01:20 CSF Comment Colorless 05/24/17 01:20 CSF Glucose 143 mg/dL (40-70) H* 05/24/17 00:49 CSF Total Protein 38.0 mg/dL (12-60) 05/24/17 00:49 CSF Cryptococcus Ag Negative (NEGATIVE) 05/24/17 01:20 Salicylates < 1 mg/dL (2.0-20.0) L 05/23/17 21:10 Urine Opiates Screen Positive (NEGATIVE) H 05/23/17 21:38 Urine Methadone Screen Negative (NEGATIVE) 05/23/17 21:38 Acetaminophen < 10.0 ug/ml (10.0-20.0) L 05/24/17 05:45 Ur Barbiturates Screen Negative (NEGATIVE) 05/23/17 21:38 Ur Phencyclidine Scrn Negative (NEGATIVE) 05/23/17 21:38 Ur Amphetamines Screen Negative (NEGATIVE) 05/23/17 21:38 U Benzodiazepines Scrn Positive (NEGATIVE) 05/23/17 21:38 U Oth Cocaine Metabols Negative (NEGATIVE) 05/23/17 21:38 U Cannabinoids Screen Negative (NEGATIVE) 05/23/17 21:38 Alcohol, Quantitative < 10 mg/dL (0-10) 05/23/17 21:10 RPR Nonreactive (NONREACTIVE) 05/24/17 05:45 Hepatitis A IgM Ab Negative (NEGATIVE) 05/24/17 05:45 Hep Bs Antigen Negative (NEGATIVE) 05/24/17 05:45 Hep B Core IgM Ab Negative (NEGATIVE) 05/24/17 05:45 Hepatitis C Antibody Negative (NEGATIVE) 05/24/17 05:45 HIV 1&2 Ag/Ab, 4th Gen Nonreactive (Nonreactive) 05/24/17 05:45 Influenza Typ A,B (EIA) Negative for flu a/b (NEGATIVE) 05/24/17 12:32 Ur L.pneumophila Ag Negative (NEGATIVE) 05/24/17 20:40 Attending/Attestation - Attestation I have personally seen and examined this patient.: Yes I have fully participated in the care of the patient.: Yes I have reviewed all pertinent clinical information, including history, physical exam and plan: Yes Notes (Text): 05/27/17 15:33 51 year old female with past medical history of chronic pancreatitis and asthma who presented with altered mental status secondary to suspected overdose vs pneumonia. She was intubated initially for airway protected but extubated since. Her mental status has improved to baseline. She reported she overdosed on narcotics because of severe abdominal pain and not suicidal intent. She was seen by psychiatry and 1:1 was discontinued. She was counselled on risks of continued substance abuse. She was on antibiotics for pneumonia. She had elevated LFTs which is stable and trending down. Hepatitis panel and tylenol level was negative. She initially had MASOOD which resolved. CPK level was elevated but also improved with iv fluids. She was on imodium for diarrhea. Stool for cdif was negative. Patient was seen by PT today who recommended acute rehab. However patient refused and signed out AMA. She was strongly encouraged to follow up with her pmd and pain management doctor. Counselled on risks of continued substance abuse. Counselled on opioid dependency and abuse. Fall precautions. Margaret Ferro MD Hospitalist.
--- NOTE | 2017-05-27 12:12 | CP.PCM.PN ---
<En Jeffers - Last Filed: 05/27/17 12:04> Subjective - Date & Time of Evaluation Date of Evaluation: 05/27/17 Time of Evaluation: 09:15 - Subjective Subjective: Subjective: Patient seen and examined at bedside. Resting comfortably in bed. Code star was called on patient yesterday s/p mechanical fall. No acute intervention was deemed necessary. Patient admits to improvement in her diarrhea. Experienced 4 bowel movements in the past 24 hours. Offers no new complaints at this time. Denies fever, chills, chest pain, shortness of breath, abdominal pain, nausea, vomiting, constipation, and urinary symptoms. 12-point review of systems negative except as indicated in the HPI Physical Examination: - Constitutional Appears: No Acute Distress - Head Exam Head Exam: ATRAUMATIC, NORMOCEPHALIC - Eye Exam Eye Exam: EOMI, PERRL Pupil Exam: NORMAL ACCOMODATION - ENT Exam ENT Exam: Mucous Membranes Moist - Respiratory Exam Respiratory Exam: Clear to Ausculation Bilateral. absent: Rales, Rhonchi, Wheezes - Cardiovascular Exam Cardiovascular Exam: REGULAR RHYTHM, +S1, +S2 - GI/Abdominal Exam GI & Abdominal Exam: Soft. absent: Tenderness - Extremities Exam Extremities Exam: absent: Calf Tenderness, Pedal Edema - Neurological Exam Neurological Exam: Patient is awake, alert, responds to verbal stimuli, answers questions appropriately, follows commands, and moves extremities past midline - Psychiatric Exam Psychiatric exam: absent: Depressed - Skin Skin Exam: Dry, Intact Assessment and Plan: Patient is a 51 year old female with a PMHx of chronic pancreatitis, migraines and asthma who presented with sepsis and AMS likely 2/2 substance abuse vs pneumonia. She was intubated for airway protection and is currently extubated on high flow O2. Patient is move to the telemetry floor. AMS - resolved - LP was done and ruled out meningitis - Head CT was negative - Consulted psych for recs- no acute intervention required, patient deemed not to be threat to herself or others - Haloperidol PRN for agitations RLL pneumonia - Wbc improving - Abd CT shows RLL consolidations - F/u ID consult and recs - Continue doxycycline - Blood cultures- no growth after 48 hour Dirrhea - c. diff negative - imodium - probiotic Elevated Liver Enzymes - GI consulted - appreciate recs- no acute intervention, autoimmune panel pending - Hepatitis panel negative - Will cont to monitor Rhabdomylosis - Cont LR @ 150 - CK noted to decrease - Will monitor MASOOD - resolved - will cont to monitor Hypokalemia - Repleted and mag appreciated - cont to monitor Hypophosphatemia - repleted Deconditioning - physical therapy consulted- as per RN, physical therapist noted patient does not elicit a "quadriceps kick" leading to her falls- will await further recommendations GI/DVT ppx - protonix - subq heparin Patient seen, case discussed with, and plan approved by attending physician, Dr. Ferro. Objective - Vital Signs/Intake and Output Vital Signs (last 24 hours): Temp Pulse Resp BP Pulse Ox 97.9 F 51 L 18 163/72 H 95 05/27/17 06:00 05/27/17 06:00 05/27/17 06:00 05/27/17 06:00 05/27/17 06:00 Intake and Output: 05/27/17 05/27/17 06:59 18:59 Intake Total 1800 Balance 1800 - Medications Medications: Current Medications Albuterol/Ipratropium (Duoneb 3 Mg/0.5 Mg (3 Ml) Ud) 3 ml IH [id number] PRN PRN Reason: Wheezing Last Admin: 05/26/17 05:58 Dose: 3 ml Benzonatate (Tessalon Perles) 100 mg PO TID [facility] Last Admin: 05/27/17 10:15 Dose: 100 mg Doxycycline Hyclate (Doryx) 100 mg PO Q12 JOSEY PRN Reason: Protocol Stop: 06/01/17 10:01 Last Admin: 05/27/17 10:15 Dose: 100 mg Haloperidol Lactate (Haldol) 2 mg IVP Q4H PRN; Protocol PRN Reason: Agitation Last Admin: 05/24/17 22:06 Dose: 2 mg Lactated Ringer's (Lactated Ringer's) 1,000 mls @ 150 mls/hr IV .Q6H40M [facility] Last Admin: 05/27/17 06:02 Dose: 150 mls/hr Ibuprofen (Motrin Tab) 400 mg PO Q6H PRN PRN Reason: Headache Last Admin: 05/26/17 12:38 Dose: 400 mg Lactobacillus Acidophilus (Bacid Acidophilus) 1 cap PO BID [facility] Last Admin: 05/27/17 10:15 Dose: 1 cap Loperamide HCl (Imodium) 2 mg PO QID PRN PRN Reason: Diarrhea Last Admin: 05/27/17 08:34 Dose: 2 mg Morphine Sulfate (Morphine) 2 mg IVP Q4H PRN PRN Reason: Pain moderate Last Admin: 05/25/17 22:26 Dose: 2 mg Pantoprazole Sodium (Protonix Inj) 40 mg IVP DAILY [facility] Last Admin: 05/27/17 10:17 Dose: 40 mg - Labs Labs: 05/27/17 07:04 05/27/17 07:04 PT 15.8 SECONDS (9.4-12.5) H 05/24/17 18:05 INR 1.44 (0.93-1.08) H 05/24/17 18:05 APTT 27.1 Seconds (25.1-36.5) 05/24/17 18:05 Assessment and Plan (1) Pancreatitis Status: Chronic (2) Asthma Status: Chronic (3) Altered mental status Status: Resolved (4) Elevated liver enzymes Status: Acute (5) Diarrhea Status: Acute (6) Acute kidney failure Status: Resolved (7) Rhabdomyolysis Status: Acute <Margaret Ferro - Last Filed: 05/27/17 12:23> Objective - Vital Signs/Intake and Output Vital Signs (last 24 hours): Temp Pulse Resp BP Pulse Ox 98.2 F 56 L 18 137/88 95 05/27/17 12:00 05/27/17 12:00 05/27/17 12:00 05/27/17 12:00 05/27/17 06:00 Intake and Output: 05/27/17 05/27/17 06:59 18:59 Intake Total 1800 Balance 1800 - Medications Medications: Current Medications Albuterol/Ipratropium (Duoneb 3 Mg/0.5 Mg (3 Ml) Ud) 3 ml IH [id number] PRN PRN Reason: Wheezing Last Admin: 05/26/17 05:58 Dose: 3 ml Benzonatate (Tessalon Perles) 100 mg PO TID [facility] Last Admin: 05/27/17 10:15 Dose: 100 mg Doxycycline Hyclate (Doryx) 100 mg PO Q12 JOSEY PRN Reason: Protocol Stop: 06/01/17 10:01 Last Admin: 05/27/17 10:15 Dose: 100 mg Haloperidol Lactate (Haldol) 2 mg IVP Q4H PRN; Protocol PRN Reason: Agitation Last Admin: 05/24/17 22:06 Dose: 2 mg Lactated Ringer's (Lactated Ringer's) 1,000 mls @ 150 mls/hr IV .Q6H40M [facility] Last Admin: 05/27/17 06:02 Dose: 150 mls/hr Ibuprofen (Motrin Tab) 400 mg PO Q6H PRN PRN Reason: Headache Last Admin: 05/26/17 12:38 Dose: 400 mg Lactobacillus Acidophilus (Bacid Acidophilus) 1 cap PO BID [facility] Last Admin: 05/27/17 10:15 Dose: 1 cap Loperamide HCl (Imodium) 2 mg PO QID PRN PRN Reason: Diarrhea Last Admin: 05/27/17 08:34 Dose: 2 mg Morphine Sulfate (Morphine) 2 mg IVP Q4H PRN PRN Reason: Pain moderate Last Admin: 05/25/17 22:26 Dose: 2 mg Pantoprazole Sodium (Protonix Inj) 40 mg IVP DAILY [facility] Last Admin: 05/27/17 10:17 Dose: 40 mg - Labs Labs: 05/27/17 07:04 05/27/17 07:04 PT 15.8 SECONDS (9.4-12.5) H 05/24/17 18:05 INR 1.44 (0.93-1.08) H 05/24/17 18:05 APTT 27.1 Seconds (25.1-36.5) 05/24/17 18:05 Attending/Attestation - Attestation I have personally seen and examined this patient.: Yes I have fully participated in the care of the patient.: Yes I have reviewed all pertinent clinical information, including history, physical exam and plan: Yes Notes (Text): 05/27/17 12:20 51 year old female with past medical history of chronic pancreatitis and asthma who presented with altered mental status secondary to suspected overdose vs pneumonia. She was intubated initially for airway protected but extubated since. Her mental status has improved to baseline. Psychiatry evaluation was appreciated. CT head was negative. Utox was positive for opiates and benzodiazepines. She was counselled on risks of continued substance abuse. Continue with antibiotics as per ID for RLL pneumonia. Leukocytosis has improved. She was also found to have elevated LFTs which is stable and trending down. Hepatitis panel and tylenol level was negative. GI evaluation was appreciated autoimmune workup is in process. Her utrasound of the abdomen was reviewed. Will continue to trend her LFTs. She initially had MASOOD which resolved. She is on iv fluids for rhabdo. CPK level continues to improve. She is on imodium for diarrhea. Stool for cdif was negative. Will replete and repeat lytes. Overnight event was reviewed. PT evaluation is requested for d/c planning. Margaret Ferro MD Hospitalist.
[2017-05-27 12:19] VITALS: BP 137/88; PULSE 56; TEMP 98.2
--- NOTE | 2017-05-27 13:43 | PN ---
DATE: 05/27/2017 LOCATION: The patient seen earlier this morning in room number 271, bed 1. SUBJECTIVE: She is doing well. No fevers and no chills. No nausea or vomiting. She wants to be discharged. PHYSICAL EXAMINATION: VITAL SIGNS: Temperature is 97, blood pressure is 160/70, and respiratory rate of 18. HEENT: Examination of HEENT is unremarkable. NECK: Supple. LUNGS: Decreased breath sounds. HEART: Normal S1 and S2. GASTROINTESTINAL: Abdominal examination is soft and nontender. LABORATORY DATA: Examination reveals the patient's white count of 11,400, hemoglobin of 11, and platelets of 213. Chemistries reveals the BUN of 7 and creatinine of 0.5. Urinalysis is noted. CSF is noted to be negative. Toxicology is reviewed. Serology is negative. Microbiology reveals cultures are negative. Urine culture is positive for Escherichia coli. The patient had Holloway catheter in. Stool Clostridium difficile and antigen is negative. ASSESSMENT AND PLAN: This is a 51-year-old female who was admitted with drug overdose, right lower lobe consolidation, patchy infiltrate and currently on doxycycline with complete p.o. doxycycline 5 to 7 days and I will discontinue ceftriaxone. The patient wants to be discharged, today is day number 3 of 5 to 7 days of doxycycline and she complete p.o. doxycycline and we will discontinue ceftriaxone. No further antibiotics other than doxycycline. The patient's LFTs are also improving. GI consultation is noted and reviewed. Lamont Castillo MD
--- NOTE | 2017-05-28 12:21 | PQF RESP ---
05/28/17 Dr. Ferro, Respiratory failure is documented with patient placed on a vent in the ED. Please specify whether respiratory failure is acute/chronic, with/without hypoxia/hypercapnia, as listed below. Thank you. Clarification of your documentation is requested to better reflect the severity of illness and intensity of treatment of your patient. Indicators present [] Use of Home Oxygen [] Respiratory rate > 28 or <8/min (Labored respirations) [] PCO2 > 50 mm Hg or (Hypercapnia) (somnolence) [] PaO2 < 60 mm Hg or Hypoxemia (confusion) [] ABG blood gas pH < 7.35 [] SpO2 < 90% sat on Room Air [] Cyanosis [x] Unable to Speak in Full Sentences [] Use of Accessory Muscles / Tripoding [] Wheezing [] Other: [] Location in the medical record that reflects the above clinical findings: [] Treatment Provided: [] PHYSICIAN'S RESPONSE Based on your medical judgment of the clinical indicators outlined above, are you treating this patient for a known or suspected: [] Acute Respiratory Failure (hypoxia or hypercapnia) [] Chronic Respiratory Failure (hypoxia or hypercapnia) [] Acute on Chronic Respiratory Failure (hypoxia or hypercapnia) [] Hypoxemia please specify ACUTE, CHRONIC or ACUTE on CHRONIC [x] Other []_drug overdose; altered mental status; please refer to ER note [] If unable to determine, please check the box, sign and date. Present On Admission (POA) Indicator: [] Present at the time of admission [] Not present at the time of admission [] Clinically Undetermined In responding to this query, please exercise your independent professional judgment. The fact that a question is asked does not imply that any particular answer is desired or expected. Thank you for your clarification on this documentation. If you have any questions please call:[ ] * Thank you, [ ] assembler type bar and segment Chronic Respiratory Failure Description: Respiratory failure is a syndrome in which the respiratory system fails in one or both of its gas exchange functions: oxygenation and carbon dioxide elimination. In theory, respiratory failure is defined as a Pa02 value of <60 mm/Hg or a PaC02 of >50 mm/Hg. However, these values may be affected by renal compensation. Respiratory failure may be acute or chronic. While acute respiratory failure is characterized by life-threatening derangement in arterial blood gases and acid-base balance, the manifestations of chronic respiratory failure are less dramatic and may not be as readily apparent. Classifications: Respiratory failure may be classified as hypoxemic (usually characterized by Pa02 of <60 mm/Hg) or hypercapnic (usually characterized by PaC02 >50 mm/Hg) and either may be acute or chronic. Chronic hypercapnic respiratory failure develops over time and allows for renal compensation and an increase in bicarbonate concentration; therefore the pH is usually only slightly decreased. The distinction between acute and chronic hypoxemic respiratory failure cannot readily be made on the basis of ABGs; the clinical markers of chronic hypoxemia, such as polythycemia or cor pulmonale suggest a long standing disorder (chronic hypoxemic respiratory failure). Clinical Indicators: dyspnea at rest or "chronic" dyspnea, concomitant conditions such as polycythemia or cor pulmonale, requirement for continuous oxygen support, forced expiratory volume in one second (FEV1) of 49 or less, pursed lip breathing, "barrel" chest, hyperinflation by CXR, muscle wasting, malnutrition/obesity, poor exercise capacity, peripheral edema, description as a "blue bloater" (usually associated with chronic, obstructive bronchitis) or "pink puffer" (usually associated with emphysema) Risks: Chronic Hypoxemic Respiratory Failure - COPD, pulmonary fibrosis, asthma , pulmonary arterial hypertension, granulomatous lung diseases, congenital heart disease, bronchiectasis, kyphoscoliosis, obesity; Chronic Hypercapnic Respiratory Failure - COPD, severe asthma, myasthenia gravis, polyneuropathy, polio, head and cervical spine injuries, obesity hypoventilation syndrome. Treatment: supplemental oxygen, bronchodilators, corticosteroids, adequate nutrition, lung transplant References: Am. J. Respir. Crit. Care Med. "Global Strategy for the Diagnosis, Management and Prevention of COPD: GOLD Exectuive Summary," Tammi Quevedo Anzueto - 2007; Proceedings of the [place] [employer] "Mechanisms and Measurements of Dyspnea in COPD," Kiana - 2006; WebMD; Respiratory Failure, Reese May MD - 12/2005; Cecil's Principles of Internal Medicine, 17th edition. Acute Respiratory Failure Acute Respiratory Failure indicators include: ~Respirations >28 ~Air hunger ~Use of accessory muscles of respiration ~Inability to speak in full sentences Cyanosis ~Pulse ox <90% RA or <95% on O2 pH <7.35 or >7.45 ~pO2 < 60 mm Hg (or 10mm below COPD patient's baseline) ~pCO2 >50mm Hg (or 10mm above COPD patient's baseline) "Respiratory failure may be assigned as a principal diagnosis when it is the condition established after study to be chiefly responsible for occasioning admission to the hospital. The fact that the respiratory failure was managed without intubation and mechanical ventilation does not preclude its use." [facility], 3rd Qtr., 1988, p. 7 MTDD
== END 2017-05-27 15:27 | disposition left against medical advice (07) | DRG 871 ==
LOC: ED 21:08 → ERH 23:29 → CCU 05-24 01:42 → 2RSO 05-26 12:57
PROVIDERS: ADMIT Internal Medicine; ATTEND Internal Medicine
PROC: 0BH17EZ Insertion of Endotracheal Airway into Trachea, Via Natural or Artificial Opening (ICD-10-PCS; principal; 2017-05-23)
PROC: 5A1935Z Respiratory Ventilation, Less than 24 Consecutive Hours (ICD-10-PCS; 2017-05-23)
DX: A41.9 Sepsis, unspecified organism (principal); J96.90 Respiratory failure, unspecified, unspecified whether with hypoxia or hypercapnia; N17.9 Acute kidney failure, unspecified; J18.9 Pneumonia, unspecified organism; F11.20 Opioid dependence, uncomplicated; M62.82 Rhabdomyolysis; K86.1 Other chronic pancreatitis; E83.39 Other disorders of phosphorus metabolism; T40.601A Poisoning by unspecified narcotics, accidental (unintentional), initial encounter; E87.6 Hypokalemia; F17.210 Nicotine dependence, cigarettes, uncomplicated; G89.4 Chronic pain syndrome; H91.90 Unspecified hearing loss, unspecified ear; J45.909 Unspecified asthma, uncomplicated; Z79.891 Long term (current) use of opiate analgesic; Z79.899 Other long term (current) drug therapy; Z90.49 Acquired absence of other specified parts of digestive tract; Z90.710 Acquired absence of both cervix and uterus; Z96.651 Presence of right artificial knee joint; Z88.2 Allergy status to sulfonamides; Z88.8 Allergy status to other drugs, medicaments and biological substances; Z91.013 Allergy to seafood; Z87.892 Personal history of anaphylaxis; R74.0 Nonspecific elevation of levels of transaminase and lactic acid dehydrogenase [LDH]; R19.7 Diarrhea, unspecified; B96.20 Unspecified Escherichia coli [E. coli] as the cause of diseases classified elsewhere

== ENCOUNTER 2018-01-13 11:22 | Emergency (ER) | payer MEDICARE ==
[2018-01-13 11:29] VITALS: BP 124/84; PULSE 76; RESP 16; TEMP 98.4; O2SAT 99; BMI 25.0
--- NOTE | 2018-01-13 11:52 | ED PDOC ---
Arrival/HPI - General Chief Complaint: Med Refill Time Seen by Provider: 01/13/18 11:33 Historian: Patient - History of Present Illness Narrative History of Present Illness (Text): 01/13/18 12:51 52yr old female presents today requesting two oxycodone 80mg tablets to "hold her over until tomorrow". pt states she ran out of her medications and needs pain medications. pt states she has left knee pain since surgery in july. pt denies fever/chills. pt denies trauma or injury. pt states she took 2 extra pills within the past week and this is why she does not have any pills for today. Patient states she went to the pharmacy and they would not give her 2 extra pills. Patient states she gets a refill of her prescription tomorrow. Past Medical History - Provider Review Nursing Documentation Reviewed: Yes - Travel History Have you recently traveled outside [place] w/in the past 3 mons?: No - Infectious Disease Hx of Infectious Diseases: None - Tetanus Immunization Tetanus Immunization: Unknown - Reproductive Menopause: Yes - Cardiac Hx Cardiac Disorders: No - Pulmonary Hx Respiratory Disorders: Yes Hx Asthma: Yes - Neurological Hx Neurological Disorder: No - HEENT Hx HEENT Disorder: No - Renal Hx Renal Disorder: No - Endocrine/Metabolic Hx Endocrine Disorders: No - Hematological/Oncological Hx Blood Disorders: No - Integumentary Hx Dermatological Disorder: No - Musculoskeletal/Rheumatological Hx Musculoskeletal Disorders: Yes (left knee tendon) - Gastrointestinal Hx Gall Bladder Disease: Yes Hx Pancreatitis: Yes - Genitourinary/Gynecological Hx Genitourinary Disorders: No - Psychiatric Hx Psychophysiologic Disorder: No Hx Substance Use: No - Surgical History Hx Cholecystectomy: Yes Hx Hysterectomy: Yes (SHYLA/BSO) Other/Comment: artificial knee cap right lower extremity - Anesthesia Hx Anesthesia: Yes Hx Anesthesia Reactions: No Hx Malignant Hyperthermia: No - Suicidal Assessment Feels Threatened In Home Enviroment: No Family/Social History - Physician Review Nursing Documentation Reviewed: Yes Family/Social History: Unknown Family HX Smoking Status: Never Smoked Hx Alcohol Use: No Hx Substance Use: No Hx Substance Use Treatment: No Allergies/Home Meds Allergies/Adverse Reactions: Allergies iodine Allergy (Verified 01/13/18 11:29) ANGIOEDEMA shellfish derived Allergy (Verified 01/13/18 11:29) ANAPHYLAXIS Sulfa (Sulfonamide Antibiotics) Allergy (Verified 01/13/18 11:29) ANGIOEDEMA Home Medications: Home Meds Medication Instructions Recorded Confirmed Alprazolam [Xanax] 0.5 mg PO DAILY PRN 05/23/17 07/08/17 Gabapentin [Neurontin] 600 mg PO PRN PRN 05/23/17 07/08/17 HYDROmorphone [Dilaudid] 4 mg PO QID PRN 05/23/17 07/08/17 Oxycodone HCl [Oxycontin] 60 mg PO Q12H 05/23/17 07/08/17 Zolpidem [Ambien] 10 mg PO HS 05/23/17 07/08/17 Review of Systems - Review of Systems Constitutional: absent: Fatigue, Fevers Respiratory: absent: SOB, Cough Cardiovascular: absent: Chest Pain, Palpitations Gastrointestinal: absent: Abdominal Pain, Nausea, Vomiting Musculoskeletal: Arthralgias Neurological: absent: Headache, Dizziness Physical Exam Vital Signs Reviewed: Yes Vital Signs Temp Pulse Resp BP Pulse Ox 01/13/18 11:24 98.4 F 76 16 124/84 99 Temperature: Afebrile Blood Pressure: Normal Pulse: Regular Respiratory Rate: Normal Appearance: Positive for: Well-Appearing, Non-Toxic, Comfortable Pain Distress: None Mental Status: Positive for: Alert and Oriented X 3 - Systems Exam Head: Present: Atraumatic Respiratory/Chest: Present: Clear to Auscultation Cardiovascular: Present: Regular Rate and Rhythm Lower Extremity: Present: Other (left knee in Hinged ortho brace (pt refusing to remove brace for evaluation)) Skin: Present: Warm, Dry Psychiatric: Present: Alert, Oriented x 3 Medical Decision Making ED Course and Treatment: 01/13/18 12:07 pt with chronic left knee pain requesting 2 80mg oxycodones. states she ran out and gets her refill tomorrow. wants 2 pills to "hold her over until tomorrow" pt refused to move knee brace from leg. refused xrays and refused venous duplex of left leg to r/o blood clot. i reviewed [employer] aware website; pt received rx for hydromorphone and oxycodone on 01/07/18 i advised patient that i can not give her pain medications. pt left ER without treatment. impression; chronic knee pain, drug seeking behavior. left ER without treatment. Disposition/Present on Arrival - Present on Arrival Any Indicators Present on Arrival: No History of DVT/PE: No History of Uncontrolled Diabetes: No Urinary Catheter: No History of Decub. Ulcer: No History Surgical Site Infection Following: None - Disposition Have Diagnosis and Disposition been Completed?: Yes Diagnosis: Chronic knee pain Disposition: LEFT W/O TREATMENT - ER ONLY Disposition Time: 12:05 Condition: UNKNOWN
== END 2018-01-13 12:14 | disposition left against medical advice (07) ==
LOC: ED 11:22
DX: M25.562 Pain in left knee (principal); G89.29 Other chronic pain

== ENCOUNTER 2018-02-10 14:35 | Emergency (ER) | payer MEDICARE ==
[2018-02-10 14:36] VITALS: BMI 25.0
[2018-02-10 14:49] VITALS: RESP 16; O2SAT 95
--- NOTE | 2018-02-10 15:03 | ED PDOC ---
Arrival/HPI - General Chief Complaint: Pain, Chronic Time Seen by Provider: 02/10/18 14:40 Historian: Patient - History of Present Illness Narrative History of Present Illness (Text): 02/10/18 14:57 52 year old female, with past medical history of migraines, chronic pancreatitis, asthma, R knee surgery, ablation of celiac plexus (2013), cholecystectomy, and hysterectomy, presents to the Emergency department complaining of worsening lower back pain since prior to arrival. Patient states she is scheduled for her back surgery next month secondary to injury sustained after a fall. Patient states she ran out of her oxycodone and dilaudid yesterday prompting her to present to the Emergency department for pain medication. Patient denies any fever, chills, nausea, vomiting, diarrhea, abdominal pain, chest pain, shortness of breath, headache, dizziness, neck pain , trauma or any other complaints. Time/Duration: Prior to Arrival Symptom Onset: Gradual Symptom Course: Unchanged Quality: Aching Activities at Onset: Light Context: Home Past Medical History - Provider Review Nursing Documentation Reviewed: Yes - Infectious Disease Hx of Infectious Diseases: None - Tetanus Immunization Tetanus Immunization: Unknown - Cardiac Hx Cardiac Disorders: No - Pulmonary Hx Respiratory Disorders: Yes Hx Asthma: Yes - Neurological Hx Neurological Disorder: No - HEENT Hx HEENT Disorder: No - Renal Hx Renal Disorder: No - Endocrine/Metabolic Hx Endocrine Disorders: No - Hematological/Oncological Hx Blood Disorders: No - Integumentary Hx Dermatological Disorder: No - Musculoskeletal/Rheumatological Hx Musculoskeletal Disorders: Yes (left knee tendon) Hx Back Pain: Yes - Gastrointestinal Hx Gall Bladder Disease: Yes Hx Pancreatitis: Yes - Genitourinary/Gynecological Hx Genitourinary Disorders: No - Psychiatric Hx Psychophysiologic Disorder: No Hx Substance Use: No - Surgical History Hx Cholecystectomy: Yes Hx Hysterectomy: Yes (SHYLA/BSO) Other/Comment: artificial knee cap right lower extremity - Anesthesia Hx Anesthesia: Yes Hx Anesthesia Reactions: No Hx Malignant Hyperthermia: No - Suicidal Assessment Feels Threatened In Home Enviroment: No Family/Social History - Physician Review Nursing Documentation Reviewed: Yes Family/Social History: No Known Family HX Smoking Status: Never Smoked Hx Alcohol Use: No Hx Substance Use: No Hx Substance Use Treatment: No Allergies/Home Meds Allergies/Adverse Reactions: Allergies iodine Allergy (Verified 02/10/18 14:45) ANGIOEDEMA shellfish derived Allergy (Verified 02/10/18 14:45) ANAPHYLAXIS Sulfa (Sulfonamide Antibiotics) Allergy (Verified 02/10/18 14:45) ANGIOEDEMA Home Medications: Home Meds Medication Instructions Recorded Confirmed HYDROmorphone [Dilaudid] 2 mg PO TID PRN 05/23/17 02/10/18 Oxycodone HCl [Oxycontin] 60 mg PO Q12H 05/23/17 02/10/18 Review of Systems - Physician Review All systems were reviewed & negative as marked: Yes - Review of Systems Constitutional: absent: Fevers Respiratory: absent: SOB Cardiovascular: absent: Chest Pain Gastrointestinal: absent: Abdominal Pain, Diarrhea, Nausea, Vomiting Musculoskeletal: Back Pain. absent: Neck Pain Neurological: absent: Headache, Dizziness Physical Exam Vital Signs Reviewed: Yes Vital Signs Temp Pulse Resp BP Pulse Ox 02/10/18 15:18 98 F 72 16 138/86 95 02/10/18 14:42 98.1 F 71 16 144/91 H 95 02/10/18 14:36 98.1 F 71 16 144/91 H 95 Temperature: Afebrile Blood Pressure: Normal Pulse: Regular Respiratory Rate: Normal Appearance: Positive for: Well-Appearing, Non-Toxic, Comfortable Pain Distress: None Mental Status: Positive for: Alert and Oriented X 3 - Systems Exam Head: Present: Atraumatic, Normocephalic Pupils: Present: PERRL Extroacular Muscles: Present: EOMI Conjunctiva: Present: Normal Neck: Present: Normal Range of Motion Respiratory/Chest: Present: Clear to Auscultation, Good Air Exchange. No: Respiratory Distress, Accessory Muscle Use Cardiovascular: Present: Regular Rate and Rhythm, Normal S1, S2. No: Murmurs Abdomen: No: Tenderness, Distention, Peritoneal Signs Back: Present: Normal Inspection Upper Extremity: Present: Normal Inspection. No: Cyanosis, Edema Lower Extremity: Present: Normal Inspection, Other (Knee brace on left leg noted ). No: Edema Neurological: Present: GCS=15, CN II-XII Intact, Speech Normal Skin: Present: Warm, Dry, Normal Color. No: Rashes Psychiatric: Present: Alert, Oriented x 3, Normal Insight, Normal Concentration Medical Decision Making ED Course and Treatment: 02/10/18 15:04 Impression: 52 year old female presents to the Emergency department complaining of lower back pain. chornic back pain Plan: -- Flexeril -- Toradol -- Reassess and disposition Prior Visits: Notes and results from previous visits were reviewed. Progress Notes: 02/10/18 18:07 [place] rx review, numerous narcotic rx, advise treat with non narcotic. - Medication Orders Current Medication Orders: Discontinued Medications Cyclobenzaprine HCl (Flexeril) 10 mg PO STAT STA Stop: 02/10/18 14:54 Last Admin: 02/10/18 15:12 Dose: 10 mg Ketorolac Tromethamine (Toradol) 30 mg IM STAT STA Stop: 02/10/18 14:54 Last Admin: 02/10/18 15:12 Dose: 30 mg MAR Pain Assessment Document 02/10/18 15:12 SRE (Rec: 02/10/18 15:12 SRE [id number]) Pain Reassessment Is this a pain reassessment? Yes Sleep Is patient sleeping during reassessment? No Presence of Pain Presence of Pain Yes Pain Scale Used Pain Scale Used Numeric IM Administration Charges Document 02/10/18 15:12 SRE (Rec: 02/10/18 15:12 SRE [id number]) Charges for Administration # of IM Administrations 1 - Scribe Statement The provider has reviewed the documentation as recorded by the Scribe Isabelle Conklin. All medical record entries made by the Scribe were at my direction and personally dictated by me. I have reviewed the chart and agree that the record accurately reflects my personal performance of the history, physical exam, medical decision making, and the department course for this patient. I have also personally directed, reviewed, and agree with the discharge instructions and disposition. Disposition/Present on Arrival - Present on Arrival Any Indicators Present on Arrival: No History of DVT/PE: No History of Uncontrolled Diabetes: No Urinary Catheter: No History of Decub. Ulcer: No History Surgical Site Infection Following: None - Disposition Have Diagnosis and Disposition been Completed?: Yes Diagnosis: Chronic pain, Drug-seeking behavior Disposition: HOME/ ROUTINE Disposition Time: 06:00 Condition: STABLE Discharge Instructions (ExitCare): Chronic Pain Additional Instructions: please discuss all narcotic medications with you rdoctor and specialist. return to er with worsening s ymptoms or concerns. Prescriptions: Cyclobenzaprine [Cyclobenzaprine HCl] 10 mg PO DAILY PRN #10 tab PRN Reason: Muscle Spasm Naproxen 500 mg PO BID PRN #14 tab PRN Reason: Pain, Mild (1-3) Referrals: [facility] [Outside] - Follow up with primary [facility] [place] [Outside] - Follow up with primary Visco,Timothy Jett MD [Staff Provider] - Follow up with primary Forms: [employer] (Czech)
[2018-02-10 15:18] VITALS: BP 138/86; PULSE 72; TEMP 98
== END 2018-02-10 15:16 | disposition home or self-care (01) ==
LOC: ED 14:35
DX: G89.29 Other chronic pain (principal); Z76.5 Malingerer [conscious simulation]
CPT/HCPCS: 96372; 99283; J1885

== ENCOUNTER 2018-02-25 05:52 | Emergency (ER) | payer MEDICARE ==
[2018-02-25 05:54] VITALS: BMI 26.6
--- NOTE | 2018-02-25 06:06 | ED PDOC ---
Arrival/HPI - General Chief Complaint: Female Genitourinary Time Seen by Provider: 02/25/18 06:02 Historian: Patient - History of Present Illness Narrative History of Present Illness (Text): 02/25/18 06:04 Albert Jovel is a 52 year old female, whose past medical history includes chronic pain and pancreatitis, who presents to the Emergency department complaining of dysuria and urinary frequency for the past week. Patient states she took [id number] UTI medication with no significant relief. Patient denies any fever, chills, nausea, vomiting, back pain, neck pain, headache, dizziness, or any other complaints. Symptom Onset: Gradual Symptom Course: Unchanged Activities at Onset: Light Context: Home Past Medical History - Provider Review Nursing Documentation Reviewed: Yes - Infectious Disease Hx of Infectious Diseases: None - Tetanus Immunization Tetanus Immunization: Unknown - Cardiac Hx Cardiac Disorders: No - Pulmonary Hx Respiratory Disorders: Yes Hx Asthma: Yes - Neurological Hx Neurological Disorder: No - HEENT Hx HEENT Disorder: No - Renal Hx Renal Disorder: No - Endocrine/Metabolic Hx Endocrine Disorders: No - Hematological/Oncological Hx Blood Disorders: No - Integumentary Hx Dermatological Disorder: No - Musculoskeletal/Rheumatological Hx Musculoskeletal Disorders: Yes (left knee tendon) Hx Back Pain: Yes - Gastrointestinal Hx Gall Bladder Disease: Yes Hx Pancreatitis: Yes - Genitourinary/Gynecological Hx Genitourinary Disorders: No - Psychiatric Hx Psychophysiologic Disorder: No Hx Substance Use: No - Surgical History Hx Appendectomy: Yes Hx Cholecystectomy: Yes Hx Hysterectomy: Yes (SHYLA/BSO) Other/Comment: artificial knee cap right lower extremity - Anesthesia Hx Anesthesia: Yes Hx Anesthesia Reactions: No Hx Malignant Hyperthermia: No - Suicidal Assessment Feels Threatened In Home Enviroment: No Family/Social History - Physician Review Nursing Documentation Reviewed: Yes Family/Social History: Unknown Family HX Smoking Status: Never Smoked Hx Alcohol Use: No Hx Substance Use: No Hx Substance Use Treatment: No Allergies/Home Meds Allergies/Adverse Reactions: Allergies iodine Allergy (Verified 02/10/18 14:45) ANGIOEDEMA shellfish derived Allergy (Verified 02/10/18 14:45) ANAPHYLAXIS Sulfa (Sulfonamide Antibiotics) Allergy (Verified 02/10/18 14:45) ANGIOEDEMA Home Medications: Home Meds Medication Instructions Recorded Confirmed HYDROmorphone [Dilaudid] 2 mg PO TID PRN 05/23/17 02/10/18 Oxycodone HCl [Oxycontin] 60 mg PO Q12H 05/23/17 02/10/18 Review of Systems - Physician Review All systems were reviewed & negative as marked: Yes - Review of Systems Constitutional: Normal. absent: Fevers Eyes: Normal ENT: Normal Respiratory: Normal. absent: SOB, Cough Cardiovascular: Normal. absent: Chest Pain Gastrointestinal: Normal. absent: Abdominal Pain, Diarrhea, Nausea, Vomiting Genitourinary Female: Dysuria, Frequency. absent: Hematuria Musculoskeletal: Normal. absent: Back Pain, Neck Pain Skin: Normal. absent: Rash Neurological: Normal. absent: Headache, Dizziness Endocrine: Normal Hemo/Lymphatic: Normal Psychiatric: Normal Physical Exam Vital Signs Reviewed: Yes Temperature: Afebrile Blood Pressure: Normal Pulse: Regular Respiratory Rate: Normal Appearance: Positive for: Well-Appearing, Non-Toxic, Comfortable Pain Distress: None Mental Status: Positive for: Alert and Oriented X 3 - Systems Exam Head: Present: Atraumatic, Normocephalic Pupils: Present: PERRL Extroacular Muscles: Present: EOMI Conjunctiva: Present: Normal Mouth: Present: Moist Mucous Membranes Neck: Present: Normal Range of Motion Respiratory/Chest: Present: Clear to Auscultation, Good Air Exchange. No: Respiratory Distress, Accessory Muscle Use Cardiovascular: Present: Regular Rate and Rhythm, Normal S1, S2. No: Murmurs Abdomen: No: Tenderness, Distention, Peritoneal Signs Back: Present: Normal Inspection Upper Extremity: Present: Normal Inspection. No: Cyanosis, Edema Lower Extremity: Present: Normal Inspection. No: Edema Neurological: Present: GCS=15, CN II-XII Intact, Speech Normal Skin: Present: Warm, Dry, Normal Color. No: Rashes Psychiatric: Present: Alert, Oriented x 3, Normal Insight, Normal Concentration Medical Decision Making ED Course and Treatment: 02/25/18 06:04 Impression: 52 year old female complaining of dysuria and urinary frequency for the past week. Plan: -- UA -- Reassess and disposition Progress Notes: - Lab Interpretations Lab Results: Lab Results 02/25/18 06:04: Urine Color Dark red, Urine Appearance Turbid, Urine pH 6.5, Ur Specific [place] 1.015, Urine Protein >=300 H, Urine Glucose (UA) 500 H, Urine Ketones 15 H, Urine Blood Negative, Urine Nitrate Positive H, Urine Bilirubin Negative, Urine Urobilinogen >=8.0, Ur Leukocyte Esterase Moderate H, Urine RBC Pending, Urine WBC Pending - Medication Orders Current Medication Orders: Cephalexin Monohydrate (Keflex) 500 mg PO ONCE STA PRN Reason: Protocol Stop: 02/25/18 06:48 Phenazopyridine HCl (Pyridium) 200 mg PO PC STA Stop: 02/25/18 06:48 - Scribe Statement The provider has reviewed the documentation as recorded by the Norma Grier Provider Scribe Attestation: All medical record entries made by the Scribe were at my direction and personally dictated by me. I have reviewed the chart and agree that the record accurately reflects my personal performance of the history, physical exam, medical decision making, and the department course for this patient. I have also personally directed, reviewed, and agree with the discharge instructions and disposition. Disposition/Present on Arrival - Present on Arrival Any Indicators Present on Arrival: No History of DVT/PE: No History of Uncontrolled Diabetes: No Urinary Catheter: No History of Decub. Ulcer: No History Surgical Site Infection Following: None - Disposition Have Diagnosis and Disposition been Completed?: Yes Diagnosis: UTI (urinary tract infection) Disposition: HOME/ ROUTINE Disposition Time: 06:50 Patient Plan: Discharge Condition: GOOD Discharge Instructions (ExitCare): Urinary Tract Infection, Adult (DC) Additional Instructions: Drink plenty of liquids/take meds as prescribed/follow up with your doctor this week Prescriptions: Cephalexin [cephalexin] 500 mg PO BID #14 cap oxyCODONE/Acetaminophen [Percocet 5/325 mg Tab] 1 ea PO Q6 PRN #10 tab PRN Reason: Pain, Moderate (4-7) Phenazopyridine [Pyridium] 200 mg PO TID #15 tab Forms: [employer] (Mexican)
[2018-02-25 06:27] LABS: PH,URINE 6.5 (4.7-8.0); URINE BILIRUBIN NEGATIVE (NEGATIVE); URINE BLOOD NEGATIVE (NEGATIVE); URINE GLUCOSE (UA) 500 mg/dL (NEGATIVE); URINE LEUKOCYTE ESTERASE MODERATE Leu/uL (NEGATIVE); URINE PROTEIN >=300 mg/dL (<30 mg/dL); URINE UROBILINOGEN >=8.0 E.U./dL (<1 E.U./dL)
[2018-02-25 06:38] LABS: URINE APPEARANCE TURBID (CLEAR); URINE COLOR DARK RED (YELLOW)
[2018-02-25] MEDS ORDERED: Oxycodone/Acetaminophen 5/325 mg Tab PO STA (06:49)
[2018-02-25 06:50] LABS: URINE RBC NEGATIVE /hpf (0-2)
[2018-02-25 06:52] LABS: URINE BACTERIA LARGE (NEG)
[2018-02-25 07:00] VITALS: BP 137/72; PULSE 68; RESP 18; TEMP 97.6; O2SAT 98
== END 2018-02-25 07:05 | disposition home or self-care (01) ==
LOC: ED 05:52
DX: N39.0 Urinary tract infection, site not specified (principal)

== ENCOUNTER 2018-04-21 09:38 | Emergency (ER) | payer MEDICARE ==
[2018-04-21 09:45] VITALS: BP 150/84; PULSE 70; RESP 18; TEMP 97.9; O2SAT 98; BMI 28.1
--- NOTE | 2018-04-21 10:16 | ED PDOC ---
Arrival/HPI - General Historian: Patient - History of Present Illness Narrative History of Present Illness (Text): 04/21/18 10:13 52yo female with pmhx of Pancreatitis who present with complaint of severe lower back pain s/p laminectomy 4weeks ago at [place]. States she takes Oxycontin and hydromorphone and ran out. came to ED requesting a prescription for 2days until she sees her pain management in 2days. she denies acute trauma, urinary/fecal incontinence, saddle anesthesia, nausea, abdominal pain, focal weakness, urinary symptoms. <Dirnicky,Happiness A - Last Filed: 04/21/18 15:58> <Lloyd Perez - Last Filed: 04/23/18 20:59> - General Chief Complaint: Back Pain Time Seen by Provider: 04/21/18 09:47 Past Medical History - Provider Review Nursing Documentation Reviewed: Yes - Infectious Disease Hx of Infectious Diseases: None - Tetanus Immunization Tetanus Immunization: Unknown - Cardiac Hx Cardiac Disorders: No - Pulmonary Hx Respiratory Disorders: Yes Hx Asthma: Yes - Neurological Hx Neurological Disorder: No - HEENT Hx HEENT Disorder: No - Renal Hx Renal Disorder: No - Endocrine/Metabolic Hx Endocrine Disorders: No - Hematological/Oncological Hx Blood Disorders: No - Integumentary Hx Dermatological Disorder: No - Musculoskeletal/Rheumatological Hx Musculoskeletal Disorders: Yes (left knee tendon) Hx Back Pain: Yes - Gastrointestinal Hx Gall Bladder Disease: Yes Hx Pancreatitis: Yes - Genitourinary/Gynecological Hx Genitourinary Disorders: No - Psychiatric Hx Psychophysiologic Disorder: No Hx Substance Use: No - Surgical History Hx Appendectomy: Yes Hx Cholecystectomy: Yes Hx Hysterectomy: Yes (SHYLA/BSO) Other/Comment: artificial knee cap right lower extremity. Back Sx - Anesthesia Hx Anesthesia: Yes Hx Anesthesia Reactions: No Hx Malignant Hyperthermia: No - Suicidal Assessment Feels Threatened In Home Enviroment: No <Diru,Happiness A - Last Filed: 04/21/18 15:58> Family/Social History - Physician Review Nursing Documentation Reviewed: Yes Family/Social History: Unknown Family HX Smoking Status: Never Smoked Hx Alcohol Use: No Hx Substance Use: No Hx Substance Use Treatment: No <Diru,Happiness A - Last Filed: 04/21/18 15:58> Allergies/Home Meds <Diru,Happiness A - Last Filed: 04/21/18 15:58> <Lloyd Perez - Last Filed: 04/23/18 20:59> Allergies/Adverse Reactions: Allergies iodine Allergy (Verified 04/21/18 09:52) ANGIOEDEMA shellfish derived Allergy (Verified 04/21/18 09:52) ANAPHYLAXIS Sulfa (Sulfonamide Antibiotics) Allergy (Verified 04/21/18 09:52) ANGIOEDEMA Home Medications: Home Meds Medication Instructions Recorded Confirmed Oxycodone HCl [Oxycontin] 60 mg PO Q12H 05/23/17 04/21/18 Review of Systems - Physician Review All systems were reviewed & negative as marked: Yes - Review of Systems Constitutional: Normal Eyes: Normal ENT: Normal Respiratory: Normal Cardiovascular: Normal Gastrointestinal: Normal Genitourinary Female: Normal Musculoskeletal: Back Pain Skin: Normal Neurological: Normal Endocrine: Normal Hemo/Lymphatic: Normal Psychiatric: Normal <Diru,Happiness A - Last Filed: 04/21/18 15:58> Physical Exam Vital Signs Reviewed: Yes Vital Signs Temp Pulse Resp BP Pulse Ox 04/21/18 09:44 97.9 F 70 18 150/84 98 Temperature: Afebrile Blood Pressure: Normal Pulse: Regular Respiratory Rate: Normal Appearance: Positive for: Well-Appearing, Non-Toxic, Comfortable Pain Distress: None Mental Status: Positive for: Alert and Oriented X 3 - Systems Exam Head: Present: Atraumatic, Normocephalic Pupils: Present: PERRL Extroacular Muscles: Present: EOMI Conjunctiva: Present: Normal Mouth: Present: Moist Mucous Membranes Neck: Present: Normal Range of Motion Respiratory/Chest: Present: Clear to Auscultation, Good Air Exchange. No: Respiratory Distress, Accessory Muscle Use Cardiovascular: Present: Regular Rate and Rhythm, Normal S1, S2. No: Murmurs Abdomen: No: Tenderness, Distention, Peritoneal Signs Back: Present: Midline Tenderness, Paraspinal Tenderness, Pain with Leg Raise Upper Extremity: Present: Normal Inspection. No: Cyanosis, Edema Lower Extremity: Present: Normal Inspection. No: Edema Neurological: Present: GCS=15, CN II-XII Intact, Speech Normal Skin: Present: Warm, Dry, Normal Color. No: Rashes Psychiatric: Present: Alert, Oriented x 3, Normal Insight, Normal Concentration <Diru,Happiness A - Last Filed: 04/21/18 15:58> Vital Signs Temp Pulse Resp BP Pulse Ox 04/21/18 09:44 97.9 F 70 18 150/84 98 <Lloyd Perez - Last Filed: 04/23/18 20:59> Medical Decision Making ED Course and Treatment: 04/21/18 15:58 Pt in ED for Oxycodone prescription s/p laminectomy 4 weeks ago. she was ambulatory and neurologically intact. Pt was checked on the [facility] [place] - She filled a rx for 42 of hydromorphone 4mg and oxycontin 60mg 14 rx on 04/15/18. she was given a rx of 4tabs of Percocet 10/325. Was strongly advised to f/u with her pain management for more pain medications. <Syeda Pickett - Last Filed: 04/21/18 15:58> - PA / TISSUE PACKER / Resident Statement / has reviewed & agrees with the documentation as recorded. <Lloyd Perez - Last Filed: 04/23/18 20:59> Disposition/Present on Arrival - Present on Arrival Any Indicators Present on Arrival: No History of DVT/PE: No History of Uncontrolled Diabetes: No Urinary Catheter: No History of Decub. Ulcer: No History Surgical Site Infection Following: None - Disposition Have Diagnosis and Disposition been Completed?: Yes Disposition Time: 10:20 Patient Plan: Discharge <Syeda Pickett - Last Filed: 04/21/18 15:58> <Lloyd Perez - Last Filed: 04/23/18 20:59> - Disposition Diagnosis: Back pain Disposition: HOME/ ROUTINE Condition: STABLE Discharge Instructions (ExitCare): Low Back Pain (DC) Additional Instructions: Follow up with your pain management Return to ED for new symptoms Prescriptions: Acetaminophen/Oxycodone Hydr [Percocet 10/325 mg Tab] 1 tab PO Q6H #4 tab Referrals: Anand Rivas MD [Staff Provider] - Follow up with primary Forms: [employer] (Citizen Of [place])
== END 2018-04-21 10:26 | disposition home or self-care (01) ==
LOC: ED 09:38
DX: M54.5 Low back pain (principal)

== ENCOUNTER 2018-04-29 17:53 | Emergency (ER) | payer MEDICARE ==
[2018-04-29 17:53] VITALS: BMI 28.1
--- NOTE | 2018-04-29 18:00 | ED PDOC ---
Arrival/HPI - General Time Seen by Provider: 04/29/18 17:58 Historian: Patient - Critical Care Critical Care Minutes: Other (65 minutes) - History of Present Illness Narrative History of Present Illness (Text): 04/29/18 17:54 A 52 year old male, whose past medical history includes asthma, back pain, cholecystectomy, , left knee tendon, pancreatitis, brought in by EMS to the emergency department for possible overdose. Patient arrives to the Emergency room 17:54. Per EMS, BLS was at the scene at 17:01. EMS arrived at 17:18. Gave patient 2 IV of Narcan and 3 of epi. Per EMS, patient's family member told patient had taken 3-4 pills of Percocet and Oxycontone and later was breathing heavily while sitting on the couch at home. However when EMS arrived patient was asystole. Patient was intubated prior to arrival. Last vital signs taken at 17:28 and last blood pressure reading was 17:32. Blood pressure was 191/148. Last EKG reading was NSR @ 78 BPM. Here in the Emergency room patient's heart rate currently in bradycardia. ROSC obtained. PMD: Dr. Agustin Gibbons Past Medical History - Provider Review Nursing Documentation Reviewed: Yes - Infectious Disease Hx of Infectious Diseases: None - Tetanus Immunization Tetanus Immunization: Unknown - Cardiac Hx Cardiac Disorders: No - Pulmonary Hx Respiratory Disorders: Yes Hx Asthma: Yes - Neurological Hx Neurological Disorder: No - HEENT Hx HEENT Disorder: No - Renal Hx Renal Disorder: No - Endocrine/Metabolic Hx Endocrine Disorders: No - Hematological/Oncological Hx Blood Disorders: No - Integumentary Hx Dermatological Disorder: No - Musculoskeletal/Rheumatological Hx Musculoskeletal Disorders: Yes (left knee tendon) Hx Back Pain: Yes - Gastrointestinal Hx Gall Bladder Disease: Yes Hx Pancreatitis: Yes - Genitourinary/Gynecological Hx Genitourinary Disorders: No - Psychiatric Hx Psychophysiologic Disorder: No Hx Substance Use: No - Surgical History Hx Appendectomy: Yes Hx Cholecystectomy: Yes Hx Hysterectomy: Yes (SHYLA/BSO) Other/Comment: artificial knee cap right lower extremity. Back Sx - Anesthesia Hx Anesthesia: Yes Hx Anesthesia Reactions: No Hx Malignant Hyperthermia: No - Suicidal Assessment Feels Threatened In Home Enviroment: No Family/Social History - Physician Review Nursing Documentation Reviewed: Yes Family/Social History: No Known Family HX Smoking Status: Never Smoked Hx Alcohol Use: No Hx Substance Use: No Hx Substance Use Treatment: No Allergies/Home Meds Allergies/Adverse Reactions: Allergies iodine Allergy (Verified 04/21/18 09:52) ANGIOEDEMA shellfish derived Allergy (Verified 04/21/18 09:52) ANAPHYLAXIS Sulfa (Sulfonamide Antibiotics) Allergy (Verified 04/21/18 09:52) ANGIOEDEMA Home Medications: Home Meds Medication Instructions Recorded Confirmed Oxycodone HCl [Oxycontin] 60 mg PO Q12H 05/23/17 04/29/18 ALPRAZolam [Xanax] 0.25 mg PO PRN PRN 04/29/18 04/29/18 Gabapentin [Neurontin] 600 mg PO BID 04/29/18 04/29/18 Zolpidem [Ambien] 5 mg PO DAILY 04/29/18 04/29/18 Review of Systems - Review of Systems Systems not reviewed;Unavailable: Altered Mental Status (possible overdose) Physical Exam Mental Status: Positive for: other (unconscious and unresponsive) - Systems Exam Pupils: Present: Other (ixed and dilated 8mm bilaterally) Respiratory/Chest: Present: Decreased Breath Sounds, Other (breath sounds equal with intubation) Cardiovascular: Present: Bradycardic. No: Murmurs Abdomen: No: Tenderness, Distention, Peritoneal Signs Lower Extremity: No: Capillary Refill < 2 s (capillary refill delay) Neurological: No: GCS=15 (GCS = 3) Skin: Present: Cold, Other (no obvious sings of trauma anywhere on the body.) Psychiatric: No: Alert, Oriented x 3 Medical Decision Making ED Course and Treatment: 04/29/18 18:29 Impression: 52 year old female with possible overdose. Since upon arrival to ER, patient's pupils have been blown. Plan: -- EKG -- Arterial Blood Gas -- Chest X-ray -- Labs -- Ventilator -- [place] Urinary Catheter -- IV Fluids -- Reassess and disposition Prior Visits: Notes and results from previous visits were reviewed. Progress Notes: EKG: Ordered, reviewed, and independently interpreted the EKG. Rate : 54 BPM Rhythm : Sinus bradycardia Interpretation : Prolonged QT, normal ST-waves, normal WI and QRS, normal intervals. Comparison : No previous EKG for comparison. 04/29/18 18:23 Patient's heart rate has dropped into low bradycardia. Chest compressions 10/29/18 18:35 Patient's mother and cousin arrive to Emergency room. Per mother, patient went this morning to hop picker medications from pain management. At approximately 13:00, patient told her at home she was tired and wanted to lay on the couch. Since then, patient sometimes made noises that mother assumed was the patient snoring. At 16:30, mother tried waking patient up and found she had no pulse and was not waking up and saw patient's lips turning blue. She immediately call 911 afterwards. 04/29/2018 18:45 Chest X-ray IMPRESSION: Endotracheal tube in satisfactory position. No focal consolidation or pleural effusion. Dictator: Claude Farnsworth 04/29/18 18:59 Time of . Patient resulted in flatlining. Family currently at bedside. Patient has been removed from ventilator. Nurses calling durable medical equipment technician's office. - Scribe Statement The provider has reviewed the documentation as recorded by the Scribe Ashok Lee Provider Scribe Provider Scribe Attestation: All medical record entries made by the Scribe were at my direction and personally dictated by me. I have reviewed the chart and agree that the record accurately reflects my personal performance of the history, physical exam, medical decision making, and the department course for this patient. I have also personally directed, reviewed, and agree with the discharge instructions and disposition. Disposition/Present on Arrival - Present on Arrival Any Indicators Present on Arrival: No History of DVT/PE: No History of Uncontrolled Diabetes: No Urinary Catheter: No History Surgical Site Infection Following: None - Disposition Have Diagnosis and Disposition been Completed?: Yes Diagnosis: Cardiopulmonary arrest Disposition: WITH WITHOUT AUTOPSY Disposition Time: 18:59 Patient Plan: Other (/accepted to Medical Examiners office @2014) Condition:
[2018-04-29] MEDS ORDERED: Sodium Chloride 0.9% 1,000 ML IV STA (18:15)
[2018-04-29 18:31] LABS: BASO # 0.16 K/mm3 (0.0-2.0); BASO % 0.3 % (0.0-3.0); EOS # 0.4 (0.0-0.7); EOS % 0.8 % (1.5-5.0); GRAN # 39.36 (1.4-6.5); GRAN % 77.1 % (50.0-68.0); HEMOGLOBIN 8.5 g/dL (12.0-16.0); LYMPH # 8.5 (1.2-3.4); LYMPH % 16.5 % (22.0-35.0); MEAN CELL VOLUME 81.4 fl (80.0-105.0); MEAN CORPUSCULAR HEMOGLOBIN 21.6 pg (25.0-35.0); MEAN CORPUSCULAR HGB CONC 26.6 g/dl (31.0-37.0); MEAN PLATELET VOLUME 9.3 fl (7.0-11.0); MONO # 2.7 (0.1-0.6); MONO % 5.3 % (1.0-6.0); PLATELET COUNT 382 10^3/uL (120.0-450.0); RBC 3.93 10^6/uL (3.5-6.1); RED CELL DISTRIBUTION WIDTH 17.4 % (11.5-14.5)
[2018-04-29 18:33] LABS: URINE BILIRUBIN NEGATIVE (NEGATIVE); URINE BLOOD NEGATIVE (NEGATIVE); URINE GLUCOSE (UA) NEGATIVE (NEGATIVE); URINE LEUKOCYTE ESTERASE NEGATIVE Leu/uL (NEGATIVE); URINE PROTEIN NEGATIVE mg/dL (<30 mg/dL); URINE UROBILINOGEN 0.2 E.U./dL (<1 E.U./dL)
[2018-04-29 18:36] LABS: HCG,QUALITATIVE URINE NEGATIVE (NEGATIVE); URINE APPEARANCE CLEAR (CLEAR); URINE COLOR LIGHT YELLOW (YELLOW)
[2018-04-29 18:37] LABS: INR 1.51; PROTHROMBIN TIME 17.4 SECONDS (9.4-12.5)
[2018-04-29 18:39] LABS: WHITE BLOOD COUNT 51.1 10^3/uL (4.5-11.0)
[2018-04-29 18:43] LABS: ALB/GLOB RATIO 1.2 (1.1-1.8); ALBUMIN 3.5 g/dL (3.0-4.8); CALCIUM 8.4 mg/dL (8.4-10.5)
--- NOTE | 2018-04-29 18:49 | RAD ---
Date of service: 04/29/2018 HISTORY: s/p cardiac arrest COMPARISON: Chest radiograph dated 05/23/2017 FINDINGS: LUNGS: No active pulmonary disease. PLEURA: No significant pleural effusion identified, no pneumothorax apparent. CARDIOVASCULAR: Aortic atherosclerotic calcifications. Cardiomediastinal silhouette stably prominent OSSEOUS STRUCTURES: Unchanged. VISUALIZED UPPER ABDOMEN: Quadrant surgical clips redemonstrated. OTHER FINDINGS: Endotracheal tube with tip between the clavicles and darius IMPRESSION: Endotracheal tube in satisfactory position. No focal consolidation or pleural effusion.
[2018-04-29 18:51] LABS: ACETAMINOPHEN < 10.0 ug/ml (10.0-20.0); SALICYLATE < 1 mg/dL (2.0-20.0)
[2018-04-29 18:53] VITALS: BP 43/24; PULSE 40; RESP 24; TEMP 95.6; O2SAT 90
[2018-04-29 18:58] LABS: BARBITURATES, UR NEGATIVE (NEGATIVE); BENZODIAZEPINES, UR POSITIVE (NEGATIVE); OPIATES, UR POSITIVE (NEGATIVE)
[2018-04-29 19:01] LABS: TROPONIN I 0.05 ng/mL
[2018-04-29 19:10] LABS: BAND 4 % (0-2); EOSINOPHIL 3 % (0.0-3.0); LARGE PLATELETS PRESENT; LYMPHOCYTE 27 % (22.0-35.0); METAMYELOCYTE 4 %; MONOCYTE 5 % (1.0-6.0); MYELOCYTE 3 %; NEUTROPHIL 54 % (50.0-70.0); NUCLEATED RED BLOOD CELL 4 %; PLATELET ESTIMATE NORMAL (NORMAL)
[2018-04-29 19:11] LABS: ANISOCYTOSIS SLIGHT; HYPOCHROMIA 1+; POLYCHROMASIA SLIGHT
[2018-04-29 19:49] LABS: PHENCYCLIDINE, UR NEGATIVE (NEGATIVE)
--- NOTE | 2018-04-30 16:16 | CARD ---
APPROVED REPORT Date of service: 04/29/2018 EKG Measurement Heart [id number] <Conclusion> Sinus bradycardia Prolonged QT Abnormal ECG
== END 2018-04-29 21:12 ==
LOC: ED 17:53
DX: I46.9 Cardiac arrest, cause unspecified (principal); J45.909 Unspecified asthma, uncomplicated; K85.90 Acute pancreatitis without necrosis or infection, unspecified; Z90.49 Acquired absence of other specified parts of digestive tract
CPT/HCPCS: 71045; 80053; 81003; 82550; 83615; 84484; 84703; 85025; 85610; 93005; 96360; 99285; G0480; J7030